=== PATIENT | male | born 1945 | race Caucasian/White ===

== ENCOUNTER 2018-02-24 13:18 | Emergency (ER) | payer MEDICARE, SELFPAY ==
[2018-02-24 13:37] VITALS: BP 154/86; PULSE 97; RESP 26; TEMP 37.3; O2SAT 96
--- NOTE | 2018-02-24 14:22 | ED.GENADUL_ITS ---
Discharge Plan Disposition Patient Disposition: HOME Condition: Good Discharge Details Chief Complaint: GenMedical Clinical Impression: URI (upper respiratory infection), Abdominal pain Primary Care Provider: Saman Enriquez ED Provider: Eulogio Leroy Home Meds and New Rx's Prescriptions: New lidocaine [Lidoderm] 1 PATCH patch 1 patch Topical Q24H Qty: 4 RF: 0 cefpodoxime 200 mg tablet 200 mg PO BID 7 Days Qty: 14 RF: 0 doxycycline hyclate 100 mg capsule 100 mg PO BID Qty: 14 RF: 0 No Action mupirocin calcium [Bactroban] 30 GM cream 1 trent Topical bid prn Qty: 30 RF: 1 aspirin 81 MG tablet,delayed release (DR/EC) 81 mg PO HS RF: 0 omeprazole 20 MG capsule,delayed release(DR/EC) 20 mg PO BID Qty: 180 RF: 4 albuterol sulfate [ProAir HFA] 8.5 GM HFA aerosol inhaler 2 puff Inhalation Q4H PRN Qty: 3 RF: 4 venlafaxine [Effexor XR] 37.5 MG capsule,extended release 24hr 37.5 mg PO DAILY Qty: 90 RF: 4 metoprolol tartrate 25 MG tablet 25 mg PO BID Qty: 180 RF: 4 cyanocobalamin (vitamin B-12) [Vitamin B-12] 1,000 MCG tablet 1,000 mcg PO DAILY Qty: 100 RF: 4 ezetimibe [Zetia] 10 MG tablet 10 mg PO DAILY Qty: 90 RF: 4 simvastatin 40 MG tablet 40 mg PO HS Qty: 90 RF: 4 nitroglycerin 0.4 MG tablet, sublingual 0.4 mg Sublingual PRN Qty: 25 RF: 1 metformin 850 MG tablet 850 mg PO BID Qty: 180 RF: 3 blood sugar diagnostic [FreeStyle Test] 1 EACH strip 1 strip Miscellaneous DAILY Qty: 100 RF: 0 lancets [FreeStyle Lancets] 1 EACH misc 1 ea Intradermal DAILY Qty: 100 RF: 0 loperamide 2 MG capsule 2 mg PO QLOOSE PRNQty: 20 RF: 0 ascorbic acid (vitamin C) [Vitamin C] 500 MG tablet 500 mg PO DAILY RF: 0 cetirizine [All Day Allergy (cetirizine)] 10 MG capsule 10 mg PO DAILY RF: 0 fluticasone-vilanterol [Breo Ellipta] 1 EACH blister with device 1 ea Inhalation DAILY RF: 0 ipratropium-albuterol 3 ML solution for nebulization 3 ml Inhalation PRN PRNRF: 0 prednisone 20 MG tablet 20 mg PO DIRECTED Qty: 12 RF: 0 Discharge Instructions Instructions: Upper Respiratory Infection (ED), Abdominal Pain (ED) Additional Instructions: Please take medication as directed. Please follow-up with your surgeon as soon as possible. If you notice any worsening of your symptoms, or any new symptoms such as vomiting, diarrhea, fever, chills, shortness of breath, chest pain, numbness, weakness, or fainting , please return immediately to the emergency department for reevaluation. Please follow up with your primary care provider as soon as possible for reassessment and reevaluation. As always, it was a pleasure participating in your medical care today. Referrals: Saman Enriquez [Primary Care Provider] - Medical Decision Making <Bob Medina MD - Last Filed: 02/24/18 15:32> 72-year-old male presents from outpatient clinic where he presented with approximately 5 days of cough and congestion. He also complains of right lower quadrant mass and tenderness in the area of previous hernia repair. He is afebrile, has a mildly increased respiratory rate and few scattered rhonchi. Exam is notable also for palpable mass of the right lower quad. Differential diagnosis includes pneumonia, influenza, as well as consideration of bowel obstruction or incarcerated hernia. Labs obtained, patient referred for CT images. Diagnostics: White blood cell count of 3.71, hematocrit 36. Chemistries reveal hyponatremia with sodium 125. Lipase is negative as is troponin. Flu neg. Lab Data Lab results reviewed: Yes I reviewed the patient's lab results. Laboratory Results - last 24 hr 02/24/18 02/24/18 14:12 14:22 WBC 3.77 L RBC 4.03 L Hgb 12.4 L Hct 36.6 L MCV 90.8 MCH 30.8 MCHC 33.9 RDW 12.8 Plt Count 217 MPV 9.2 Immature Gran % 0.0 Neutrophils % 55.1 Lymphocytes % 32.4 Monocytes % 12.2 Eosinophils % 0.0 Basophils % 0.3 Absolute Neutrophils 2.08 Absolute Lymphocytes 1.22 Absolute Monocytes 0.46 Absolute Eosinophils 0.00 Absolute Basophils 0.01 Sodium 125 L Potassium 4.1 Chloride 91 L Carbon Dioxide 24.7 Anion Gap 9.3 BUN 15 Creatinine 1.08 Estimated GFR/1.73 m2 >= 60.00 Glucose 155 H Calcium 9.1 Magnesium 1.6 L Total Bilirubin 0.3 AST 21 ALT 35 Alkaline Phosphatase 57 Troponin I 0.02 Total Protein 7.2 Albumin 4.0 Lipase 101 ECG Data Attestation: I personally reviewed and interpreted this ECG (s) as follows: Interpretation: Normal sinus rhythm, rate of 78, the QRS is narrow, there is no ST segment elevation <Eulogio Leroy DO - Last Filed: 02/24/18 18:10> Case is signed out to me my My colleague Andre Medina. Pending CT results. CT results have returned for the chest demonstrate atelectasis, for the abdomen and pelvis demonstrate good inguinal hernia and a lateral abdominal wall hernia on the right which does contain the cecum and the appendix, appendix is unremarkable. No signs of obstruction. I did discuss the case with the surgeon Dr. Kaye. She agrees with the read, and recommends no additional acute surgical intervention at this time. I evaluated the patient and he is tolerating p.o. well, he is having no vomiting, or signs of outlet obstruction. He is having regular bowel movements. He does have occasional episodes of dry heaving L. Patient's pain is well controlled. He also does suffer from upper respiratory infection-like symptoms. I am concerned for clinical pneumonia. With the longevity of his symptoms we will give antibiotics for this. Recommend continued use of his inhalers at home. We will give a Lidoderm patch for additional pain control. Vital signs are stable and reassuring. We discussed the importance of follow-up, as well as red flags for which to return the patient understands. I have extensively reviewed the treatment plan and discharge instructions with the patient and their family. I have addressed all patient concerns at this time. The patient and family was made aware of what sy mptoms to monitor for that would warrant a return to the emergency department. Discussed the plan with the patient and family, they demonstrate verbal understanding and agreement with our assessment and plan at this time. Case is signed out to me my my colleague Andre Medina FINDINGS: Lower thorax: Please see CT scan of the chest results above. ABDOMEN: Liver: There is focal fatty infiltration of the liver at the level of the falciform ligament. Gallbladder and bile ducts: There are calcified gallstones within the gallbladder. Pancreas: The pancreas is unremarkable. Spleen: The spleen is within normal limits. Adrenals: The adrenal glands are unremarkable. Kidneys and ureters: The kidneys are within normal limits. Stomach and bowel: See below. Appendix: See Soft Tissues Finding. PELVIS: Bladder: The urinary bladder is unremarkable. Reproductive: The prostate is slightly enlarged and indents the bladder base. The seminal vesicles are unremarkable. ABDOMEN and PELVIS: Intraperitoneal space: Normal. No free air. No significant fluid collection. Bones/joints: There are degenerative changes of the lumbar spine. Soft tissues: The patient is status post right inguinal hernia repair. Just superior to the hernia repair, there is a lateral right abdominal wall hernia which contains a portion of the cecum and the appendix. The appendix is within normal limits. This does not appear to be obstructing clinical correlation however is recommended. Vasculature: There are arteriosclerotic changes of the aorta. There are phleboliths within the pelvis. Lymph nodes: No enlarged lymph nodes. IMPRESSION: Status post right inguinal hernia repair. Superior to the repair there is a right lateral abdominal wall hernia which contains a portion of the cecum and the appendix. The appendix is unremarkable. This does not appear to be obstructing. Clinical correlation is recommended. Cholelithiasis. Dictated and Authenticated by: Yury Sue MD. HPI <Bob Medina MD - Last Filed: 02/24/18 15:32> General Mode of arrival: ambulatory . Date/Time Provider Initiated Documentation: 02/24/18 13:57 . Limitations to Documentation: no limitations . Information obtained by: patient and family . History of Present Illness described as moderate, Quality is described as burning, and is localized to the chest. Patient reports no radiation. Patient started experiencing this day(s) and it has been constant. No relieving factors improve symptom(s), No exacerbating factors reported . Patient notes cough, fever/chills and loss of appetite. Patient did receive the following treatments prior to arrival, none HPI Narrative: 72-year-old male referred from [facility] where he presented with approximately 5 days of cough, chest congestion with production of green and yellow sputum. He also describes days of right lower quadrant abdominal discomfort in the area of previous hernia repair. Related Data Home Medications Medication Instructions Recorded Confirmed mupirocin calcium [Bactroban] 1 trent TOPICAL bid prn #30 gm 11/06/12 aspirin 81 mg PO HS tab-cap 06/25/13 09/18/16 loperamide 2 mg PO QLOOSE PRN #20 cap 10/30/14 09/18/16 albuterol sulfate [ProAir HFA] 2 puff INHALATION Q4H PRN #3 11/26/14 inhaler omeprazole 20 mg PO BID #180 cap 11/26/14 cyanocobalamin (vitamin B-12) 1,000 mcg PO DAILY #100 tab-cap 01/10/15 [Vitamin B-12] metoprolol tartrate 25 mg PO BID #180 tab-cap 01/10/15 venlafaxine [Effexor XR] 37.5 mg PO DAILY #90 tab-cap 01/10/15 ezetimibe [Zetia] 10 mg PO DAILY #90 tab-cap 01/20/15 simvastatin 40 mg PO HS #90 tab-cap 01/20/15 nitroglycerin 0.4 mg SUBLINGUAL PRN #25 tab-cap 04/05/15 metformin 850 mg PO BID #180 tab-cap 05/11/15 blood sugar diagnostic [FreeStyle #100 strip 06/22/15 Test] lancets [FreeStyle Lancets] #100 ea 06/22/15 ascorbic acid (vitamin C) [Vitamin 500 mg PO DAILY 07/11/16 09/18/16 C] cetirizine [All Day Allergy 10 mg PO DAILY 07/16/16 09/18/16 (cetirizine)] fluticasone-vilanterol [Breo 1 ea INHALATION DAILY 07/16/16 09/18/16 Ellipta] ipratropium-albuterol 3 ml INHALATION PRN PRN 09/18/16 09/18/16 prednisone 20 mg PO DIRECTED #12 tablet 09/18/16 cefpodoxime 200 mg PO BID 7 Days #14 tab 02/24/18 doxycycline hyclate 100 mg PO BID #14 cap 02/24/18 lidocaine [Lidoderm] 1 patch TOPICAL Q24H #4 patch 02/24/18 Previous Rx's Medication Instructions Recorded loperamide 2 mg PO QLOOSE PRN #20 cap 10/30/14 prednisone 20 mg PO DIRECTED #12 tablet 09/18/16 cefpodoxime 200 mg PO BID 7 Days #14 tab 02/24/18 doxycycline hyclate 100 mg PO BID #14 cap 02/24/18 lidocaine [Lidoderm] 1 patch TOPICAL Q24H #4 patch 02/24/18 Allergies Allergy/AdvReac Type Severity Reaction Status Date / Time celecoxib Allergy Severe SWELLING Unverified 09/18/16 14:33 rosuvastatin calcium AdvReac Severe DIARRHEA Unverified 09/18/16 14:33 [From Crestor] atorvastatin AdvReac Intermediate myalgia Unverified 09/18/16 14:33 codeine phosphate AdvReac Unknown unknown Unverified 09/18/16 14:33 [From Robitussin A-C] General Stated Complaint: GenMedical BELINDA: 2 Review of Systems <Bob Medina MD - Last Filed: 02/24/18 15:32> Review of Systems 8 systems reviewed and otherwise negative PFSH <Bob Medina MD - Last Filed: 02/24/18 15:32> Surgical History VIDEO CAPSULE ENDOSCOPY (10/13/13) Family History Mother Essential hypertension Heart disease Hyperlipidemia Father Heart disease Sister Essential hypertension Hyperlipidemia Brother No problems noted. Brother Stroke Brother Essential hypertension Heart disease Hyperlipidemia Brother Essential hypertension Hyperlipidemia Brother Heart disease Grandfather Heart disease Grandfather No problems noted. Grandmother Personal history of malignant neoplasm Heart disease Grandmother No problems noted. Social History Smoking/Tobacco Use Status: Former Tobacco Use Exam <Bob Medina MD - Last Filed: 02/24/18 15:32> Narrative Exam Narrative: GEN: awake, alert, oriented 3. Pleasant, well groomed, interactive. HEAD: Normocephalic, atraumatic ENT: Mucous membranes moist, oropharynx unremarkable, External ear exam unrem arkable EYES: PERRL, EOMI NECK: Full ROM, no ANGELA, no menigismus CHEST/RESP: Nontender, few scattered rhonchi CARDIOVASCULAR: RRR, no murmur, rub jackie. 2+ Rad pulse bilateral ABDOMEN: Soft, nontender, palpable mass right lower quadrant, minimally tender without rebound or guard. +Bowel sounds EXT: Full ROM, no edema, no rash Neuro: Grossly normal neurologic exam, conversant, interactive. Psych: Speech fluent, thoughts congruent, affect normal Course <Bob Medina MD - Last Filed: 02/24/18 15:32> Vital Signs Temperature 37.3 C 02/24/18 13:37 Pulse 97 H 02/24/18 13:37 Respiratory Rate 26 H 02/24/18 13:37 Blood Pressure 154/86 H 02/24/18 13:37 Pulse Oximetry 96 02/24/18 13:37 Temperature 37.3 C 02/24/18 13:37 Temperature Source Skin 02/24/18 13:37 Pulse 97 H 02/24/18 13:37 Respiratory Rate 26 H 02/24/18 13:37 Respiratory Effort 02/24/18 13:46 Blood Pressure 154/86 H 02/24/18 13:37 Blood Pressure Position Sitting 02/24/18 13:37 Pulse Oximetry 96 02/24/18 13:37 Oxygen Delivery Method Room Air 02/24/18 13:37 Oxygen Flow Rate 0 02/24/18 13:37 Pain Level 7 02/24/18 13:37
[2018-02-24 14:30] LABS: Absolute Basophil Count 0.01 k/cumm (0.0-0.2); Absolute Lymphocyte Count 1.22 k/cumm (1.2-3.4); Absolute Monocyte Count 0.46 k/cumm (0.11-0.7); Absolute Neutrophil Count 2.08 k/cumm (1.2-6.7); Basophils % 0.3; HCT 36.6 % (40.0-50.0); HGB 12.4 g/dL (13.5-17.5); Lymphocytes % 32.4; Mean Corp. HGB Concentration 33.9 g/dL (32.0-36.0); Mean Corpuscular Hemoglobin 30.8 pg (27.0-33.0); Mean Corpuscular Volume 90.8 fL (80-95); Mean Platelet Volume 9.2 fL (8.0-11.0); Monocytes % 12.2; Neutrophils % 55.1; Platelet Count 217 x1000/uL (130-400); RBC 4.03 m/cumm (4.50-6.00); RBC Distribution Width 12.8 % (11.8-14.1); White Blood Cell Count 3.77 k/cumm (4.4-10.8)
--- NOTE | 2018-02-24 14:33 | DI.CT_ITS ---
SYMPTOM/DIAGNOSIS: COUGH , CONGESTION, RLQ MASS, MASS, ? MESH CHEST, ABDOMEN AND PELVIC CT: CT scan of the chest, abdomen and pelvis was performed following the uneventful administration of intravenous contrast material. ABDOMEN AND PELVIS: The liver is normal in size. No evidence of a hepatic mass is seen. The portal and superior mesenteric veins are patent. There are stones seen within the gallbladder. No biliary ductal dilatation is present. The pancreas is unremarkable. There is a persistent peripheral area of decreased attenuation around the spleen in the subcapsular region. This is unchanged dating back to the oldest CT scan on record of 04/12/13. There is unchanged prominence of the left adrenal gland. The right adrenal gland is unremarkable. The kidneys show normal and symmetric enhancement. No suspicious solid renal mass or obstruction is identified. The urinary bladder is intact. The reproductive organs are unremarkable. The abdominal aorta is of normal caliber with atherosclerosis. No aneurysmal dilatation is seen. No significant abdominal or pelvic adenopathy, ascites or pneumoperitoneum is present. The bowel shows no evidence of obstruction or inflammation. No findings to suggest an acute appendicitis are present. There is again seen a hernia along the right lateral anterior abdominal wall suggestive of a spigelian hernia. It contains a portion of the cecum and the appendix. No evidence of an incarceration or obstruction is present. There are post surgical changes of a right inguinal hernia with a mesh which appears unchanged. No evidence of a recurrent right inguinal hernia is seen. Degenerative changes are seen in the spine. IMPRESSION: 1. No evidence of an acute abdomen. 2. Right lateral abdominal wall hernia again noted with a loop of cecum and the appendix. No evidence of bowel obstruction or incarceration is seen. 3. Cholelithiasis. No biliary ductal dilatation. CHEST: There is atherosclerosis of the thoracic aorta but no aneurysmal dilatation. Heart size is within normal limits. No significant pericardial effusion is seen. No significant thoracic adenopathy is present. No pleural effusion or pneumothorax is identified. There are dependent atelectatic changes in the lung bases. Degenerative changes are seen in the spine. There are post surgical changes of a median sternotomy. No infiltrates are seen. The tracheobronchial tree is unremarkable. IMPRESSION: No acute pulmonary process.
[2018-02-24 14:44] LABS: ALT 35 U/L (12-78); AST 21 U/L (15-37); Alkaline Phosphatase 57 U/L (46-116); BUN 15 mg/dL (7-18); Bilirubin, Total 0.3 mg/dL (0.2-1.0); CO2 24.7 mmol/L (21.0-32.0); CREATININE 1.08 mg/dL (0.70-1.30); Calcium 9.1 mg/dL (8.5-10.1); Chloride 91 mmol/L (98-107); Glucose 155 mg/dL (70-100); Lipase 101 U/L (73-393); Magnesium 1.6 mg/dL (1.8-2.4); Potassium 4.1 mmol/L (3.5-5.1); Total Protein 7.2 g/dL (6.4-8.2); Troponin I 0.02 ng/mL (0.00-0.06)
[2018-02-24 14:48] LABS: Anion Gap 9.3 mmol/L (3-11)
[2018-02-24 14:49] LABS: Sodium 125 mmol/L (136-145)
[2018-02-24] MEDS: Normal Saline 1,000 ML 150 ML IV (15:00)
[2018-02-24] MEDS: Omnipaque 350 MG/ML 100 ML BTL IJ (16:20)
[2018-02-24] MEDS: Acetaminophen 500 MG TAB (17:10)
--- NOTE | 2018-02-24 17:19 | DI.VRAD_ITS ---
EXAM: CT Chest With Contrast EXAM DATE/TIME: 02/24/2018 2:35 PM CLINICAL HISTORY: 72 years old, male; Signs and symptoms; Other: Cough congestion plus rlq carol and mass ( mess); Prior surgery; Surgery date: 6+ months; Surgery type: Open heart ? TECHNIQUE: Axial computed tomography images of the chest with intravenous contrast. All CT scans at this facility use at least one of these dose optimization techniques: automated exposure control; mA and/or kV adjustment per patient size (includes targeted exams where dose is matched to clinical indication); or iterative reconstruction. Coronal and sagittal reformatted images were created and reviewed. CONTRAST: 100 ml of omnipaque 350 administered intravenously. COMPARISON: CT ABD PELVIS WO CONTRAST 07/03/2016 9:39 AM FINDINGS: Thyroid: The thyroid gland is within normal limits. Lungs: The tracheobronchial tree is patent bilaterally. There are slight dependent atelectatic changes at the lung bases. Pleural space: Normal. No pneumothorax. No pleural effusion. Heart: The patient is status post CABG. There are coronary artery calcifications. Aorta: There are slight arteriosclerotic changes of the aorta. Lymph nodes: No enlarged lymph nodes. Bones/joints: The patient is status post sternotomy. There are degenerative changes of the thoracic spine. Soft tissues: Unremarkable. IMPRESSION: Status post sternotomy and CABG. Coronary artery calcifications. Slight dependent atelectatic changes at the lung bases. EXAM: CT Abdomen and Pelvis With Contrast EXAM DATE/TIME: 02/24/2018 2:35 PM CLINICAL HISTORY: 72 years old, male; Signs and symptoms; Other: Cough congestion plus rlq carol and mass ( mess); Prior surgery; Surgery date: 6+ months; Surgery type: Open heart ? TECHNIQUE: Axial computed tomography images of the abdomen and pelvis with intravenous contrast. All CT scans at this facility use at least one of these dose optimization techniques: automated exposure control; mA and/or kV adjustment per patient size (includes targeted exams where dose is matched to clinical indication); or iterative reconstruction. Coronal and sagittal reformatted images were created and reviewed. CONTRAST: 100 ml of omnipaque 350 administered intravenously. COMPARISON: CT ABD PELVIS WO CONTRAST 07/03/2016 9:39 AM FINDINGS: Lower thorax: Please see CT scan of the chest results above. ABDOMEN: Liver: There is focal fatty infiltration of the liver at the level of the falciform ligament. Gallbladder and bile ducts: There are calcified gallstones within the gallbladder. Pancreas: The pancreas is unremarkable. Spleen: The spleen is within normal limits. Adrenals: The adrenal glands are unremarkable. Kidneys and ureters: The kidneys are within normal limits. Stomach and bowel: See below. Appendix: See Soft Tissues Finding. PELVIS: Bladder: The urinary bladder is unremarkable. Reproductive: The prostate is slightly enlarged and indents the bladder base. The seminal vesicles are unremarkable. ABDOMEN and PELVIS: Intraperitoneal space: Normal. No free air. No significant fluid collection. Bones/joints: There are degenerative changes of the lumbar spine. Soft tissues: The patient is status post right inguinal hernia repair. Just superior to the hernia repair, there is a lateral right abdominal wall hernia which contains a portion of the cecum and the appendix. The appendix is within normal limits. This does not appear to be obstructing clinical correlation however is recommended. Vasculature: There are arteriosclerotic changes of the aorta. There are phleboliths within the pelvis. Lymph nodes: No enlarged lymph nodes. IMPRESSION: Status post right inguinal hernia repair. Superior to the repair there is a right lateral abdominal wall hernia which contains a portion of the cecum and the appendix. The appendix is unremarkable. This does not appear to be obstructing. Clinical correlation is recommended. Cholelithiasis. Dictated and Authenticated by: Yury Sue MD. Ordering:LES Rojas MD
[2018-02-24 18:17] VITALS: BP 154/86; PULSE 97; RESP 26; TEMP 37.3; O2SAT 96
[2018-02-24 19:52] VITALS: RESP 16
--- NOTE | 2018-02-25 09:54 | CMPROGNOTE_ITS ---
Care Management Progress Note 02/25-Dr. Leroy requested assistance with a general surgery f/u within 1-2 months for abdominal wall hernia. Referral faxed to [facility] this am.
== END 2018-02-24 18:18 | disposition home or self-care (01) ==
PROVIDERS: Emergency Medicine; Emergency Provider Student in an Organized Health Care Education/Training Program; PCP Family Medicine
DX: J06.9 Acute upper respiratory infection, unspecified (principal); R10.9 Unspecified abdominal pain; K43.9 Ventral hernia without obstruction or gangrene
CPT/HCPCS: 36415; 74177; 80053; 83690; 87449; 93005; 96360; 96361; 99285; 71260; 83735; 84484; 85025; 93010; 99284; J3490

== ENCOUNTER → 2018-03-23 10:59 | Outpatient (BNVA) | payer MEDICARE, SELFPAY | PROVIDERS: PCP Family Medicine; Referring Provider Family Medicine; Visit Provider Surgery | DX: K46.0 Unspecified abdominal hernia with obstruction, without gangrene (principal) | CPT/HCPCS: 99203; 99214 ==

== ENCOUNTER 2018-11-08 11:59 | Inpatient (IN) | payer MEDICARE, SELFPAY ==
[2018-11-08] VITALS (38 sets, daily range): BP systolic 112–152; BP diastolic 61–88; PULSE 67–80; RESP 12–27; TEMP 36.5–36.7; O2SAT 91–98
[2018-11-08 12:20] LABS: Absolute Basophil Count 0.04 k/cumm (0.0-0.2); Absolute Eosinophil Count 0.53 k/cumm (0.0-0.7); Absolute Monocyte Count 0.65 k/cumm (0.11-0.7); Absolute Neutrophil Count 2.02 k/cumm (1.2-6.7); Basophils % 0.7; Eosinophils % 9.7; HCT 35.7 % (40.0-50.0); HGB 12.1 g/dL (13.5-17.5); Lymphocytes % 40.4; Mean Corp. HGB Concentration 33.9 g/dL (32.0-36.0); Mean Corpuscular Hemoglobin 30.6 pg (27.0-33.0); Mean Corpuscular Volume 90.4 fL (80-95); Mean Platelet Volume 9.2 fL (8.0-11.0); Monocytes % 11.9; Neutrophils % 37.3; Platelet Count 307 x1000/uL (130-400); RBC 3.95 m/cumm (4.50-6.00); RBC Distribution Width 12.9 % (11.8-14.1); White Blood Cell Count 5.44 k/cumm (4.4-10.8)
--- NOTE | 2018-11-08 12:20 | DI.CT_ITS ---
EXAM: CT HEAD WO CLINICAL HISTORY: L sided headache, L arm/leg weak/numb. TECHNIQUE: COMPARISON: No exams were available for comparison FINDINGS: Cranial CT was performed without contrast administration. There is mild generalized cerebral atrophy . No evidence of acute intracranial hemorrhage, mass effect, or midline shift. The orbital and temp oral bone structures appear intact. Mastoid air cells and paranasal sinuses appear well aerated as v isualized. IMPRESSION: No evidence of acute intracranial process
--- NOTE | 2018-11-08 12:22 | ED.GENADUL_ITS ---
Discharge Plan Disposition Patient Disposition: [facility] INPATIENT Condition: Stable Discharge Details Chief Complaint: CVA/TIA Clinical Impression: TIA (transient ischemic attack), Numbness and tingling of left upper and lower extremity Primary Care Provider: Christel Godoy ED Provider: Fatimah Bautista Home Meds and New Rx's Prescriptions: No Action aspirin 81 MG tablet,delayed release (DR/EC) 81 mg PO HS RF: 0 albuterol sulfate [ProAir HFA] 8.5 GM HFA aerosol inhaler 2 puff Inhalation Q4H PRN Qty: 3 RF: 4 venlafaxine [Effexor XR] 37.5 MG capsule,extended release 24hr 37.5 mg PO DAILY Qty: 90 RF: 4 cyanocobalamin (vitamin B-12) [Vitamin B-12] 1,000 MCG tablet 1,000 mcg PO DAILY Qty: 100 RF: 4 ezetimibe [Zetia] 10 MG tablet 10 mg PO DAILY Qty: 90 RF: 4 simvastatin 40 MG tablet 40 mg PO HS Qty: 90 RF: 4 omeprazole 40 mg capsule,delayed release(DR/EC) 40 mg PO DAILY RF: 0 metformin 1,000 mg tablet 1,000 mg PO BID RF: 0 Stiolto Respimat 2.5-2.5 mcg/actuation mist 2 puff IH DAILY RF: 0 nitroglycerin [Nitrostat] 0.4 mg tablet, sublingual 0.4 mg sublingual Q5M PRNRF: 0 metoprolol tartrate 25 mg tablet 12.5 mg PO BID RF: 0 acetaminophen 500 mg capsule 1,000 mg PO Q6H PRNRF: 0 ibuprofen 800 mg tablet 800 mg PO DAILY PRNRF: 0 multivitamin Tablet 1 tab PO DAILY RF: 0 fluticasone propionate [Flonase Allergy Relief] 50 mcg/actuation spray,suspension 2 spray DANDY DAILY PRNRF: 0 All Day Allergy (cetirizine) 10 MG capsule 10 mg PO DAILY RF: 0 ipratropium-albuterol 3 ML solution for nebulization 3 ml Inhalation PRN PRNRF: 0 Medical Decision Making 1210 -- 72-year-old male with history of diabetes, hypertension, coronary artery disease, ID, atrial fibrillation, CABG who presents with left arm weakness and numbness since 6:30 PM last night, and left-sided headache, neck pain, eye pain and left leg weakness and numbness since exam this morning. Patient has muscle strength 4/5 left upper and lower extremities and 5/5 right upper and lower extremities. No cranial nerve deficits noted. Vitals within normal limits. EKG notes a rate of 72, sinus, less than [address] depression noted in V4 through V6 which has been seen in previous EKG. No acute ST elevation. Patient is outside of the window for thrombolytics. Will check screening labs, sent for stat CT head. 1300 --labs and imaging reviewed and unremarkable. Normal white blood cell count, troponin, CT head and chest x-ray. Will send for CTA head and neck. 1545 --Case discussed and images reviewed with [facility] neurology -presentation could be due to small vessel territory stroke, versus TIA. Recommends aspirin and telemetry monitoring overnight and MRI, echo in the morning. Recommends permissive hypertension to keep systolic blood pressure between 180 and 200s. 1615 --discussed with hospitalist -accepts patient for admission. Medical Records Medical records reviewed: Yes I reviewed the patient's medical records. Imaging Data Radiologic Study: Radiologist's impression: CT Head Without Contrast Exam date and time: 11/08/2018 12:30 PM Clinical history: 72 years old, male; Other: L sided headache, L arm/leg weak/numb TECHNIQUE: Imaging protocol: Computed tomography of the head without contrast. Radiation optimization: All CT scans at this facility use at least one of these dose optimization techniques: automated exposure control; mA and/or kV adjustment per patient size (includes targeted exams where dose is matched to clinical indication); or iterative reconstruction. Other technique: STROKE PROTOCOL was implemented. COMPARISON: No relevant prior studies available. FINDINGS: Brain: No acute intracranial hemorrhage. There is mild diffuse heterogeneity of the white matter attenuation, consistent with chronic white matter ischemic changes. Mild cerebral atrophy Ventricles: Normal. No ventriculomegaly. Bones/joints: Unremarkable. No acute fracture. Sinuses: Visualized sinuses are unremarkable. No fluid levels. Mastoid air cells: Visualized mastoid air cells are well aerated. Soft tissues: Soft tissue swelling anterior to both globes IMPRESSION: No acute intracranial hemorrhage. XR Chest, 2 Views Exam date and time: 11/08/2018 12:33 PM Clinical history: 72 years old, male; Other: Stoke like symptoms, R/O acute disease TECHNIQUE: Imaging protocol: XR of the chest Views: 2 views. COMPARISON: CR CHEST 2 VIEWS PA,LAT 09/18/2016 4:05 PM FINDINGS: Lungs: Unremarkable. No consolidation. Pleural space: Unremarkable. No pleural effusion. No pneumothorax. Heart/Mediastinum: Unremarkable. No cardiomegaly. Bones/joints: Status post median sternotomy IMPRESSION: No acute process. CT Angiography Head With Contrast Exam date and time: 11/08/2018 1:29 PM Clinical history: 72 years old, male; Other: L sided martinez/l arm/leg weak/numb, R/O acute process TECHNIQUE: Imaging protocol: Computed tomography angiography of the head with intravenous contrast. 3D rendering: MIP reconstructed images were created and reviewed. Radiation optimization: All CT scans at this facility use at least one of these dose optimization techniques: automated exposure control; mA and/or kV adjustment per patient size (includes targeted exams where dose is matched to clinical indication); or iterative reconstruction. Contrast material: OMNIPAQUE 350; Contrast volume: 85 ml; Contrast route: IV; COMPARISON: CT HEAD WO 11/08/2018 12:27 PM FINDINGS: Plaque is seen in both intracranial ICAs. Ophthalmic artery origins are visualized bilaterally. There is narrowing/stenosis of the right supraclinoid ICA, as best seen on raw data image series 5 image 513. Left A1 segment is dominant. Right A1 segment appears small and hiatal anterior communicating artery is identified and relatively symmetric flow is seen distally in the anterior cerebral arteries. There is no high grade M1 segment stenosis. Relatively symmetric flow is seen distally in the middle cerebral arteries. Left vertebral artery is dominant. There is plaque involving the intradural vertebral arteries. The proximal intradural right vertebral artery is not well opacified but flow is seen in the right vertebral artery at the vertebrobasilar junction. Right PICA origin is identified. There is mild plaque involving the basilar artery but flow is maintained throughout the basilar artery. Superior cerebellar artery origins are identified. P1 segments are present, symmetric flow seen distally in the human factors specialist. No large aneurysm is identified There is no large proximal intraluminal filling defect or intravascular thrombus identified. No evidence of dural sinus thrombosis IMPRESSION: Intracranial atherosclerotic disease. This involves both internal carotid arteries, there is narrowing/stenosis of the right supraclinoid ICA. There is some plaque involving the vertebral arteries, basilar artery as described above. No large proximal intraluminal filling defect or intravascular thrombus is identified. To better evaluate for recent, acute or subacute ischemic change MR correlation is recommended. CT Angiography Neck With Contrast Exam date and time: 11/08/2018 1:29 PM Clinical history: 72 years old, male; Other: L sided martinez/l arm/leg weak/numb, R/O acute process TECHNIQUE: Imaging protocol: Computed tomographic angiography images of the neck with intravenous contrast using CT angiography protocol. 3D rendering: MIP reconstructed images were created and reviewed. Radiation optimization: All CT scans at this facility use at least one of these dose optimization techniques: automated exposure control; mA and/or kV adjustment per patient size (includes targeted exams where dose is matched to clinical indication); or iterative reconstruction. Contrast material: OMNIPAQUE 350; Contrast volume: 85 ml; Contrast route: IV; COMPARISON: CT HEAD WO 11/08/2018 12:27 PM FINDINGS: VASCULATURE: CT angiography of the aortic arch demonstrates origin of the brachiocephalic, left common carotid artery, left subclavian artery are patent. Relatively symmetric flow is seen distally in the subclavian arteries. Left vertebral artery is dominant. The left vertebral artery origin is patent. Right vertebral artery is hypoplastic. There is plaque seen at the right vertebral artery origin. The right cervical vertebral artery is very tiny particularly proximally. It is also mildly irregular suspicious for disease. There is plaque involving the intradural right vertebral artery which is poorly opacified. The left vertebral basilar junction is patent. The right vertebrobasilar junction is faintly visualized. Right PICA origin is identified. There is plaque at the carotid bifurcations bilaterally. On the right, plaque is both soft and calcific. There is narrowing/stenosis of the proximal right ICA. Minimal luminal diameter of the proximal right ICA is just under 2 mm. Stenosis of the proximal right internal carotid artery is estimated at 65%. There is plaque at the right external carotid artery origin which remains patent. On the left, there is some scattered plaque involving the left common carotid artery. There is plaque at the left carotid bifurcation with narrowing of the proximal left ICA. Stenosis of the proximal left ICA is slightly less prominent, estimated at approximately 50%. Flow is seen distally in both cervical ICAs. There is no intraluminal filling defect, intravascular thrombus nor evidence of acute ICA dissection. Right ICA is slightly smaller in caliber than the left NECK: Bones/joints: There are findings consistent with cervical spondylosis, degenerative disease. There is multilevel disc space narrowing in the cervical spine. There are disc osteophyte complexes, spondylitic changes of the endplate, uncovertebral and facet arthropathy. Degenerative changes lead to multilevel spinal stenosis. Spinal stenosis is present at multiple levels but appears most prominent at severe at C6-C7. Multilevel foraminal stenosis is noted. Soft tissues: There is no evidence of a discrete soft tissue mass in the neck. No significant cervical adenopathy is identified. Mild dependent atelectasis is seen in the upper lungs. There is no lobar consolidation identified. Images are mildly degraded by motion IMPRESSION: Extracranial atherosclerotic disease. There is plaque at both carotid bifurcations, with narrowing of the proximal ICAs right greater than left. Stenosis on the right is estimated at 65%. Left vertebral artery is dominant. The right cervical vertebral artery small hypoplastic and faintly opacified. It is mildly irregular suspicious for atherosclerotic disease. Cervical spondylosis, degenerative disc disease with multilevel spinal stenosis which appears most prominent/severe at C6-7. Lab Data Lab results reviewed: Yes I reviewed the patient's lab results. Labs: Laboratory Tests Range/Units 11/08/18 11/08/18 11/08/18 12:12 12:12 12:12 WBC (4.4-10.8) k/cumm 5.44 RBC (4.50-6.00) m/cumm 3.95 L Hgb (13.5-17.5) g/dL 12.1 L Hct (40.0-50.0) % 35.7 L MCV (80-95) fL 90.4 MCH (27.0-33.0) pg 30.6 MCHC (32.0-36.0) g/dL 33.9 RDW (11.8-14.1) % 12.9 Plt Count (130-400) x1000/uL 307 MPV (8.0-11.0) fL 9.2 Immature Gran % 0.0 Neutrophils % 37.3 Lymphocytes % 40.4 Monocytes % 11.9 Eosinophils % 9.7 Basophils % 0.7 Absolute Neutrophils (1.2-6.7) k/cumm 2.02 Absolute Lymphocytes (1.2-3.4) k/cumm 2.20 Absolute Monocytes (0.11-0.7) k/cumm 0.65 Absolute Eosinophils (0.0-0.7) k/cumm 0.53 Absolute Basophils (0.0-0.2) k/cumm 0.04 PT (9.3-11.0) sec 9.9 INR (0.9-1.1) 1.0 APTT (21.0-31.4) sec 24.2 Sodium (136-145) mmol/L 133 L Potassium (3.5-5.1) mmol/L 4.5 Chloride (98-107) mmol/L 98 Carbon Dioxide (21.0-32.0) mmol/L 24.8 Anion Gap (3-11) mmol/L 10.2 BUN (7-18) mg/dL 19 H Creatinine (0.70-1.30) mg/dL 1.02 Estimated GFR/1.73 m2 (mL/min/1.73m2) >= 60.00 Glucose (70-100) mg/dL 138 H Calcium (8.5-10.1) mg/dL 9.2 Total Bilirubin (0.2-1.0) mg/dL 0.5 AST (15-37) U/L 24 ALT (16-63) U/L 26 Alkaline Phosphatase (46-116) U/L 71 Troponin I (0.00-0.06) ng/mL < 0.05 Total Protein (6.4-8.2) g/dL 7.1 Albumin (3.4-5.0) g/dL 3.9 Urine Color (Yellow) Urine Clarity (Clear) Urine pH (5-8) Ur Specific [place] (1.005-1.025) Urine Protein (Negative) mg/dL Urine Ketones (Negative) mg/dL Urine Blood (Negative) Urine Nitrite (Negative) Urine Bilirubin (Negative) Urine Urobilinogen (Up TO 0.2) EU/dL Ur Leukocyte Esterase (Negative) Urine Glucose (Negative) mg/dL Range/Units 11/08/18 11/08/18 14:58 15:15 WBC (4.4-10.8) k/cumm RBC (4.50-6.00) m/cumm Hgb (13.5-17.5) g/dL Hct (40.0-50.0) % MCV (80-95) fL MCH (27.0-33.0) pg MCHC (32.0-36.0) g/dL RDW (11.8-14.1) % Plt Count (130-400) x1000/uL MPV (8.0-11.0) fL Immature Gran % Neutrophils % Lymphocytes % Monocytes % Eosinophils % Basophils % Absolute Neutrophils (1.2-6.7) k/cumm Absolute Lymphocytes (1.2-3.4) k/cumm Absolute Monocytes (0.11-0.7) k/cumm Absolute Eosinophils (0.0-0.7) k/cumm Absolute Basophils (0.0-0.2) k/cumm PT (9.3-11.0) sec INR (0.9-1.1) APTT (21.0-31.4) sec Sodium (136-145) mmol/L Potassium (3.5-5.1) mmol/L Chloride (98-107) mmol/L Carbon Dioxide (21.0-32.0) mmol/L Anion Gap (3-11) mmol/L BUN (7-18) mg/dL Creatinine (0.70-1.30) mg/dL Estimated GFR/1.73 m2 (mL/min/1.73m2) Glucose (70-100) mg/dL Calcium (8.5-10.1) mg/dL Total Bilirubin (0.2-1.0) mg/dL AST (15-37) U/L ALT (16-63) U/L Alkaline Phosphatase (46-116) U/L Troponin I (0.00-0.06) ng/mL < 0.05 Total Protein (6.4-8.2) g/dL Albumin (3.4-5.0) g/dL Urine Color (Yellow) Yellow Urine Clarity (Clear) Clear Urine pH (5-8) 5.5 Ur Specific [place] (1.005-1.025) 1.010 Urine Protein (Negative) mg/dL Negative Urine Ketones (Negative) mg/dL Negative Urine Blood (Negative) Negative Urine Nitrite (Negative) Negative Urine Bilirubin (Negative) Negative Urine Urobilinogen (Up TO 0.2) EU/dL 0.2 Ur Leukocyte Esterase (Negative) Negative Urine Glucose (Negative) mg/dL Negative ECG Data Attestation: I personally reviewed and interpreted this ECG (s) as follows: Interpretation: Rate of 72, sinus, less than [address] depression in V4 through V6 which is been seen in previous EKG. No acute ST elevation. ID [id number]. QTc 438. HPI General Mode of arrival: wheelchair . Date/Time Provider Initiated Documentation: 11/08/18 12:03 . Limitations to Documentation: no limitations . Information obtained by: patient . HPI Narrative: Patient is a 72-year-old male with multiple medical problems including diabetes, depression, hypertension, coronary artery disease, STEMI, hyperlipidemia, hypertension, CABG who presents with left arm weakness and numbness in 630 last night, and left-sided headache, neck pain and eye pain along with left leg weakness and numbness since exam this morning. He also admits to left-sided chest soreness . States his headache is currently 7/10. He denies any blurry vision, nausea, vomiting, shortness of breath, abdominal pain. He denies any pain in his left arm or leg. He denies any recent injury. Related Data Home Medications Medication Instructions Recorded Confirmed aspirin 81 mg PO HS tab-cap 06/25/13 11/08/18 albuterol sulfate [ProAir HFA] 2 puff INHALATION Q4H PRN #3 11/26/14 11/08/18 inhaler cyanocobalamin (vitamin B-12) 1,000 mcg PO DAILY #100 tab-cap 01/10/15 11/08/18 [Vitamin B-12] venlafaxine [Effexor XR] 37.5 mg PO DAILY #90 tab-cap 01/10/15 11/08/18 ezetimibe [Zetia] 10 mg PO DAILY #90 tab-cap 01/20/15 11/08/18 simvastatin 40 mg PO HS #90 tab-cap 01/20/15 11/08/18 All Day Allergy (cetirizine) 10 mg PO DAILY 07/16/16 11/08/18 ipratropium-albuterol 3 ml INHALATION PRN PRN 09/18/16 11/08/18 acetaminophen 500 mg capsule 1,000 mg PO Q6H PRN cap 10/21/18 11/08/18 fluticasone propionate 50 2 spray DANDY DAILY PRN 10/21/18 11/08/18 mcg/actuation nasal spray,suspension ibuprofen 800 mg tablet 800 mg PO DAILY PRN tab 10/21/18 11/08/18 metformin 1,000 mg tablet 1,000 mg PO BID 10/21/18 11/08/18 metoprolol tartrate 25 mg tablet 12.5 mg PO BID tab 10/21/18 11/08/18 multivitamin 1 tab PO DAILY 10/21/18 11/08/18 nitroglycerin 0.4 mg sublingual 0.4 mg SUBLINGUAL Q5M PRN 10/21/18 11/08/18 tablet omeprazole 40 mg capsule,delayed 40 mg PO DAILY 10/21/18 11/08/18 release tiotropium 2.5 mcg-olodaterol 2.5 2 puff IH DAILY 10/21/18 11/08/18 mcg/actuation mist for inhalation Allergies Allergy/AdvReac Type Severity Reaction Status Date / Time celecoxib Allergy Severe SWELLING Verified 11/08/18 12:09 rosuvastatin calcium AdvReac Severe DIARRHEA Verified 11/08/18 12:09 [From Crestor] atorvastatin AdvReac Intermediate myalgia Verified 11/08/18 12:09 codeine phosphate AdvReac Unknown unknown Verified 11/08/18 12:09 [From Robitussin A-C] General Stated Complaint: CVA/TIA BELINDA: 2 Review of Systems Review of Systems ROS Unobtainable: All systems reviewed & are unremarkable except as noted in HPI and below Constitutional Constitutional: Reports as per HPI, Denies chills, Denies fever(s) and Reports headache(s) Eyes Eyes: Denies blurry vision ENT Ears, Nose, Mouth, and Throat: Denies dizziness, Reports headache(s), Denies sore throat and Denies throat swelling Cardiovascular Cardiovascular: Denies chest pain and Denies dyspnea Respiratory Respiratory: Denies cough and Denies dyspnea Gastrointestinal Gastrointestinal: Denies abdominal pain, Denies diarrhea and Denies vomiting Genitourinary Genitourinary: Denies hematuria and Denies dysuria Musculoskeletal Musculoskeletal: Denies back pain and Reports numbness Integumentary/Breasts Skin/Breast: Denies lesions and Denies rash Neurologic Neurologic: Denies dizziness, Reports headache(s), Reports focal weakness and Reports numbness Allergic/Immunologic Allergic/Immunologic: Denies throat swelling [facility] Medical History ASCVD (arteriosclerotic cardiovascular disease) (Inactive) 11/01 CABG x 3 at [facility] (after NSTEMI) 04/04 echo [facility] LVEF 60% Inferior ID [id number] Chronic obstructive lung disease (Inactive) quit smoking 1959' Diabetes mellitus (Inactive) Gastroesophageal reflux disease (Inactive) Hyperlipidemia (Inactive) Paroxysmal atrial fibrillation (Inactive 11/24/14) STEMI (ST elevation myocardial infarction) (Resolved ~11/14/15) Surgical History S/P hernia repair (Chronic ~2012) incisional umbilical hernia repair by Dr Abiel Rivera, [facility] on 07/16/2016, right inguinal hernia repair with Dr Lan Mendoza, [facility] on 01/29/13 and on 08/13/13 also at [facility] by Dr Mendoza a repair of incisional hernia with hydrocele repair on the right. VIDEO CAPSULE ENDOSCOPY (10/13/13) [facility] Family History Mother Essential hypertension Heart disease Hyperlipidemia Father Heart disease Sister Essential hypertension Hyperlipidemia Brother , Farming accident No problems noted. Brother Stroke Brother Essential hypertension Heart disease Hyperlipidemia Brother Essential hypertension Hyperlipidemia Brother Heart disease bypass surgeries Grandfather Heart disease Grandfather No problems noted. Grandmother Personal history of malignant neoplasm Lung Heart disease Grandmother No problems noted. Social History Smoking/Tobacco Use Status: Former Tobacco Use Quit Date: 02/17/67 Tobacco: How many years used: 7 Alcohol Intake: never Drug use: Never Substance use type: does not use Do you feel safe at home: Yes Do you feel safe in your relationship?: Yes Exam Const General: cooperative, healthy appearing and no acute distress [facility] Head: normal to inspection Face and sinus: normal facial exam Eyes General: appearance normal, both eyes and all related structures Pupils: PERRL EOM: EOM intact bilaterally Neck Neck: normal visual inspection and No submandibular swelling Lymphatic: no lymphadenopathy noted Chest Chest: normal inspection of the chest and no tenderness Resp Effort & Inspection: normal respiratory effort and able to speak in complete sentences Auscultation: clear to auscultation bilaterally Cardio Rate: regular rate Rhythm: regular rhythm GI Inspection: normal to inspection Palpation: soft, not firm, not rigid and nontender Auscultation: normal bowel sounds Skin General skin exam: no rashes or lesions noted Neuro General: alert, awake and oriented x3 Cranial Nerves: CN's II-XI intact bilaterally Cognition: normal cognition Speech: speech normal Motor: other Sensory Exam: no sensory deficits noted Other: Muscle strength 4/5 left upper and lower extremities. Muscle strength 5/5 right upper and lower extremities. Right hand driver starting gate normal. Left hand driver starting gate weak. Radial/ulnar/median nerve function on right 5/5, on left 4/5. Extrem General: normal to inspection, full ROM, normal capillary refill, no calf tenderness bilaterally and no edema Psych Appearance: grossly normal Mental Status: mental status grossly normal Speech and Movement: speech and movement normal Affect: normal affect Course Vital Signs Vital signs: Vital Signs Temperature 97.7 F 11/08/18 12:04 Pulse 72 11/08/18 12:04 Respiratory Rate 22 11/08/18 12:04 Blood Pressure 127/88 11/08/18 12:04 Pulse Oximetry 97 11/08/18 12:04 Temperature 97.7 F 11/08/18 12:04 Temperature Source Temporal Artery Scan 11/08/18 12:04 Pulse 72 11/08/18 12:04 Respiratory Rate 22 11/08/18 12:04 Respiratory Effort Non-Labored 11/08/18 12:08 Blood Pressure 127/88 11/08/18 12:04 Blood Pressure Position Supine 11/08/18 12:04 Pulse Oximetry 97 11/08/18 12:04 Oxygen Delivery Method Room Air 11/08/18 12:04 Oxygen Flow Rate 0 11/08/18 12:04 Pain Level 7 11/08/18 12:04 Lab/Test Results Lab/Test Results: Laboratory Tests Range/Units 11/08/18 12:12 WBC (4.4-10.8) k/cumm 5.44 RBC (4.50-6.00) m/cumm 3.95 L Hgb (13.5-17.5) g/dL 12.1 L Hct (40.0-50.0) % 35.7 L MCV (80-95) fL 90.4 MCH (27.0-33.0) pg 30.6 MCHC (32.0-36.0) g/dL 33.9 RDW (11.8-14.1) % 12.9 Plt Count (130-400) x1000/uL 307 MPV (8.0-11.0) fL 9.2 Immature Gran % 0.0 Neutrophils % 37.3 Lymphocytes % 40.4 Monocytes % 11.9 Eosinophils % 9.7 Basophils % 0.7 Absolute Neutrophils (1.2-6.7) k/cumm 2.02 Absolute Lymphocytes (1.2-3.4) k/cumm 2.20 Absolute Monocytes (0.11-0.7) k/cumm 0.65 Absolute Eosinophils (0.0-0.7) k/cumm 0.53 Absolute Basophils (0.0-0.2) k/cumm 0.04
[2018-11-08 12:30] LABS: PTT Activated 24.2 sec (21.0-31.4); Prothrombin Time 9.9 sec (9.3-11.0)
--- NOTE | 2018-11-08 12:32 | DI.RAD_ITS ---
EXAM: XR CHEST 2V PA LATERAL INDICATION: stroke like symptoms, r/o acute disease. COMPARISON: CHEST 2 VIEWS PA,LAT from 09/18/2016 TECHNIQUE: 2D digital imaging was performed. FINDINGS: The heart is not enlarged. Note is made of mediastinal vascular clips consistent with previous CABG surgery. Lungs are generally clear. No pleural effusion seen. IMPRESSION: No evidence of acute process.
[2018-11-08 12:41] LABS: ALT 26 U/L (16-63); AST 24 U/L (15-37); Albumin 3.9 g/dL (3.4-5.0); Alkaline Phosphatase 71 U/L (46-116); Anion Gap 10.2 mmol/L (3-11); BUN 19 mg/dL (7-18); Bilirubin, Total 0.5 mg/dL (0.2-1.0); CO2 24.8 mmol/L (21.0-32.0); CREATININE 1.02 mg/dL (0.70-1.30); Calcium 9.2 mg/dL (8.5-10.1); Chloride 98 mmol/L (98-107); Glucose 138 mg/dL (70-100); Potassium 4.5 mmol/L (3.5-5.1); Sodium 133 mmol/L (136-145); Total Protein 7.1 g/dL (6.4-8.2); Troponin I < 0.05 ng/mL (0.00-0.06)
--- NOTE | 2018-11-08 12:51 | DI.VRAD_ITS ---
PROCEDURE INFORMATION: Exam: CT Head Without Contrast Exam date and time: 11/08/2018 12:30 PM Clinical history: 72 years old, male; Other: L sided headache, L arm/leg weak/numb TECHNIQUE: Imaging protocol: Computed tomography of the head without contrast. Radiation optimization: All CT scans at this facility use at least one of these dose optimization techniques: automated exposure control; mA and/or kV adjustment per patient size (includes targeted exams where dose is matched to clinical indication); or iterative reconstruction. Other technique: STROKE PROTOCOL was implemented. COMPARISON: No relevant prior studies available. FINDINGS: Brain: No acute intracranial hemorrhage. There is mild diffuse heterogeneity of the white matter attenuation, consistent with chronic white matter ischemic changes. Mild cerebral atrophy Ventricles: Normal. No ventriculomegaly. Bones/joints: Unremarkable. No acute fracture. Sinuses: Visualized sinuses are unremarkable. No fluid levels. Mastoid air cells: Visualized mastoid air cells are well aerated. Soft tissues: Soft tissue swelling anterior to both globes IMPRESSION: No acute intracranial hemorrhage. ASSESSMENT: ASPECTS (Alejandra Stroke Program Early CT Score) is 10 Dictated and Authenticated by: Mariajose Munoz MD. Ordering:BERONICA Sheridan MD
--- NOTE | 2018-11-08 12:55 | DI.VRAD_ITS ---
PROCEDURE INFORMATION: Exam: XR Chest, 2 Views Exam date and time: 11/08/2018 12:33 PM Clinical history: 72 years old, male; Other: Stoke like symptoms, R/O acute disease TECHNIQUE: Imaging protocol: XR of the chest Views: 2 views. COMPARISON: CR CHEST 2 VIEWS PA,LAT 09/18/2016 4:05 PM FINDINGS: Lungs: Unremarkable. No consolidation. Pleural space: Unremarkable. No pleural effusion. No pneumothorax. Heart/Mediastinum: Unremarkable. No cardiomegaly. Bones/joints: Status post median sternotomy IMPRESSION: No acute process Dictated and Authenticated by: Mariajose Munoz MD. Ordering:BERONICA Sheridan MD
[2018-11-08] MEDS: Omnipaque 350 MG/ML 100 ML BTL IV (13:16)
[2018-11-08] MEDS: Normal Saline Flush 10 ML SYR IVP (13:23)
--- NOTE | 2018-11-08 13:23 | DI.CT_ITS ---
EXAM: CT BRAIN NECK CTA CLINICAL HISTORY: L sided [place]/L arm/leg weak/numb, r/o acute process. TECHNIQUE: CT angiography of the cervical and cranial regions was performed with intravenous infusio n of 100 cc of Omnipaque 350 COMPARISON: CT CHEST/ABD/PEL W from 02/24/2018 FINDINGS: Images obtained through the lung apices are unremarkable. The tracheal laryngeal structures appear i ntact. No evidence of cervical mass or adenopathy. The vertebral circulation is left dominant with a miniscule but patent right vertebral artery. Mild calcific plaque at the left vertebral artery origin, no stenosis or dissection. Basilar artery is un remarkable without stenosis or dissection. Posterior cerebral arteries are unremarkable without sten osis or dissection. No aneurysm identified. Common carotid arteries are unremarkable bilaterally to the level of the bifurcations. There is narr owing of the proximal internal carotid arteries bilaterally, estimated at 65 percent on the right and 50 percent luminal diameter on the left. Remainder of the extra cranial carotid internal carotid ar teries are unremarkable. There is moderate calcific plaque in the cavernous portion of the intracranial ICAs bilaterally. The re is a stenosis of the right supraclinoid ICA estimated at 80 percent of the luminal diameter. Sten osis of supraclinoid ICA on the left, estimated at less than 50 percent luminal diameter. Middle cer ebral arteries and major branches appear intact. Anterior cerebral arteries appear intact bilaterall y. IMPRESSION: Findings suggesting luminal diameter stenosis proximal right ICA, approximately 65 percent, left ICA approximately 50 percent Findings suggesting supraclinoid ICA stenosis bilaterally, 80 percent luminal diameter on the right a nd less than 50 percent luminal diameter on the left
--- NOTE | 2018-11-08 14:06 | DI.VRAD_ITS ---
PROCEDURE INFORMATION: Exam: CT Angiography Head With Contrast Exam date and time: 11/08/2018 1:29 PM Clinical history: 72 years old, male; Other: L sided martinez/l arm/leg weak/numb, R/O acute process TECHNIQUE: Imaging protocol: Computed tomography angiography of the head with intravenous contrast. 3D rendering: MIP reconstructed images were created and reviewed. Radiation optimization: All CT scans at this facility use at least one of these dose optimization techniques: automated exposure control; mA and/or kV adjustment per patient size (includes targeted exams where dose is matched to clinical indication); or iterative reconstruction. Contrast material: OMNIPAQUE 350; Contrast volume: 85 ml; Contrast route: IV; COMPARISON: CT HEAD WO 11/08/2018 12:27 PM FINDINGS: Plaque is seen in both intracranial ICAs. Ophthalmic artery origins are visualized bilaterally. There is narrowing/stenosis of the right supraclinoid ICA, as best seen on raw data image series 5 image 513. Left A1 segment is dominant. Right A1 segment appears small and hiatal anterior communicating artery is identified and relatively symmetric flow is seen distally in the anterior cerebral arteries. There is no high grade M1 segment stenosis. Relatively symmetric flow is seen distally in the middle cerebral arteries. Left vertebral artery is dominant. There is plaque involving the intradural vertebral arteries. The proximal intradural right vertebral artery is not well opacified but flow is seen in the right vertebral artery at the vertebrobasilar junction. Right PICA origin is identified. There is mild plaque involving the basilar artery but flow is maintained throughout the basilar artery. Superior cerebellar artery origins are identified. P1 segments are present, symmetric flow seen distally in the fertilizer applicator. No large aneurysm is identified There is no large proximal intraluminal filling defect or intravascular thrombus identified. No evidence of dural sinus thrombosis IMPRESSION: Intracranial atherosclerotic disease. This involves both internal carotid arteries, there is narrowing/stenosis of the right supraclinoid ICA. There is some plaque involving the vertebral arteries, basilar artery as described above. No large proximal intraluminal filling defect or intravascular thrombus is identified. To better evaluate for recent, acute or subacute ischemic change MR correlation is recommended. PROCEDURE INFORMATION: Exam: CT Angiography Neck With Contrast Exam date and time: 11/08/2018 1:29 PM Clinical history: 72 years old, male; Other: L sided martinez/l arm/leg weak/numb, R/O acute process TECHNIQUE: Imaging protocol: Computed tomographic angiography images of the neck with intravenous contrast using CT angiography protocol. 3D rendering: MIP reconstructed images were created and reviewed. Radiation optimization: All CT scans at this facility use at least one of these dose optimization techniques: automated exposure control; mA and/or kV adjustment per patient size (includes targeted exams where dose is matched to clinical indication); or iterative reconstruction. Contrast material: OMNIPAQUE 350; Contrast volume: 85 ml; Contrast route: IV; COMPARISON: CT HEAD WO 11/08/2018 12:27 PM FINDINGS: VASCULATURE: CT angiography of the aortic arch demonstrates origin of the brachiocephalic, left common carotid artery, left subclavian artery are patent. Relatively symmetric flow is seen distally in the subclavian arteries. Left vertebral artery is dominant. The left vertebral artery origin is patent. Right vertebral artery is hypoplastic. There is plaque seen at the right vertebral artery origin. The right cervical vertebral artery is very tiny particularly proximally. It is also mildly irregular suspicious for disease. There is plaque involving the intradural right vertebral artery which is poorly opacified. The left vertebral basilar junction is patent. The right vertebrobasilar junction is faintly visualized. Right PICA origin is identified. There is plaque at the carotid bifurcations bilaterally. On the right, plaque is both soft and calcific. There is narrowing/stenosis of the proximal right ICA. Minimal luminal diameter of the proximal right ICA is just under 2 mm. Stenosis of the proximal right internal carotid artery is estimated at 65%. There is plaque at the right external carotid artery origin which remains patent. On the left, there is some scattered plaque involving the left common carotid artery. There is plaque at the left carotid bifurcation with narrowing of the proximal left ICA. Stenosis of the proximal left ICA is slightly less prominent, estimated at approximately 50%. Flow is seen distally in both cervical ICAs. There is no intraluminal filling defect, intravascular thrombus nor evidence of acute ICA dissection. Right ICA is slightly smaller in caliber than the left NECK: Bones/joints: There are findings consistent with cervical spondylosis, degenerative disease. There is multilevel disc space narrowing in the cervical spine. There are disc osteophyte complexes, spondylitic changes of the endplate, uncovertebral and facet arthropathy. Degenerative changes lead to multilevel spinal stenosis. Spinal stenosis is present at multiple levels but appears most prominent at severe at C6-C7. Multilevel foraminal stenosis is noted. Soft tissues: There is no evidence of a discrete soft tissue mass in the neck. No significant cervical adenopathy is identified. Mild dependent atelectasis is seen in the upper lungs. There is no lobar consolidation identified. Images are mildly degraded by motion IMPRESSION: Extracranial atherosclerotic disease. There is plaque at both carotid bifurcations, with narrowing of the proximal ICAs right greater than left. Stenosis on the right is estimated at 65%. Left vertebral artery is dominant. The right cervical vertebral artery small hypoplastic and faintly opacified. It is mildly irregular suspicious for atherosclerotic disease. Cervical spondylosis, degenerative disc disease with multilevel spinal stenosis which appears most prominent/severe at C6-7. COMMENT: Reference per NASCET criteria for degree of stenosis: Mild: less than 50% stenosis. Moderate: 50-69% stenosis. Severe: 70-94% stenosis. Near occlusion: 95-99% stenosis. Dictated and Authenticated by: Echo Bloom MD. Ordering:BERONICA Sheridan MD
[2018-11-08 15:24] LABS: Troponin I < 0.05 ng/mL (0.00-0.06)
[2018-11-08 15:27] LABS: Bilirubin Negative (Negative); Blood Negative (Negative); Clarity Clear (Clear); Glucose Negative (Negative); Ketones Negative (Negative); Leukocyte Esterase Negative (Negative); Nitrite Negative (Negative); Urobilinogen 0.2 EU/dL (Up TO 0.2); pH 5.5 (5-8)
[2018-11-08] MEDS: Aspirin 325 MG TAB PO (16:53)
--- NOTE | 2018-11-08 17:52 | HPE_ITS ---
Date of service: 11/08/18 Time of Service: 17:52 Assessment and Plan Assessment and plan (1) CVA (cerebral vascular accident): Status: Suspected Assessment and plan: Suspected - however, not all features fit, and so other reasons for neurological symptoms need to be considered (i.e. atypical migraine, neurologic Lyme disease, possible cervical nerve impingement). Consult neurology. Monitor on telemetry, with plans for MRI/MRA brain in am, MRI c- spine, echo, and neurology consult. Will provide permissive hypertension tonight. Increase asa to 325 mg daily; check lipids. (2) Chronic obstructive lung disease: Status: Acute Assessment and plan: at baseline. Continue home therapy (3) Diabetes mellitus: Status: Acute Assessment and plan: Hold metformin. Cover with SSI. (4) ASCVD (arteriosclerotic cardiovascular disease): Status: Chronic Assessment and plan: stable. Holding beta blockers tonight. Check FLP. (5) Paroxysmal atrial fibrillation: Status: Chronic Assessment and plan: Presently in NSR. If indeed has a CVA, cardioembolic disease is high on differential and HARRY/anticoagulation should be considered. (6) DVT prophylaxis: Status: Acute Assessment and plan: TEDs + SCD's. Chemical DVT ppx is contraindicated in setting of acute CVA due to a risk of hemorrhagic conversion. (7) Discharge planning issues: Status: Acute Assessment and plan: Full code History of Present Illness History of Present Illness Chief Complaint: My arm and leg have no strength in them Narrative: Mr Walker is a 72 year old male with PMHx of CAD s/p stent in and CABG x3 four years ago at [facility], as well as paroxysmal Afib, on baby aspirin, but not anticoagulation, as well as hypertension, hyperlipidemia, non oxygen-dependent COPD, who has presented to [facility] ED today complaining of numbness, tingling and weakness of his LUE since 6 pm yesterday, LLE weakness since this morning, as well as L-sided neck and shoulder pain radiating to around his L ear and around his eye. The left eye feels sore. Light seems to be bothering his left eye but not his right. At about noon today, the family noticed a left facial droop. The family also thinks that the patient is slurring his words (though I cannot appreciate this). The patient reports difficulty swallowing both yesterday and today, especially when it comes to solids. He seems to have done ok with water. He denies any trauma to his neck and has not participated in any strenuous activities. He can reproduce the pain in his L neck, shoulder and upper chest. He is able to move his neck with some pain but in every direction. He denies any visual changes. In the ED, he was found to have decreased strength in LUE/LLE. CT/CTA head/neck were negative for acute infarct; there is a 65% proximal R ICA stenosis and 50% L proximal ICA stenosis. Multilevel spinal stenosis is also noted. [facility] neurology was contacted by Dr Estrada (ED provider) and recommends observing the patient on telemetry overnight with MRI and echo in am. Review of Systems Review of Systems Narrative: 12 systems reviewed. Pertinent positives and negatives are as per HPI. Additionally, denies nausea, endorses a brief feeling of dizziness yesterday. Denies tick bites. Does have contact with horses across the street. Denies rashes. [facility] Medical History (Updated 11/08/18 @ 18:44 by Teresa Colon MD) ASCVD (arteriosclerotic cardiovascular disease) (Chronic) 11/01 CABG x 3 at [facility] (after NSTEMI) 04/[address] [facility] LVEF 60% Inferior [place] 1998 Chronic back pain (Acute) Chronic obstructive lung disease (Acute) quit smoking ; non-oxygen dependent Diabetes mellitus (Acute) non-insulin dependent Difficulty hearing (Acute) Gastroesophageal reflux disease (Inactive) Hyperlipidemia (Inactive) Hypertension (Chronic) Paroxysmal atrial fibrillation (Inactive 11/24/14) STEMI (ST elevation myocardial infarction) (Resolved ~11/14/15) Surgical History (Updated 11/08/18 @ 18:27 by Teresa Colon MD) S/P CABG x 3 (Acute) S/P coronary artery stent placement (Acute) S/P hernia repair (Chronic ~2012) incisional umbilical hernia repair by Dr Abiel Rivera, [facility] on 07/16/2016, right inguinal hernia repair with Dr Lan Mendoza, [facility] on 01/29/13 and on 08/13/[address] [facility] by Dr Mendoza a repair of incisional hernia with hydrocele repair on the right. S/P repair of hydrocele (Acute) S/P tonsillectomy (Acute) VIDEO CAPSULE ENDOSCOPY (10/13/13) [facility] Family History Mother Essential hypertension Heart disease Hyperlipidemia Father Heart disease Sister Essential hypertension Hyperlipidemia Brother , Farming accident No problems noted. Brother Stroke Brother Essential hypertension Heart disease Hyperlipidemia Brother Essential hypertension Hyperlipidemia Brother Heart disease bypass surgeries Grandfather Heart disease Grandfather No problems noted. Grandmother Personal history of malignant neoplasm Lung Heart disease Grandmother No problems noted. Social History (Updated 11/08/18 @ 18:28 by Teresa Colon MD) Smoking/Tobacco Use Status: Former Tobacco Use Quit Date: 02/17/67 Tobacco: How many years used: 7 Alcohol Intake: former Details: history of alcohol abuse Drug use: Never Substance use type: does not use Do you feel safe at home: Yes Do you feel safe in your relationship?: Yes Meds Home Medications and Allergies Home Medications Medication Instructions Recorded Confirmed Type aspirin 81 mg PO HS tab-cap 06/25/13 11/08/18 History albuterol sulfate [ProAir HFA] 2 puff INHALATION Q4H PRN #3 11/26/14 11/08/18 History inhaler cyanocobalamin (vitamin B-12) 1,000 mcg PO DAILY #100 tab-cap 01/10/15 11/08/18 History [Vitamin B-12] venlafaxine [Effexor XR] 37.5 mg PO DAILY #90 tab-cap 01/10/15 11/08/18 History ezetimibe [Zetia] 10 mg PO DAILY #90 tab-cap 01/20/15 11/08/18 History simvastatin 40 mg PO HS #90 tab-cap 01/20/15 11/08/18 History All Day Allergy (cetirizine) 10 mg PO DAILY 07/16/16 11/08/18 History acetaminophen 500 mg capsule 1,000 mg PO Q6H PRN cap 10/21/18 11/08/18 History fluticasone propionate 50 2 spray DANDY DAILY PRN 10/21/18 11/08/18 History mcg/actuation nasal spray,suspension ibuprofen 800 mg tablet 800 mg PO DAILY PRN tab 10/21/18 11/08/18 History metformin 1,000 mg tablet 1,000 mg PO BID 10/21/18 11/08/18 History metoprolol tartrate 25 mg tablet 12.5 mg PO BID tab 10/21/18 11/08/18 History multivitamin 1 tab PO DAILY 10/21/18 11/08/18 History nitroglycerin 0.4 mg sublingual 0.4 mg SUBLINGUAL Q5M PRN 10/21/18 11/08/18 History tablet omeprazole 40 mg capsule,delayed 40 mg PO DAILY 10/21/18 11/08/18 History release tiotropium 2.5 mcg-olodaterol 2.5 2 puff IH DAILY 10/21/18 11/08/18 History mcg/actuation mist for inhalation Allergies Allergy/AdvReac Type Severity Reaction Status Date / Time celecoxib Allergy Severe SWELLING Verified 11/08/18 12:09 rosuvastatin calcium AdvReac Severe DIARRHEA Verified 11/08/18 12:09 [From Crestor] atorvastatin AdvReac Intermediate myalgia Verified 11/08/18 12:09 codeine phosphate AdvReac Unknown unknown Verified 11/08/18 12:09 [From [place] A-C] Exam Narrative Exam Narrative: General: Very pleasant, mildly anxious-appearing elderly male, looks scared, laying comfortably flat in bed in the dark, covers eyes when I turn the light on, A&Ox3, I do not appreciate a speech deficit Neurological: A&OX3, L facial droop, photophobia, TYLER, EOMI, L-sided facial numbness, MAX/LLE numbness to touch, 3/5 strength LUE, 5/5 RUE, 4/5 LLE, 5/5 RLE. ?clonus. I am unable to accurately assess plantar response - the patient has an exaggerated response with bilateral tremors. Intact finger to nose on the Right. Patient is unable to lift up his left arm for [id number] testing. 1+ patellar reflex on L, 2+ on R. Psychiatric: normal speech pattern/content, anxious/mildly depressed/flat affect Skin: visible skin intact HEENT: Atraumatic, normocephalic, EOMI, MMM, clear oropharynx, no submandibular or cervical lymphadenopathy, no goiter or JVD; L neck/shoulder with muscle groups that are tender to palpation. Pain on turning the head to the left but he can do it. No neck stiffness. Able to flex neck in an attempt to touch chin to chest, but he is not able to do this completely. Cardiovascular: RRR, + GENEVA Lungs: CTAB Gastrointestinal: abdomen is soft, nontender, nondistended Extremities: no e/c/c BLE's; 1+ pedal pulses B; no foot lesions B. LLE numb/4/5 strength Results Imaging Additional studies: EKG: HR 72, NSR, mild inferiolateral ST depression, nonspecific, no acute ischemia Labs Result diagrams: 11/08/18 12:12 11/08/18 12:12 Labs: Laboratory Results - last 24 hr 11/08/18 11/08/18 11/08/18 12:12 12:12 12:12 WBC 5.44 RBC 3.95 L Hgb 12.1 L Hct 35.7 L MCV 90.4 MCH 30.6 MCHC 33.9 RDW 12.9 Plt Count 307 MPV 9.2 Immature Gran % 0.0 Neutrophils % 37.3 Lymphocytes % 40.4 Monocytes % 11.9 Eosinophils % 9.7 Basophils % 0.7 Absolute Neutrophils 2.02 Absolute Lymphocytes 2.20 Absolute Monocytes 0.65 Absolute Eosinophils 0.53 Absolute Basophils 0.04 PT 9.9 INR 1.0 APTT 24.2 Sodium 133 L Potassium 4.5 Chloride 98 Carbon Dioxide 24.8 Anion Gap 10.2 BUN 19 H Creatinine 1.02 Estimated GFR/1.73 m2 >= 60.00 Glucose 138 H Calcium 9.2 Total Bilirubin 0.5 AST 24 ALT 26 Alkaline Phosphatase 71 Troponin I < 0.05 Total Protein 7.1 Albumin 3.9 Urine Color Urine Clarity Urine pH Ur Specific [place] Urine Protein Urine Ketones Urine Blood Urine Nitrite Urine Bilirubin Urine Urobilinogen Ur Leukocyte Esterase Urine Glucose 11/08/18 11/08/18 14:58 15:15 WBC RBC Hgb Hct MCV MCH MCHC RDW Plt Count MPV Immature Gran % Neutrophils % Lymphocytes % Monocytes % Eosinophils % Basophils % Absolute Neutrophils Absolute Lymphocytes Absolute Monocytes Absolute Eosinophils Absolute Basophils PT INR APTT Sodium Potassium Chloride Carbon Dioxide Anion Gap BUN Creatinine Estimated GFR/1.73 m2 Glucose Calcium Total Bilirubin AST ALT Alkaline Phosphatase Troponin I < 0.05 Total Protein Albumin Urine Color Yellow Urine Clarity Clear Urine pH 5.5 Ur Specific [place] 1.010 Urine Protein Negative Urine Ketones Negative Urine Blood Negative Urine Nitrite Negative Urine Bilirubin Negative Urine Urobilinogen 0.2 Ur Leukocyte Esterase Negative Urine Glucose Negative Last Vital Signs Temp 36.5 C 11/08/18 12:04 Pulse 74 11/08/18 16:31 Resp 13 11/08/18 16:45 BP 120/65 11/08/18 16:31 Pulse Ox 95 11/08/18 16:45
[2018-11-08] MEDS: Normal Saline 1,000 ML 125 ML IV (18:25)
[2018-11-08] MEDS: Simvastatin 40 MG TAB PO (21:28)
[2018-11-09] VITALS (9 sets, daily range): BP systolic 146–188; BP diastolic 70–105; PULSE 70–86; RESP 16–18; TEMP 36.1–36.9; O2SAT 96–98
--- NOTE | 2018-11-09 01:25 | NUR.NOTE ---
Nursing Note: Pt was admitted in Rm 210. AO x 3. Verbalized of left neck pain that radiates to head and shoulder when touched. Left arm is rigid, affected fingers able to move.Supervised at supper time., self fed using his right hand., no difficulty in swallowing.. Left leg weak and spastic. FS was 145 and refused to receive insulin, he stated it ruin his metformin as home meds.
[2018-11-09] MEDS: Normal Saline 1,000 ML 125 ML IV ×2 (02:26→13:59)
[2018-11-09 07:39] LABS: Abs Immature Grans 0.01 k/cumm (0.0-0.09); Absolute Basophil Count 0.05 k/cumm (0.0-0.2); Absolute Eosinophil Count 0.41 k/cumm (0.0-0.7); Absolute Monocyte Count 0.43 k/cumm (0.11-0.7); Absolute Neutrophil Count 2.25 k/cumm (1.2-6.7); Basophils % 1.1; Eosinophils % 8.8; HGB 11.7 g/dL (13.5-17.5); Immature Grans % 0.2; Lymphocytes % 32.3; Mean Corp. HGB Concentration 33.4 g/dL (32.0-36.0); Mean Corpuscular Hemoglobin 30.2 pg (27.0-33.0); Mean Corpuscular Volume 90.2 fL (80-95); Mean Platelet Volume 9.3 fL (8.0-11.0); Monocytes % 9.2; Neutrophils % 48.4; Platelet Count 305 x1000/uL (130-400); RBC 3.88 m/cumm (4.50-6.00); RBC Distribution Width 12.9 % (11.8-14.1); White Blood Cell Count 4.65 k/cumm (4.4-10.8)
--- NOTE | 2018-11-09 08:00 | DI.MRI_ITS ---
EXAM: MR ANGIO BRAIN WO CLINICAL HISTORY: suspected CVA. TECHNIQUE: Multiplanar multisequence MRI was performed. COMPARISON: No exams were available for comparison FINDINGS: MR angiography of the [id number] region was performed according to the usual protocol. The rodolfo ges are of limited technical quality. No gross aneurysm identified. No evidence of occlusion. Vess el contours are poorly visualized particularly in the distal intracranial ICA and proximal middle cer ebral arteries bilaterally. Anterior cerebral arteries also not ideally visualized particularly prox imally. IMPRESSION: Examination limited by artifact. No gross occlusion or aneurysm. Stenosis not excluded on the basis o f this examination. Additional evaluation with CT angiography is suggested if clinically indicated
[2018-11-09 08:21] LABS: Anion Gap 11.2 mmol/L (3-11); CO2 23.8 mmol/L (21.0-32.0); CREATININE 0.85 mg/dL (0.70-1.30); Calcium 8.4 mg/dL (8.5-10.1); Calculated LDL 74 mg/dL; Chloride 101 mmol/L (98-107); Cholesterol 126 mg/dL (50-200); Glucose 150 mg/dL (70-100); HDL Cholesterol 41 mg/dL (40-60); Magnesium 1.7 mg/dL (1.8-2.4); Potassium 4.2 mmol/L (3.5-5.1); Sodium 136 mmol/L (136-145); TSH (W/Ref FT4) 2.68 uIU/mL (0.36-3.74); Triglyceride 58 mg/dL (30-150); Vitamin B12 499 pg/mL (193-986)
[2018-11-09 08:33] LABS: BUN 13 mg/dL (7-18)
--- NOTE | 2018-11-09 08:50 | DI.MRI_ITS ---
EXAM: MR BRAIN WO CLINICAL HISTORY: suspected CVA. TECHNIQUE: Multiplanar multisequence MRI was performed. COMPARISON: MR ANGIO BRAIN WO from 11/09/2018 FINDINGS: There is mild generalized cerebral atrophy and there are areas of minimally abnormal signal in perive ntricular white matter consistent with microvascular ischemic changes. He the orbital and temporal b one structures appear intact. Pituitary unremarkable. Susceptibility weighted imaging shows no evid ence of intracranial hemorrhage. Diffusion-weighted imaging shows a couple of tiny questionable area s of abnormal signal in the high right parietal lobe, possible ADC map match, these could represent v chaparro tiny areas of acute or subacute infarction but this is a questionable finding. No additional are a of abnormal diffusion seen. IMPRESSION: Conclusion mild cerebral atrophy and microvascular ischemic changes. Question focal acute or subacute infarcts in watershed region of high right parietal lobe.
--- NOTE | 2018-11-09 08:50 | OTIE_ITS ---
Occupational Therapy Notes Inpatient Occupational Therapy Evaluation Date: 11/09/18 Referring Doctor: Teresa Colon MD OT Orders: Urgent- safety consult for D/C Precautions: fall, standard PATIENT PROFILE/ADMITTING DIAGNOSIS: Pt is a 72 year old male who was admitted to [facility] through the ER for diagnosis of TIA (transient ischemic attack), Numbne ss and tingling of left upper and lower extremity. Pt is undergoing testing today which he reports thatis to test for Lyme and other issues that may be causing this. Past Medical History: Medical History ASCVD (arteriosclerotic cardiovascular disease) (Inactive) 11/01 CABG x 3 at [facility] (after NSTEMI) 04/[address] [facility] LVEF 60% Inferior [place] 1998 Chronic obstructive lung disease (Inactive) quit smoking Diabetes mellitus (Inactive) Gastroesophageal reflux disease (Inactive) Hyperlipidemia (Inactive) Paroxysmal atrial fibrillation (Inactive 11/24/14) STEMI (ST elevation myocardial infarction) (Resolved ~11/14/15) Surgical History S/P hernia repair (Chronic ~2012) incisional umbilical hernia repair by Dr Abiel Rivera, [facility] on 07/16/2016, right inguinal hernia repair with Dr Lan Mendoza, [facility] on 01/29/13 and on 08/13/[address] [facility] by Dr Mendoza a repair of incisional hernia with hydrocele repair on the right. VIDEO CAPSULE ENDOSCOPY (10/13/13) [facility] Current Functional Limitations: Unable to perform his ADLs/IADLS or functional mobility without (A) due to weakness in his (L) UE/LE. Social History/Home Situation: Pt lives in a private home with his in [place]. He states that at baseline he is totally (I) all ADLS/IADLs. He does not need any (A) with any of his functional activities or functional mobility. He states that he is not at his baseline level of function at this time. Equipment owned/DME: Grab bars in bathroom. SUBJECTIVE: Pt was lying in bed when OT arrived. He reports that he is not sure how this all happened but he feels weak throughout his (L) side of his body. He is agreeable to OT session. OBJECTIVE: General Observation: IV (R) UE, telemetry, JOSE stockings, no slurring of speech appreciated during OT session, pt is able to answer questions appropriately. Mental Status: A&Ox3 Pain: no c/o pain ROM: RUE AROM WNL, shoulder flexion limited to 130* due to rotator cuff pathology (chronic) L UE AROM shoulder flexion limited to 30*, elbow 90*, hand and digits WNL, PROM to shoulder to 130* with pain at end range in (L) trap noted. STRENGTH: RUE Shoulder flexion 4/5, bicep 4-/5, tricep 4/5, computer forensics technician is strong and symmetrical LUE Shoulder flexion 3/5, bicep 3+/5, tricep 4-/5, computer forensics technician is strong and symmetrical SENSATION: Pt has numbness and tingling in (L) UE/LE. FUNCTIONAL MOBILITY/ADLS: Transfers Supine-sit Mod vc and min (A) Sit-supine Mod vc and min (A) BATHING Sitting on side of bed with max (A) set up Bathing UE (I) washing (L) UE, face, neck and abdomen, mod-max (A) with min vc washing (R) UE with use of (L) UE due to lack of AROM with (L) UE Bathing LE Mod (A) (B) LE DRESSING Sitting on side of bed Dressing UE Mod (A) don and doffing hospital gown with min vc Dressing LE Max (A) don and doffing (B) socks GROOMING NT TOILETING (I) with use of urinal, unable to ambulate (I) to toilet at this time. EATING NT pt states that he has not had to cut his own food at this time, utilizes his (R) UE when he eats and is unable to perform (B) hand use at this time. BALANCE: Static sitting Good Dynamic Sitting Fair Static Standing NT Dynamic Standing NT SPECIAL TESTS: Daily Activity Limitations Standardized Measure [facility] AM -PAC ?6 clicks? Daily Activity Inpatient Short Form: Raw score: 18 Standardized score: 38.66 CMS score: 46.65% INFORMED CONSENT/EDUCATION: Pt instructed in purpose of OT Consult and plan of care. ASSESSMENT: Patient is a 72-year-old male referred to occupational therapy services with diagnosis of TIA (transient ischemic attack), Numbness and tingling of left upper and lower extremity. Patient presents with clinical signs and symptoms consistent with weakness in his (L) UE/LE , decreased performance of ADLs and unable to perform functional mobility, as demonstrated by the following impairment level findings: Decreased (L) UE shoulder, elbow AROM, (B) rotator cuff pathology, pain in (L) UE/LE, decreased bed mobility, decreased functional mobility, decrease gross and fine motor control of (L) UE/LE, decreased functional activity tolerance, decreased ability to perform ADLs/IADLs without (A). Impairments are contributing to the following functional limitations: Unable to perform LE bathing sitting on side of the bed, unable to wash (R) UE with use of (L) UE, decreased functional activity tolerance, decreased functional mobility and unable to stand without (A), numbness and tingling in (L) UE/LE, decreased ability to perform dressing in sitting position (I), unable to ambulate to toilet, decreased bed mobility. Pt would benefit from skilled OT services for progression of functional (I) in his ADL/IADL routines, education on energy conservation techniques and adaptive equipment as needed to increase his (I) in ADL/IADL routines. AMPAC score 18, CMS score 46.65% Patient is assessed as a high 72882 complexity based on the following: History: See Above Examination: See functional limitations as listed above Presentation: Evolving Decision Making: AMPAC score 18, CMS score 46.65% GOALS Goals x1 week 1. Transfers (S), LRD 2. Dressing Sitting in chair (I) UE, (I) LE 3. Bathing Sitting in chair (I) UE, (I) LE 4. Toileting on toilet (I) 5. Eating (I) in sitting position with cutting food and food to mouth translation 6. Standing at sink (I) with brushing teeth PLAN OF CARE/TREATMENT PLAN: 1x/day, 5 days/ week x 1week Initiate Occupational Therapy Services for bathing, dressing, grooming, to ileting, eating, transfer training. DISCHARGE RECOMMENDATIONS Short term stay at SNF vs. Home with HH services. Based on pts current functional limitations OT does not feel that pt is safe to return home at this time. He is unable to perform functional mobility or ADLs/IADLs at his baseline level of function. OT will continue to assess pts functional (I). TREATMENT TIME/MINUTES/CODES [id number], [id number], 35 minutes (07:05) Rachell Clements OTR/[facility]
[2018-11-09 08:53] LABS: Hemoglobin A1C 7.4 % (4.5-6.2)
--- NOTE | 2018-11-09 09:45 | MERGE_ITS ---
*[facility]* *[facility]* [address] [place] [address] Date of study: 11/09/2018 Transthoracic Echocardiography M-mode, complete 2D, complete spectral Doppler, and color Doppler *STUDY CONCLUSIONS* Summary: 1. Left ventricle: The cavity size was normal. Systolic function was moderately to severely reduced. The estimated ejection fraction was 30-35%. Diffuse hypokinesis. Findings consistent with diastolic dysfunction. There was no evidence of elevated ventricular filling pressure by Doppler parameters. 2. Right ventricle: The cavity size was normal. Wall thickness was normal. Systolic function was normal. 3. Atrial septum: No defect or patent foramen ovale was identified. 4. Pulmonary arteries: Systolic pressure could not be accurately estimated. 5. Inferior vena cava: The vessel was normal in size. The respirophasic diameter changes were in the normal range (greater than or equal to 50%), consistent with normal central venous pressure. *PATIENT PRESENTATION* Height: 172.7cm (68in ) S/D Pressure: 157 / 83 Weight: 90.3kg (198.6lb ) BSA: 2.11m^2 PERFORMING [facility] FILM REPLACEMENT ORDERER Savannah Granda Yelena A ORDERING Kogan, Yelena A REFERRING Kogan, Yelena A *PROCEDURE DATA* Procedure information: This study was interpreted by [facility]. Pertinent images and digital data are archived for permanent storage and are available for subsequent review. No prior study was available for comparison. Study status: Routine. Transthoracic echocardiography. M-mode, complete 2D, complete spectral Doppler, and color Doppler. A Transthoracic Echocardiogram was performed. Scanning was performed from the parasternal, apical, subcostal, and suprasternal notch acoustic windows. Images were obtained using an [employer] 2000 cardiac ultrasound machine. Image quality was adequate. Study completion: The patient tolerated the procedure well. History: PMH: CVA. *CARDIAC ANATOMY* Left ventricle: The cavity size was normal. Systolic function was moderately to severely reduced. The estimated ejection fraction was 30-35%. Diffuse hypokinesis. Findings consistent with diastolic dysfunction. There was no evidence of elevated ventricular filling pressure by Doppler parameters. Aortic valve: Doppler: There was no stenosis. There was no significant regurgitation. VTI ratio of LVOT to aortic valve: 0.83. Valve area (VTI): 2.1cm^2. Indexed valve area (VTI): 1cm^2/m^2. Peak velocity ratio of LVOT to aortic valve: 0.92. Valve area (Vmax): 2.3cm^2. Indexed valve area (Vmax): 1.1cm^2/m^2. Mean velocity ratio of LVOT to aortic valve: 0.8. Valve area (Vmean): 2cm^2. Indexed valve area (Vmean): 0.9cm^2/m^2. Mean gradient (S): 3.6mm Hg. Peak gradient (S): 6mm Hg. Aorta: Aortic root: The aortic root was normal in size. Mitral valve: Doppler: There was no evidence for stenosis. There was no significant regurgitation. Valve area by pressure half-time: 2.6cm^2. Indexed valve area by pressure half-time: 1.2cm^2/m^2. Left atrium: Poorly visualized. The atrium was normal in size. Atrial septum: No defect or patent foramen ovale was identified. Right ventricle: The cavity size was normal. Wall thickness was normal. Systolic function was normal. Pulmonic valve: Doppler: There was no evidence for stenosis. There was no significant regurgitation. Peak gradient (S): 3.2mm Hg. Tricuspid valve: Doppler: There was no significant regurgitation. Pulmonary artery: Poorly visualized. Systolic pressure could not be accurately estimated. Right atrium: The atrium was normal in size. Pericardium: There was no pericardial effusion. Systemic veins: Inferior vena cava: The vessel was normal in size. The respirophasic diameter changes were in the normal range (greater than or equal to 50%), consistent with normal central venous pressure. Measurements Left ventricle Value Reference LV ID, ED, PLAX 4.7 cm 3.5 - 6.0 LV ID, ES, PLAX (H) 4.3 cm 2.1 - 4.0 LV PW thickness, ED, PLAX 1.0 cm LV end-diastolic volume, 1-p A2C 80 ml LV ejection fraction, 1-p A2C 39 % LV end-diastolic volume, 1-p A4C 111 ml LV ejection fraction, 1-p A4C 39 % LV e', lateral 0.086 m/sec LV E/e', lateral 8 LV e', medial 0.104 m/sec LV E/e', medial 6 LV e', average 0.095 m/sec LV E/e', average 7 Ventricular septum Value Reference IVS thickness, ED, PLAX 0.9 cm LVOT Value Reference LVOT ID, A-P 1.8 cm LVOT area 2.5 cm^2 LVOT peak velocity, S 1.12 m/sec LVOT mean velocity, S 0.72 m/sec LVOT VTI, S 20.0 cm LVOT peak gradient, S 5 mm Hg LVOT mean gradient, S 2.4 mm Hg Stroke volume (SV), LVOT DP 50 ml Stroke index (SV/bsa), LVOT DP 24 ml/m^2 Aortic valve Value Reference Aortic valve peak velocity, S 1.2 m/sec Aortic valve mean velocity, S 0.9 m/sec Aortic valve VTI, S 24.0 cm Aortic mean gradient, S 3.6 mm Hg Aortic peak gradient, S 6 mm Hg VTI ratio, LVOT/AV 0.83 Aortic valve area, VTI 2.1 cm^2 Velocity ratio, peak, LVOT/AV 0.92 Aortic valve area, peak velocity 2.3 cm^2 Velocity ratio, mean, LVOT/AV 0.8 Aortic valve area, mean velocity 2 cm^2 Aortic valve area/bsa, mean velocity 0.9 cm^2/m^2 Aorta Value Reference Aortic root ID, ED 3.8 cm Left atrium Value Reference LA ID, A-P, ES 3.2 cm LA ID/bsa, A-P 1.5 cm/m^2 <=2.2 LA volume, ES, 2-p 44 ml LA volume/bsa, ES, 2-p 21 ml/m^2 LA/aortic root ratio 0.84 Mitral valve Value Reference Mitral E-wave peak velocity 0.65 m/sec Mitral A-wave peak velocity 0.88 m/sec Mitral deceleration time (H) 297 ms 150 - 230 Mitral pressure half-time 86 ms Mitral E/A ratio, peak 0.74 Mitral valve area, PHT, DP 2.6 cm^2 Right atrium Value Reference RA area, ES, A4C 14.2 cm^2 8.3 - 19.5 Pulmonic valve Value Reference Pulmonic peak gradient, S 3.2 mm Hg Legend: (L) and (H) frances values outside specified reference range. I have personally reviewed the images and have reviewed and edited the reported findings. Electronically signed by Lan Cao MD 11/09/2018 18:59
--- NOTE | 2018-11-09 09:45 | DI.MRI_ITS ---
EXAM: MR CERVICAL SPINE WO CLINICAL HISTORY: neck pain, radiculopathy. TECHNIQUE: Multiplanar multisequence MRI was performed. COMPARISON: No exams were available for comparison FINDINGS: No significant bony signal abnormality is seen in the cervical region. There is signal loss and loss of disc height in the intervertebral discs from C3-4 through C6-7 consistent with disc degeneration. No significant findings at C2-3 At C3-4 there is a large broad-based disc herniation with marked narrowing of the spinal canal in the AP diameter at this level and marked deformity of the spinal cord with abnormal cord signal present at this level. There is bilateral neural foraminal narrowing at C3-4 as well. At C4-5 there is a moderate-sized disc herniation with some narrowing of the AP diameter of the spina l canal. Minimal deformity of spinal cord anteriorly. No significant intra cord signal abnormality. Moderate bilateral neural foraminal narrowing at C4-5. At C5-6 there is slight central canal spinal stenosis secondary to a disc bulge. No disc herniation seen. Mild bilateral neural foraminal narrowing noted. At C6-7 there is a large broad-based disc herniation with marked deformity of the spinal cord but no gross intra cord signal abnormality. Bilateral neural foraminal narrowing noted. No significant findings at C7-T1. 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 There is marked narrowing of the sp inal cord particularly at C3-4 and there is intra cord signal abnormality also identified at this lev el. Please see above discussion for findings at individual levels.
[2018-11-09] MEDS: Omeprazole 20 MG CAPCR 40 MG PO (11:35)
[2018-11-09] MEDS: Cyanocobalamin 500 MCG TAB 1000 MCG PO (11:35)
[2018-11-09] MEDS: Cetirizine 10 MG TAB PO (11:36)
[2018-11-09] MEDS: Aspirin 325 MG TAB PO (11:36)
[2018-11-09] MEDS: Multivitamin TAB 1 TAB PO (11:36)
[2018-11-09] MEDS: Venlafaxine 37.5 MG CAPCR PO (11:36)
[2018-11-09] MEDS: Normal Saline Flush 10 ML SYR IVP ×2 (11:36→20:08)
[2018-11-09] MEDS: Ketorolac 15 MG/ML VIAL IVP ×2 (11:37→20:06)
--- NOTE | 2018-11-09 13:14 | IN_ITS ---
Date of service: 11/09/18 PT Notes Inpatient Physical Therapy Evaluation Date: 11/09/2018 Referring Doctor: Teresa Colon MD PT Orders: PT CONSULT: Limited ability Precautions: Fall. Standard. Activity as tolerated. Patient Profile/Admitting Diagnosis: Patient is a 72-year-old male with past medical history significant for ASCVD, diabetes mellitus, and hypertension who presented to the ED on 11/08/2018 with chief complaints of left arm weakness and numbness, left-sided headache, neck pain, eye pain, and left leg weakness/numbness. Patient is diagnosed with suspected CVA, exacerbation of chronic obstructive pulmonary disease, and diabetes mellitus. MRA of the head without contrast came back with impression of moderate stenosis of the right carotid siphon as well as mild stenosis of the M1 segment of the left middle cerebral artery. MRI of the head without contrast with impression of several small subcentimeter acute infarction of the right posterior frontal lobe. MRI of the cervical spine with impression of multilevel disc herniation most prominent at the level of C3-C4 and at C6-C7 as well and has marked narrowing of the spinal canal at the level of C3-C4. PMHX: Medical History (Updated 11/08/18 @ 18:44 by Teresa Colon MD) ASCVD (arteriosclerotic cardiovascular disease) (Chronic) 11/01 CABG x 3 at [facility] (after NSTEMI) 04/04 echo [facility] LVEF 60% Inferior [place] 1998 Chronic back pain (Acute) Chronic obstructive lung disease (Acute) quit smoking ; non-oxygen dependent Diabetes mellitus (Acute) non-insulin dependent Difficulty hearing (Acute) Gastroesophageal reflux disease (Inactive) Hyperlipidemia (Inactive) Hypertension (Chronic) Paroxysmal atrial fibrillation (Inactive 11/24/14) STEMI (ST elevation myocardial infarction) (Resolved ~11/14/15) Surgical History (Updated 11/08/18 @ 18:27 by Teresa Colon MD) S/P CABG x 3 (Acute) S/P coronary artery stent placement (Acute) S/P hernia repair (Chronic ~2012) incisional umbilical hernia repair by Dr Abiel Rivera, [facility] on 07/16/2016, right inguinal hernia repair with Dr Lan Mendoza, [facility] on 01/29/13 and on 08/13/13 also at [facility] by Dr Mendoza a repair of incisional hernia with hydrocele repair on the right. S/P repair of hydrocele (Acute) S/P tonsillectomy (Acute) VIDEO CAPSULE ENDOSCOPY (10/13/13) [facility] Social History/Home Situation: Patient lives in a trailer with his . They have a ramp to enter the home. Equipment Owned/DME: None Subjective: Patient consented to a PT consult. Patient reports diffuse pain throughout left neck, shoulder, and arm, and weakness in his left LE. He says he finds his presentation odd. He reports some dizziness upon sitting up and standing. Objective: General Observation: Patient is seen lying in bed with the , kids, and grandkids present. Patient appeared mildly anxious and required extended time to follow questions directed at him. Mr. Walker is found laying supine with HOB elevated. He has an IV in R UE, and bilateral antithromboemboli devices. Mental Status: Alert x oriented as to person, place, time. He required moderate to maximal verbal cueing for exectution of instructions for functional mobility assessment. Pain: Reports considerable pain on the left frontal parietal area, left, left side of the neck and the shoulder that are also tender to palpation ROM: Right Upper Extremity: Shoulder Flexion WFL. Shoulder abduction WFL. Elbow flexion WFL. Wrist flexion WFL. Functional opening and closing of hand WFL. Left Upper Extremity: Shoulder Flexion Markedly decreased. Shoulder abduction Markedly decreased. Elbow flexion WFL. Wrist flexion WFL. Functional opening and closing of hand WFL. Right Lower Extremity: Hip flexion WFL. Hip abduction WFL. Knee flexion WFL. Ankle dorsiflexion WFL. Ankle plantarflexion WFL. Left Lower Extremity: Hip flexion Markedly decreased. Hip abduction WFL. Knee extension Markedly decreased. Knee flexion WFL. Ankle dorsiflexion WFL. Ankle plantarflexion WFL. Strength: Right Upper Extremity: Shoulder flexors 5/5. Shoulder abductors 5/5. Elbow flexors 5/5. Elbow extensors 5/5. Manager Of Employee Relations strong. Left Upper Extremity: Shoulder flexors 3+/5. Shoulder abductors 3+/5. Elbow flexors 3+/5. Elbow extensors 3+/5. Manager Of Employee Relations WFL. Right Lower Extremity: Hip flexors 5/5. Hip abductors 5/5. Knee flexors 5/5. Knee extensors 5/5. Ankle dorsiflexors 5/5. Ankle plantarflexors 5/5. Left Lower Extremity:Hip flexors 3+/5. Hip abductors 4/5. Knee flexors 3+/5. Knee extensors 3+/5. Ankle dorsiflexors 5/5. Ankle plantarflexors 5/5. Sensation: Intact as to pain and pressure on R UE/LE extremities. Diminished on L UE/LE. Bed Mobility/Transfers: Rolling minimal assist Supine to sit minimal assist Sit to supine minimal assist Sit to stand minimal assist Stand to sit minimal assist Bed to chair moderate assist Chair to bed moderate assist Gait: Patient was able to tolerate in room ambulation from side of bed to his hospital room door about 20 feet using a front wheeled walker with minimal assist of student PT and IV pole management as well as wheelchair follow of PT. Patient exhibited reciprocal gait with shortened stride length and decreased hip and knee flexion on the left. He had decreased gait speed, and increased cervico thoracic kyphosis. Patient appeared confused and had a delayed reaction as to how he was feeling after set activity and required to be sat down onto the wheelchair as nurse stated that his heart rate went up to 109 bpm after that short walk. Balance: Static Sitting: Good Dynamic Sitting: Good Static Standing: Fair Dynamic Standing: Fair Special Tests: Mobility Limitations Standardized Measure [facility] 6 clicks Basic Mobility Inpatient Short Form: Raw Score: 16 CMS Score: 54% deficit Informed Consent/Education: Patient instructed in purpose of PT consult and plan of care. Assessment: Patient is a 72-year-old male with suspected cerebrovascular accident affecting the left MCA and with a possible infarction of the right posterior frontal lobe as seen on MRA of the brain. Patient also has multilevel disc herniations most prominent at C3-C4, and C6-C7 with a marked narrowing of spinal canal noted at C3-C4 level. His prognosis is fair. Lyme?s Disease. He presents with global weakness on the left side, pain in the left neck, shoulder, and arm and around his eye. He has some slight dysphasia that may have been present prior to his admission. He is an active individual who has the support of his family during his recovery. He is frustrated and concerned about his current presentation and is anxious to get better. His prognosis is fair. Patient presents with clinical signs and symptoms consistent with current/admitting diagnoses that have resulted to mobility limitations, gait instability, generalized weakness, and impairment of motor control as demonstrated by the following impairment level findings: 1. Decreased strength to L LE major muscle groups 2. Impaired sitting/standing balance 3. Impaired activity tolerance 4. Limitation of joint range of motion in left hip and knee Impairments are contributing to the following functional limitations: 1. Dependent bed mobility skills 2. Increased dependence with transfers 3. Inability to safely ambulate without assistive device and physical assistance 4. Increase completion time for mobility ADL performance 5. Increased fall risk 6. Inability to negotiate steps alone safely Patient is assessed as a [id number] moderate complexity based on the following: History: Patient with ASCVD, COPD, hypertension, and diabetes mellitus. Patient has a premorbid independent functional mobility level. He has good support from family and friends. Examination: Demonstrable impairment in strength, balance, and range of motion with underlying impairments and functional limitations as documented above Presentation: Evolving Decision Makin moderate moderate complexity Goals: Goals X1 week 1. Supine-Sit independent 2. Sit-Supine independent 3. Sit-Stand independent 4. Stand-Sit independent 5. Bed-Chair independent 6. Chair-Bed independent 7. Independent gait on level surface with use of least restrictive device for at least 300 feet without report of pain nor dyspnea 8. Independent stair negotiation while holding onto bilateral rails for at least 10 steps without report of pain nor dyspnea 9. Independent with home exercise program 10. Good static and dynamic standing balance/tolerance Plan of Care/Treatment Plan: 1-2x/day, 7 days/week x 1 week. Plan of care has been reviewed with the MANAGER ENGLISH providing the service under Physical Therapy direction. Initiate Physical Therapy intervention for strengthening, bed mobility, transfers, gait, stairs, balance training, use of assistive device. DISCHARGE RECOMMENDATIONS: Patient will benefit from jail facility placement in order to progress mobility level, strength, and balance in preparation for a safe discharge to home. He will benefit from the use of a front wheeled walker in order to maximize functional mobility and independence and reduce risk for falls at discharge destination. TREATMENT CODE/TIME: 43272 x 30 minutes, 11708 10 minutes, beginning at 10:58 AM. Thank you very much for this referral. [facility] With the supervision of: Ronda Ledesma PT, DPT, CLT [facility]
[2018-11-09] MEDS: MAGNESIUM SULFATE 2 GM/50 ML BAG IVPB (14:28)
--- NOTE | 2018-11-09 15:16 | CHAPLAIN ---
I ran into Ramses's in the lobby this morning and she told me about Ramses being admitted. She talked about what a wonderful Ramses is. In his room, Ramses had several family members visiting (children and grandchilden.) and ask that I visit another time when he had less company. He said she has been through several tests and will have possibly two more. He also said he hasn't slept well in a while because of the wraps massaging He appears to have a lot of family support.
--- NOTE | 2018-11-09 15:29 | PDOC.CMIN ---
- If Service Date Differs Date of service: 11/09/18 Time of Service: 15:29 Care Management Initial Assess REASON FOR HOSPITALIZATION:: Suspected CVA PAST MEDICAL HISTORY/PAST SURGICAL HISTORY:: Medical History. ASCVD (arteriosclerotic cardiovascular disease) (Chronic). [place] [facility] [place]/04 [place] [facility] LVEF 60%. Inferior [place] 1998. Chronic back pain (Acute). Chronic obstructive lung disease (Acute). quit smoking ; non-oxygen dependent. Diabetes mellitus (Acute). non-insulin dependent. Difficulty hearing (Acute). Gastroesophageal reflux disease (Inactive). Hyperlipidemia (Inactive). Hypertension (Chronic). Paroxysmal atrial fibrillation (Inactive 11/24/14). STEMI (ST elevation myocardial infarction) (Resolved ~11/14/15). Surgical History. S/P CABG x 3 (Acute). S/P coronary artery stent placement (Acute). S/P hernia repair (Chronic ~2012). incisional umbilical hernia repair by Dr Abiel Rivera, [facility] on 07/16/2016, right inguinal hernia repair with Dr Lan Mendoza, [facility] on 01/29/13 and on 08/13/13 also at [facility] by Dr Mendoza a repair of incisional hernia with hydrocele repair on the right. S/P repair of hydrocele (Acute). S/P tonsillectomy (Acute). VIDEO CAPSULE ENDOSCOPY (10/13/13[place] [facility] [place] PREVIOUS FUNCTIONAL STATUS/SOCIAL/FAMILY SUPPORTS:: Ramses lives at home in [place] with his , Coty. His son, Rajesh lives nearby and provides support. He has a large, supportive family in the area. Ramses is retired and independent at baseline. CURRENT FUNCTIONAL STATUS:: Ramses was sitting up in his bed during the conversation with CM. He was pleasant and engaged. He stated that his pain is under control and that he feels he is receiving good care. He reported that his plan is to return home when he is medically cleared. He asked for services since he feels that he will need more support when he returns home. CM will continue to follow and support patient with discharge planning. ADVANCE DIRECTIVES:: None on file. CM will provide a blank copy for Ramses to fill out, as requested. Has patient been provided with information about the portal?: Yes Did the patient sign up for the portal?: No (Not interent capable) CODE STATUS:: Full Code INSURANCE COVERAGE / FINANCIAL ISSUES:: MCR CURRENT HOME/COMMUNITY SERVICES/EQUIPMENT:: No current services or equipment. PRIMARY CARE PHYSICIAN:: Christel Godoy POTENTIAL DISCHARGE NEEDS:: Anticipate new orders for HH services. Follow up appointments. Evaluations for further needs. PATIENT/FAMILY EDUCATION NEEDS:: Review of community based supports, discharge plan, discussion of self care needs including Ask Me Three ANTICIPATED BARRIERS TO DISCHARGE:: None identified at this time. TRANSPORTATION:: Ramses will be driven home via private vehicle by his , Coty. PLAN:: Anticipate Ramses will return home with orders for new HH services when medically ready. His , Coty will drive him home via private vehicle. CM will continue to follow and support patient regarding discharge planning.
--- NOTE | 2018-11-09 15:53 | PT.INNT ---
Date of service: 11/09/18 Time of Service: 15:53 PT Notes 11/09/18 Patient refused afternoon PT session, stating that he is extremely fatigued. Will attempt to resume PT services tomorrow morning.
--- NOTE | 2018-11-09 16:06 | DI.VRAD_ITS ---
PROCEDURE INFORMATION: Exam: MR Head Without Contrast Exam date and time: 11/09/2018 12:46 PM Clinical history: 72 years old, male; Pain; Headache not specified; Patient HX: Suspected CVA TECHNIQUE: Imaging protocol: MR of the head without contrast. COMPARISON: MR ANGIO BRAIN WO 11/09/2018 7:45 AM FINDINGS: Brain: Minimal small vessel ischemic changes in the periventricular white matter. Several small subcentimeter acute infarcts right posterior frontal lobe. Ventricles: Normal. No ventriculomegaly. Bones/joints: Unremarkable. Soft tissues: Unremarkable. Sinuses: Mild paranasal sinus disease. Mastoid air cells: Normal as visualized. No mastoid effusion. Orbits: Unremarkable. IMPRESSION: Several small subcentimeter acute infarcts right posterior frontal lobe. Dictated and Authenticated by: Saman Mauro MD. Ordering:VLAD Moore MD
--- NOTE | 2018-11-09 16:10 | DI.VRAD_ITS ---
PROCEDURE INFORMATION: Exam: MR Angiogram Head Without Contrast, Arteries Exam date and time: 11/09/2018 12:51 PM Clinical history: 72 years old, male; Headache; Patient HX: Suspected CVA TECHNIQUE: Imaging protocol: MR angiogram head without contrast. Exam focused on the arteries. 3D rendering: MIP reconstructed images were created and reviewed. COMPARISON: CT BRAIN NECK CTA 11/08/2018 1:18 PM FINDINGS: Right internal carotid artery: Moderate stenosis right carotid siphon. Right anterior cerebral artery: Unremarkable. No occlusion or significant stenosis. No aneurysm. Right middle cerebral artery: Unremarkable. No occlusion or significant stenosis. No aneurysm. Right posterior cerebral artery: Unremarkable. No occlusion or significant stenosis. No aneurysm. Right vertebral artery: Unremarkable. No occlusion or significant stenosis. No aneurysm. Left internal carotid artery: Unremarkable. Intracranial segment is patent with no significant stenosis. No aneurysm. Left anterior cerebral artery: Unremarkable. No occlusion or significant stenosis. No aneurysm. Left middle cerebral artery: Mild stenosis M1 segment left MCA. Left posterior cerebral artery: Unremarkable. No occlusion or significant stenosis. No aneurysm. Left vertebral artery: Unremarkable. No occlusion or significant stenosis. No aneurysm. Basilar artery: Unremarkable. No occlusion or significant stenosis. No aneurysm. IMPRESSION: 1. Moderate stenosis right carotid siphon. 2. Mild stenosis M1 segment left MCA. Dictated and Authenticated by: Saman Mauro MD. Ordering:VLAD Moore MD
--- NOTE | 2018-11-09 17:42 | NCONE_ITS ---
Date of service: 11/09/18 Time of Service: 17:42 Assessment and Plan Assessment and plan (1) Acute right arterial ischemic stroke, middle cerebral artery (MCA): Status: Acute (2) Left hemiparesis: Status: Acute (3) Carotid stenosis: Status: Acute (4) Cervical stenosis of spinal canal: Status: Acute Assessment and plan: Mr. Walker is a 72 year-old, right-handed man who was admitted with the following: #1. Acute left arm and leg weakness and numbness secondary to small right posterior frontal cortical ischemic stroke. His exam is complicated by give way weakness and functional overlay. The most likely etiology of his infarct is due to right carotid stenosis. He has a history of paroxysmal afib, and while he should be on anticoagulation in the long run ideally for stroke prevention, I don't think that afib caused his current stroke. I recommend consultation with vascular surgery regarding treatment plan and either adding Plavix vs heparin/anticoagulation to his aspirin regimen per their recommendations. Continue simvastatin and permissive hypertension. Agree with PT/OT. #2. Severe cervical stenosis. This appears to be an asymptomatic finding, shantel clarke at one point he was noting left radicular pain. I discussed this finding with him. We discussed cervical precautions. He will need an outpatient neurosurgical evaluation though I recommend avoiding elective surgeries until at least 3month after ischemic stroke. I will continue to follow along. History of Present Illness History of Present Illness Chief Complaint: left hemiparesis Narrative: Handedness: right. HPI: Mr. Walker is a 72 year-old man with a past medical history of CAD s/p TX and CABG, paroxysmal atrial fibrillation not on anticoagulation (he says coumadin is rat poison), diabetes, hypertension, hyperlipidemia, depression, COPD, and chronic hyponatremia. On 11/07/18 at around 1830, he noted acute onset left arm weakness and numbness. He thought he had pinched a nerve in his neck, though he had no neck pain. He went to bed. The next morning he woke with continued left arm symptoms with new left leg weakness and heaviness with a left-sided headache and left neck pain. The left headache starts left frontally and radiates occipitally and into the left neck. He has been headache free since lunch time today which he a ttributes to medications (APAP). He still has some residual neck pain. He had previously noted pain radiating into his left arm, but denies that at this time. He has no prior history of neck pain. He denies any recent traumas, falls, etc. No recent neck injuries. He had 2 episodes of brief imbalance vs dizziness in the last 1 month which he attributes to water/wax in his ear. He denies any other history of imbalance. He has no numbness or tingling in his feet. He denies constipation or bladder habit changes. He was admitted for a suspected stroke. He was continued on aspirin and s imvastatin. He has undergone the following work-up: Work-up: -CT head: no acute I reviewed these images personally. -MRI brain w/o: small area of punctate acute/subacute ischemia in the high right posterior frontal cortex. I reviewed these images personally. -MRA head: limited by motion artifact. Absent right A1. Diffuse atherosclerosis. I reviewed these images personally. -CTA head and neck: moderate-severe R (rads measured 65%, but I thought more stenosed) and moderate L ICA stenosis; also bilateral L>R mild supraclinoid ICA stensois. I reviewed these images personally. -TTE: report pending -Tele: SR with occasional 1st degree HB -Labs: A1c 7.4, LDL 74 -MRI c-spine: severe cervical stenosis at C3-4 and C6-7 > C4-5; no cord signal changes in my opinion but rads thought there could be at C3-4. There is bilateral NF narrowing bilaterally at all levels and more severe at the previously mentioned levels. I reviewed these images personally. Review of Systems Review of Systems ROS Unobtainable: All systems reviewed & are unremarkable except as noted in HPI and below [facility] Medical History ASCVD (arteriosclerotic cardiovascular disease) (Chronic) 11/01 CABG x 3 at [facility] [place] (after NSTEMI) 04/04 echo [facility] LVEF 60% Inferior [place] 1998 Chronic back pain (Acute) Chronic obstructive lung disease (Acute) quit smoking ; non-oxygen dependent Diabetes mellitus (Acute) non-insulin dependent Difficulty hearing (Acute) Gastroesophageal reflux disease (Inactive) Hyperlipidemia (Inactive) Hypertension (Chronic) Paroxysmal atrial fibrillation (Inactive 11/24/14) STEMI (ST elevation myocardial infarction) (Resolved ~11/14/15) Surgical History S/P CABG x 3 (Acute) S/P coronary artery stent placement (Acute) S/P hernia repair (Chronic ~2012) incisional umbilical hernia repair by Dr Abiel Rivera, [facility] on 07/16/2016, right inguinal hernia repair with Dr Lan Mendoza, [facility] on 01/29/13 and on 08/13/13 also at [facility] by Dr Mendoza a repair of incisional hernia with hydrocele repair on the right. S/P repair of hydrocele (Acute) S/P tonsillectomy (Acute) VIDEO CAPSULE ENDOSCOPY (10/13/13) [facility] [place] Family History Mother Essential hypertension Heart disease Hyperlipidemia Father Heart disease Sister Essential hypertension Hyperlipidemia Brother , Farming accident No problems noted. Brother Stroke Brother Essential hypertension Heart disease Hyperlipidemia Brother Essential hypertension Hyperlipidemia Brother Heart disease bypass surgeries Grandfather Heart disease Grandfather No problems noted. Grandmother Personal history of malignant neoplasm Lung Heart disease Grandmother No problems noted. Social History Smoking/Tobacco Use Status: Former Tobacco Use Quit Date: 02/17/67 Tobacco: How many years used: 7 Alcohol Intake: former Details: history of alcohol abuse Drug use: Never Substance use type: does not use Do you feel safe at home: Yes Do you feel safe in your relationship?: Yes Visit Medication and Allergies Active Medications Generic Name Dose Route Start Last Admin Trade Name Freq PRN Reason Stop Dose Admin Acetaminophen 0 mg 11/08/18 16:44 Tylenol PO Q4H PRN PRN Al Hydrox/Mg Hydrox/Simethicone 30 ml 11/08/18 16:44 Mylanta Liquid PO Q2H PRN PRN Albuterol Sulfate 2 puff 11/09/18 07:14 Ventolin Hfa IH Q4H PRN PRN Aspirin 325 mg 11/09/18 08:30 11/09/18 11:36 PO 325 mg DAILY JAMSHID Administration Cetirizine HCl 10 mg 11/09/18 08:30 11/09/18 11:36 Zyrtec PO 10 mg DAILY JAMSHID Administration Cyanocobalamin 1,000 mcg 11/09/18 08:30 11/09/18 11:35 Vitamin B-12 PO 1,000 mcg DAILY [facility] Administration Dextrose 0 gm 11/08/18 16:52 Insta-Glucose PO DIRECTED PRN Dextrose/Water 0 gm 11/08/18 16:52 IVP DIRECTED PRN Dimethicone/Zinc Oxide 0 gm 11/08/18 16:44 Renata Protect Cream TP PRN PRN Docusate Sodium 100 mg 11/08/18 16:44 Colace PO TID PRN PRN Ezetimibe 10 mg 11/09/18 22:00 Zetia PO DAILY@2200 [facility] Fluticasone Propionate 0 gm 11/09/18 07:14 Flonase NS DAILY PRN PRN Sodium Chloride 1,000 mls @ 125 mls/hr 11/08/18 16:45 11/09/18 13:59 Saline 1000ml Bag IV 125 mls/hr INFUSION [facility] Administration IV Miscellaneous Supplies 1 each 11/08/18 12:15 IV DIRECTED [facility] Insulin Aspart 0 units 11/08/18 22:00 11/09/18 17:02 Novolog Flexpen SC Not Given AC & HS [facility] Protocol Iohexol 100 ml 11/08/18 13:15 11/08/18 13:16 Omnipaque 350 IV 12/08/18 23:59 85 ml DIRECTED [facility] Administration Ketorolac Tromethamine 15 mg 11/08/18 18:22 11/09/18 11:37 Toradol Injection IVP 11/13/18 18:21 15 mg Q6H PRN PRN Administration Magnesium Hydroxide 30 ml 11/08/18 16:44 Milk Of Magnesia PO DAILY PRN PRN Multivitamins 1 tab 11/09/18 08:30 11/09/18 11:36 PO 1 tab DAILY [facility] Administration Nitroglycerin 0.4 mg 11/09/18 07:17 Nitrostat SL Q5 MIN PRN X3 PRN Omeprazole 40 mg 11/09/18 07:30 11/09/18 11:35 Prilosec PO 40 mg DAILY@0730 [facility] Administration Simvastatin 40 mg 11/08/18 22:00 11/08/18 21:28 Zocor PO 40 mg HS JAMSHID Administration Sodium Chloride 0 ml 11/08/18 12:10 11/09/18 11:36 Saline Flush 10 Ml Syringe IVP 20 ml PRN PRN Administration Tiotropium [place]/Olodaterol 2 puff 11/09/18 08:30 11/09/18 12:10 Stiolto Respimat IH Not Given DAILY JAMSHID Venlafaxine HCl 37.5 mg 11/09/18 08:30 11/09/18 11:36 Effexor Xr PO 37.5 mg DAILY JAMSHID Administration Allergies celecoxib Allergy (Severe, Verified 11/08/18 12:09) SWELLING rosuvastatin calcium [From Crestor] Adverse Reaction (Severe, Verified 11/08/18 12:09) DIARRHEA atorvastatin Adverse Reaction (Intermediate, Verified 11/08/18 12:09) myalgia codeine phosphate [From Robitussin A-C] Adverse Reaction (Unknown, Verified 11/08/18 12:09) unknown Exam Narrative Exam Narrative: Physical Exam: Gen: Patient of apparent stated age, NAD Head and face: no facial or cranial abnormalities Neck: Supple, no meningismus, no occipital tenderness CV: RRR, no murmur Resp: CTA B/L Abd: soft, nontender, nondistended Ext: No edema. No clubbing or cyanosis. No bony deformity. Neuro Exam: Language: fluency, naming, repetition, and comprehension intact; Mental Status: AAOx3, current events intact, fund of knowledge intact; Speech: no dysarthria Cranial nerves: Funduscopy: not performed CN II: visual oquendo intact CN III, IV, : extraocular movements intact, no nystagmus, pupils symmetric and reactive to light CN V: face sensation reduced to LT left V1 and V3 and PP in L V1-V3; split vibration across the forehead; CN VII: no facial asymmetry noted CN VIII: hearing intact bilaterally CN IX, X: palate rises symmetrically CN XI: trapezius/SCM 5/5 bilaterally CN XII: protrudes tongue symmetrically Sensory: intact to joint position in all extremities; reduced LT, PP, and vibration in left hemibody; Motor: bulk and tone intact. Fine motor movements reduced on the left with a left pronator drift. Strength 5/5 throughout the right hemibody. 4-/5 in left hemibody; testing hampered by variability and giveway weakness. Not due to pain. Reflexes: 2+ at the R biceps, triceps, brachioradialis, and bilateral patella; hyporelfexic in the LUE and absent achilles tendons bilaterally; +Babinski bilaterally; neg Manzanares/Tromner; no clonus; Coordination: no ataxia Gait: deferred Results Last Vital Signs Temp 36.5 C 11/09/18 11:02 Pulse 86 11/09/18 15:26 Resp 16 11/09/18 11:02 BP 188/105 H 11/09/18 11:02 Pulse Ox 97 11/09/18 11:02 Labs Result diagrams: 11/09/18 06:50 11/09/18 06:50 Labs: Laboratory Results - last 24 hr 11/09/18 11/09/18 11/09/18 06:50 06:50 06:50 WBC 4.65 RBC 3.88 L Hgb 11.7 L Hct 35.0 L MCV 90.2 MCH 30.2 MCHC 33.4 RDW 12.9 Plt Count 305 MPV 9.3 Immature Gran % 0.2 Neutrophils % 48.4 Lymphocytes % 32.3 Monocytes % 9.2 Eosinophils % 8.8 Basophils % 1.1 Absolute Neutrophils 2.25 Absolute Lymphocytes 1.50 Absolute Monocytes 0.43 Absolute Eosinophils 0.41 Absolute Basophils 0.05 Sodium 136 Potassium 4.2 Chloride 101 Carbon Dioxide 23.8 Anion Gap 11.2 H BUN 13 D Creatinine 0.85 Estimated GFR/1.73 m2 >= 60.00 Glucose 150 H Hemoglobin A1c 7.4 H Calcium 8.4 L Magnesium 1.7 L Triglycerides 58 Total Cholesterol 126 LDL Cholesterol, Calc 74 HDL Cholesterol 41 Vitamin B12 499 TSH 2.68
--- NOTE | 2018-11-09 18:24 | PGE_ITS ---
Date of Service Date of service: 11/09/18 Time of Service: 18:25 Assessment and Plan Assessment and plan (1) CVA (cerebral vascular accident): Status: Acute Assessment and plan: With evidence of R carotid stenosis. Discussed with Dr Weber - the patient needs a vascular consult, which I have attempted to obtain via [facility] [place] - will continue to await recommendations. Anticoagulation vs dual antiplatelet therapy need to be considered. May require endarterectomy. (2) Cervical herniated disc: Status: Acute Assessment and plan: Likely the cause of neck and shoulder pain. Will need to follow up with neurosurgery as outpatient as may qualify for nonurgent surgery also. (3) Chronic obstructive lung disease: Status: Acute Assessment and plan: at baseline. Continue home therapy (4) Diabetes mellitus: Status: Acute Assessment and plan: Hold metformin. Cover with SSI. (5) ASCVD (arteriosclerotic cardiovascular disease): Status: Chronic Assessment and plan: stable. Resume beta blockers. (6) Paroxysmal atrial fibrillation: Status: Chronic Assessment and plan: Presently in NSR. Cardioembolic etiology is less likely than thromboembolic, per neurology. (7) DVT prophylaxis: Status: Acute Assessment and plan: TEDs + SCD's. Chemical DVT ppx may be contraindicated in setting of acute CVA due to a risk of hemorrhagic conversion; however, may require therapeutic anticoagulation, depending on vascular surgery recommendations. (8) Discharge planning issues: Status: Acute Assessment and plan: Full code Subjective Subjective Interval history since last seen: Mr Walker states that he is doing a little bit better, but slept poorly - primarily, because the IVF had him going to urinate all night. He denies dizziness, states his headache is better, continues to report L neck/shoulder/anterior chest pain, denies shortness of breath/nausea. He does not seem to be bothered by the bright lights in the room today. Denies difficulty swallowing today. Still states has weakness in LUE/LLE. Per family, his speech is better today. Exam Narrative Exam Narrative: General: Very pleasant, mildly anxious-appearing elderly male, in a jovial mood, eating dinner, A&Ox3, fluent speech Neurological: A&OX3, I do not see L facial droop today. I think the strength in his LUE has slightly improved (3/5). He is minimally able to move his LLE today (2/5). HEENT: EOMI, MMM Cardiovascular: RRR, + quiet GENEVA Lungs: CTAB Gastrointestinal: abdomen is soft, nontender, nondistended Extremities: no e/c/c BLE's Objective Objective Clinical Data: Abnormal lab results 11/09/18 11/09/18 11/09/18 Range/Units 06:50 06:50 06:50 RBC 3.88 L (4.50-6.00) m/cumm Hgb 11.7 L (13.5-17.5) g/dL Hct 35.0 L (40.0-50.0) % Anion Gap 11.2 H (3-11) mmol/L Glucose 150 H (70-100) mg/dL Hemoglobin A1c 7.4 H (4.5-6.2) % Calcium 8.4 L (8.5-10.1) mg/dL Magnesium 1.7 L (1.8-2.4) mg/dL Vital Signs Temperature 36.9 C 11/09/18 14:03 Temperature Source Tympanic 11/09/18 14:03 Pulse 86 11/09/18 15:26 Pulse Rhythm Regular 11/09/18 04:15 Respiratory Rate 18 11/09/18 14:03 Respiratory Effort Non-Labored 11/09/18 04:15 Respiratory Depth Normal 11/09/18 04:15 Respiratory Pattern Normal 11/09/18 04:15 Blood Pressure 146/70 H 11/09/18 14:03 Blood Pressure Position Supine 11/08/18 12:04 Pulse Oximetry 96 11/09/18 14:03 Oxygen Delivery Method Room Air 11/09/18 14:03 Oxygen Flow Rate 0 11/09/18 14:03 Pain Level 8 11/09/18 12:11 Intake & Output 11/08/18 11/09/18 11/09/18 23:59 11:59 23:59 Intake Total 360 / 360 1999 / 0 490 / 2490 Output Total 950 / 950 1300 / 1500 200 / 1500 Balance -590 / -590 700 / 990 290 / 990 Weight 90.3 kg 87.9 kg Intake: IV 1999 Oral 360 / 360 490 / 490 Output: Urine 950 / 950 1300 / 1500 200 / 1500 Other: Urine Color Light Felipa Yellow Yellow Urine Appearance Clear Clear Clear Urine Odor Normal Voiding Methods Urinal Urinal Urinal Laboratory Results WBC 4.65 k/cumm (4.4-10.8) 11/09/18 06:50 RBC 3.88 m/cumm (4.50-6.00) L 11/09/18 06:50 Hgb 11.7 g/dL (13.5-17.5) L 11/09/18 06:50 Hct 35.0 % (40.0-50.0) L 11/09/18 06:50 MCV 90.2 fL (80-95) 11/09/18 06:50 MCH 30.2 pg (27.0-33.0) 11/09/18 06:50 MCHC 33.4 g/dL (32.0-36.0) 11/09/18 06:50 RDW 12.9 % (11.8-14.1) 11/09/18 06:50 Plt Count 305 x1000/uL (130-400) 11/09/18 06:50 MPV 9.3 fL (8.0-11.0) 11/09/18 06:50 Immature Gran % 0.2 11/09/18 06:50 Neutrophils % 48.4 11/09/18 06:50 Lymphocytes % 32.3 11/09/18 06:50 Monocytes % 9.2 11/09/18 06:50 Eosinophils % 8.8 11/09/18 06:50 Basophils % 1.1 11/09/18 06:50 Absolute Neutrophils 2.25 k/cumm (1.2-6.7) 11/09/18 06:50 Absolute Lymphocytes 1.50 k/cumm (1.2-3.4) 11/09/18 06:50 Absolute Monocytes 0.43 k/cumm (0.11-0.7) 11/09/18 06:50 Absolute Eosinophils 0.41 k/cumm (0.0-0.7) 11/09/18 06:50 Absolute Basophils 0.05 k/cumm (0.0-0.2) 11/09/18 06:50 PT 9.9 sec (9.3-11.0) 11/08/18 12:12 INR 1.0 (0.9-1.1) 11/08/18 12:12 APTT 24.2 sec (21.0-31.4) 11/08/18 12:12 Sodium 136 mmol/L (136-145) 11/09/18 06:50 Potassium 4.2 mmol/L (3.5-5.1) 11/09/18 06:50 Chloride 101 mmol/L (98-107) 11/09/18 06:50 Carbon Dioxide 23.8 mmol/L (21.0-32.0) 11/09/18 06:50 Anion Gap 11.2 mmol/L (3-11) H 11/09/18 06:50 BUN 13 mg/dL (7-18) D 11/09/18 06:50 Creatinine 0.85 mg/dL (0.70-1.30) 11/09/18 06:50 Estimated GFR/1.73 m2 >= 60.00 (mL/min/1.73m2) 11/09/18 06:50 Glucose 150 mg/dL (70-100) H 11/09/18 06:50 Hemoglobin A1c 7.4 % (4.5-6.2) H 11/09/18 06:50 Calcium 8.4 mg/dL (8.5-10.1) L 11/09/18 06:50 Magnesium 1.7 mg/dL (1.8-2.4) L 11/09/18 06:50 Total Bilirubin 0.5 mg/dL (0.2-1.0) 11/08/18 12:12 AST 24 U/L (15-37) 11/08/18 12:12 ALT 26 U/L (16-63) 11/08/18 12:12 Alkaline Phosphatase 71 U/L (46-116) 11/08/18 12:12 Troponin I < 0.05 ng/mL (0.00-0.06) 11/08/18 14:58 Total Protein 7.1 g/dL (6.4-8.2) 11/08/18 12:12 Albumin 3.9 g/dL (3.4-5.0) 11/08/18 12:12 Triglycerides 58 mg/dL (30-150) 11/09/18 06:50 Total Cholesterol 126 mg/dL (50-200) 11/09/18 06:50 LDL Cholesterol, Calc 74 mg/dL 11/09/18 06:50 HDL Cholesterol 41 mg/dL (40-60) 11/09/18 06:50 Vitamin B12 499 pg/mL (193-986) 11/09/18 06:50 TSH 2.68 uIU/mL (0.36-3.74) 11/09/18 06:50 Urine Color Yellow (Yellow) 11/08/18 15:15 Urine Clarity Clear (Clear) 11/08/18 15:15 Urine pH 5.5 (5-8) 11/08/18 15:15 Ur Specific [place] 1.010 (1.005-1.025) 11/08/18 15:15 Urine Protein Negative mg/dL (Negative) 11/08/18 15:15 Urine Ketones Negative mg/dL (Negative) 11/08/18 15:15 Urine Blood Negative (Negative) 11/08/18 15:15 Urine Nitrite Negative (Negative) 11/08/18 15:15 Urine Bilirubin Negative (Negative) 11/08/18 15:15 Urine Urobilinogen 0.2 EU/dL (Up TO 0.2) 11/08/18 15:15 Ur Leukocyte Esterase Negative (Negative) 11/08/18 15:15 Urine Glucose Negative mg/dL (Negative) 11/08/18 15:15 MRI brain: mild cerebral atrophy and microvascular ischemic changes. Question focal acute or subacute infarcts in watershed region of high right parietal lobe. MRA brain: Examination limited by artifact. No gross occlusion or aneurysm. Chris nosis not excluded on the basis of this examination. Additional evaluation with CT angiography is suggested if clinically indicated MRI c-spine: Multilevel disc herniations, most prominent at C3-4 and at C6-7. There is marked narrowing of the spinal cord particularly at C3-4 and there is intra cord signal abnormality also identified at this level. Please see above discussion for findings at individual levels.
[2018-11-09] MEDS: Ezetimibe 10 MG TAB PO (21:51)
[2018-11-09] MEDS: Simvastatin 40 MG TAB PO (21:52)
[2018-11-10] VITALS (8 sets, daily range): BP systolic 155–168; BP diastolic 85–88; PULSE 73–80; RESP 16–19; TEMP 36.3–37.3; O2SAT 92–97
[2018-11-10] MEDS: Cetirizine 10 MG TAB PO (08:07)
[2018-11-10] MEDS: Multivitamin TAB 1 TAB PO (08:08)
[2018-11-10] MEDS: Omeprazole 20 MG CAPCR 40 MG PO (08:08)
[2018-11-10] MEDS: Cyanocobalamin 500 MCG TAB 1000 MCG PO (08:08)
[2018-11-10] MEDS: Aspirin 325 MG TAB PO (08:08)
[2018-11-10] MEDS: Venlafaxine 37.5 MG CAPCR PO (08:08)
--- NOTE | 2018-11-10 08:15 | W.PM.PROGNOT ---
Date of Service Date of service: 11/10/18 Time of Service: 08:15 Assessment and Plan Assessment and plan (1) Acute right arterial ischemic stroke, middle cerebral artery (MCA): Status: Acute (2) Left hemiparesis: Status: Acute (3) Carotid stenosis: Status: Acute Qualifiers: Laterality: right Qualified Code(s): I65.21 - Occlusion and stenosis of right carotid artery (4) Cervical stenosis of spinal canal: Status: Acute Assessment and plan: Mr. Walker is a 72 year-old, right-handed man who was admitted with the following: #1. Acute left arm and leg weakness and numbness secondary to small right posterior frontal cortical ischemic stroke. He has had significant improvement overnight which is expected given very small area of infarction. The most likely etiology of his infarct is due to right carotid stenosis. He has a history of paroxysmal afib, and while he should be on anticoagulation in the long run ideally for stroke prevention, I don't think that afib caused his current stroke. We are still awaiting vascular surgery recommendations regarding treatment plan for his R ICA stenosis and either adding Plavix vs heparin/anticoagulation to his aspirin regimen pending their recommendations. Continue simvastatin and permissive hypertension. Continue PT/OT. #2. Severe cervical stenosis. This appears to be an asymptomatic finding, though at one point he was noting left radicular pain. We discussed cervical precautions and signs/symptoms of cord impingement at which time he should seek urgent evaluation. He will need an outpatient neurosurgical evaluation though I recommend avoiding elective surgeries until at least 3month after ischemic stroke. He should follow-up in the neurology clinic in 4-6 weeks. I will continue to follow along. Subjective Subjective Interval history since last seen: Stable overnight. Significantly improved strength this am. Neck and head pain improved. Sensation still decreased on left but also improved. No updates from Vascular as of yet. No afib on tele. I reviewed his images with him and his son this am. Exam Narrative Exam Narrative: Physical Exam: Constitutional: Patient of apparent stated age, well nourished, well developed, no acute distress Neuro: MS/Language/Speech: Alert, oriented, clear language (fluency and comprehension), no dysarthria Motor: Normal bulk and tone. 4++/5 strength in LLE with 5/5 strength LUE and right hemibody Sensation: mildly reduced to LT in left hemibody Coordination: no ataxia Gait: deferred Objective Objective Clinical Data: Abnormal lab results 11/09/18 11/09/18 Range/Units 06:50 06:50 Anion Gap 11.2 H (3-11) mmol/L Glucose 150 H (70-100) mg/dL Hemoglobin A1c 7.4 H (4.5-6.2) % Calcium 8.4 L (8.5-10.1) mg/dL Magnesium 1.7 L (1.8-2.4) mg/dL Vital Signs Temperature 36.3 C L 11/10/18 04:56 Temperature Source Tympanic 11/10/18 04:56 Pulse 77 11/10/18 04:56 Pulse Rhythm Regular 11/10/18 04:00 Respiratory Rate 16 11/10/18 04:56 Respiratory Effort Non-Labored 11/10/18 04:00 Respiratory Depth Normal 11/10/18 04:00 Respiratory Pattern Normal 11/10/18 04:00 Blood Pressure 167/88 H 11/10/18 04:56 Blood Pressure Position Supine 11/08/18 12:04 Pulse Oximetry 95 11/10/18 04:56 Oxygen Delivery Method Room Air 11/10/18 04:56 Oxygen Flow Rate 0 11/10/18 04:56 Pain Level 6 11/09/18 20:06 Intake & Output 11/09/18 11/09/18 11/10/18 11:59 23:59 11:59 Intake Total 1999 / 0 2490 / 4490 Output Total 1300 / 1999 700 / 2000 250 / 250 Balance 700 / 2490 1790 / 2490 -250 / -250 Weight 87.9 kg 87.9 kg Intake: IV 2000 / 4000 2000 / 4000 Oral 490 / 490 Output: Urine 1300 / 2000 700 / 2000 250 / 250 Other: Urine Color Yellow Light Felipa Yellow Urine Appearance Clear Clear Clear Urine Odor Normal Stool Size Moderate Stool Characteristics Formed Voiding Methods Urinal Toilet Urinal Laboratory Results WBC 4.65 k/cumm (4.4-10.8) 11/09/18 06:50 RBC 3.88 m/cumm (4.50-6.00) L 11/09/18 06:50 Hgb 11.7 g/dL (13.5-17.5) L 11/09/18 06:50 Hct 35.0 % (40.0-50.0) L 11/09/18 06:50 MCV 90.2 fL (80-95) 11/09/18 06:50 MCH 30.2 pg (27.0-33.0) 11/09/18 06:50 MCHC 33.4 g/dL (32.0-36.0) 11/09/18 06:50 RDW 12.9 % (11.8-14.1) 11/09/18 06:50 Plt Count 305 x1000/uL (130-400) 11/09/18 06:50 MPV 9.3 fL (8.0-11.0) 11/09/18 06:50 Immature Gran % 0.2 11/09/18 06:50 Neutrophils % 48.4 11/09/18 06:50 Lymphocytes % 32.3 11/09/18 06:50 Monocytes % 9.2 11/09/18 06:50 Eosinophils % 8.8 11/09/18 06:50 Basophils % 1.1 11/09/18 06:50 Absolute Neutrophils 2.25 k/cumm (1.2-6.7) 11/09/18 06:50 Absolute Lymphocytes 1.50 k/cumm (1.2-3.4) 11/09/18 06:50 Absolute Monocytes 0.43 k/cumm (0.11-0.7) 11/09/18 06:50 Absolute Eosinophils 0.41 k/cumm (0.0-0.7) 11/09/18 06:50 Absolute Basophils 0.05 k/cumm (0.0-0.2) 11/09/18 06:50 PT 9.9 sec (9.3-11.0) 11/08/18 12:12 INR 1.0 (0.9-1.1) 11/08/18 12:12 APTT 24.2 sec (21.0-31.4) 11/08/18 12:12 Sodium 136 mmol/L (136-145) 11/09/18 06:50 Potassium 4.2 mmol/L (3.5-5.1) 11/09/18 06:50 Chloride 101 mmol/L (98-107) 11/09/18 06:50 Carbon Dioxide 23.8 mmol/L (21.0-32.0) 11/09/18 06:50 Anion Gap 11.2 mmol/L (3-11) H 11/09/18 06:50 BUN 13 mg/dL (7-18) D 11/09/18 06:50 Creatinine 0.85 mg/dL (0.70-1.30) 11/09/18 06:50 Estimated GFR/1.73 m2 >= 60.00 (mL/min/1.73m2) 11/09/18 06:50 Glucose 150 mg/dL (70-100) H 11/09/18 06:50 Hemoglobin A1c 7.4 % (4.5-6.2) H 11/09/18 06:50 Calcium 8.4 mg/dL (8.5-10.1) L 11/09/18 06:50 Magnesium 1.7 mg/dL (1.8-2.4) L 11/09/18 06:50 Total Bilirubin 0.5 mg/dL (0.2-1.0) 11/08/18 12:12 AST 24 U/L (15-37) 11/08/18 12:12 ALT 26 U/L (16-63) 11/08/18 12:12 Alkaline Phosphatase 71 U/L (46-116) 11/08/18 12:12 Troponin I < 0.05 ng/mL (0.00-0.06) 11/08/18 14:58 Total Protein 7.1 g/dL (6.4-8.2) 11/08/18 12:12 Albumin 3.9 g/dL (3.4-5.0) 11/08/18 12:12 Triglycerides 58 mg/dL (30-150) 11/09/18 06:50 Total Cholesterol 126 mg/dL (50-200) 11/09/18 06:50 LDL Cholesterol, Calc 74 mg/dL 11/09/18 06:50 HDL Cholesterol 41 mg/dL (40-60) 11/09/18 06:50 Vitamin B12 499 pg/mL (193-986) 11/09/18 06:50 TSH 2.68 uIU/mL (0.36-3.74) 11/09/18 06:50 Urine Color Yellow (Yellow) 11/08/18 15:15 Urine Clarity Clear (Clear) 11/08/18 15:15 Urine pH 5.5 (5-8) 11/08/18 15:15 Ur Specific [place] 1.010 (1.005-1.025) 11/08/18 15:15 Urine Protein Negative mg/dL (Negative) 11/08/18 15:15 Urine Ketones Negative mg/dL (Negative) 11/08/18 15:15 Urine Blood Negative (Negative) 11/08/18 15:15 Urine Nitrite Negative (Negative) 11/08/18 15:15 Urine Bilirubin Negative (Negative) 11/08/18 15:15 Urine Urobilinogen 0.2 EU/dL (Up TO 0.2) 11/08/18 15:15 Ur Leukocyte Esterase Negative (Negative) 11/08/18 15:15 Urine Glucose Negative mg/dL (Negative) 11/08/18 15:15
[2018-11-10] MEDS: Normal Saline Flush 10 ML SYR IVP (08:57)
[2018-11-10] MEDS: Ketorolac 15 MG/ML VIAL IVP (08:57)
--- NOTE | 2018-11-10 11:10 | OTTR_ITS ---
Date of service: 11/10/18 Time of Service: 10:40 Occupational Therapy Notes Occupational Therapy Inpatient Treatment Note Date: 11/10/18 PRECAUTIONS: Fall, standard SUBJECTIVE: Pt was sitting in bed when OT arrived. He reports that he can move his (L) LE and UE today and demonstrates this with ideal ROM. He is happy with how he is feeling. He notes that he needs to go to [facility] for his artery in his neck. OBJECTIVE: PAIN:no c/o pain FUNCTIONAL MOBILITY Rolling L/R: (I) Supine-sit: (I) Sit-supine: (I) BATHING: Sitting in bed with max (A) set up Upper Body: (I) Lower Body: (I) with min vc DRESSING: Sitting on side of bed Upper Extremity: (I) don and doffing [facility] gown Lower Extremity: (I) don and doffing (B) slippers. PLAN: Pt is demonstrating a significant improvement in ADL (I) compared to yesterday. He is functioning with (B) hand and leg use and is demonstrating ROM WFL. His terra cotta mason strength in his (L) UE is 5/5 at this time. He is able to perform bed mobility (I). OT will monitor pts response to todays session and progress accordingly. TREATMENT CODES/TIME: [id number], 30 minutes (10:40) [facility]
[2018-11-10 12:21] LABS: Lyme Ab w Rflx to Lyme Confirm Negative
[2018-11-10 15:32] LABS: HCT 36.7 % (40.0-50.0); HGB 12.4 g/dL (13.5-17.5); Mean Corp. HGB Concentration 33.8 g/dL (32.0-36.0); Mean Corpuscular Hemoglobin 30.6 pg (27.0-33.0); Mean Corpuscular Volume 90.6 fL (80-95); Platelet Count 267 x1000/uL (130-400); RBC 4.05 m/cumm (4.50-6.00); RBC Distribution Width 12.8 % (11.8-14.1); White Blood Cell Count 5.67 k/cumm (4.4-10.8)
[2018-11-10 15:47] LABS: PTT Activated 25.3 sec (21.0-31.4)
--- NOTE | 2018-11-10 15:47 | CHAPLAIN ---
Ramses showed me how he can raise his left arm and leg now, after not being able to yesterday. He said he worked on it some last night, and also credits the improvement to prayer, as does his . Ramses does not belong to a adventism, because he can pray anywhere, he explained. Ramses said he is waiting to be transferred to [facility] [place]. He seems to be well supported by family.
--- NOTE | 2018-11-10 15:49 | PT.INTREAT ---
Date of service: 11/10/18 Time of Service: 15:51 PT Notes Inpatient Physical Therapy Treatment Note [facility] Date: 11/10/18 PRECAUTIONS: Fall SUBJECTIVE: Ramses reports that he is feeling much better today, he demonstrates that he is able to actively move his L UE and LE without assistance. He is excited about his progress and looks forward to continuing to work on progressing his mobility. OBJECTIVE: PAIN: No c/o pain BED MOBILITY/TRANSFERS Supine-sit: I Sit-supine: I Sit-stand: I Stand-sit: I GAIT Assistive Device: FWW; SPC Weight bearing: Full Assist: CGA/SBA with FWW; CGA with SPC Distance: 100' with FWW; 100' with SPC THEREX: Patient completed a LE strengthening program, in a standing position with B UE support, as per flow sheet. STAIRS: Up/down 3x4 and 2x6 using B rails and a step-over pattern with supervision ASSESSMENT: Patient tolerated session well without complaint. He was able to tolerate a progression in gait distance with SPC, requiring CGA for safety. He would benefit from continued gait and transfer training as well as strengthening for improved ability to perform daily functional exercises at a more independent level. PLAN: Continue with PT's POC TREATMENT CODE/TIME: 40 minutes; [id number] x2, [id number]
--- NOTE | 2018-11-10 16:53 | CMPROGNOTE_ITS ---
- If Service Date Differs Date of service: 11/10/18 Time of Service: 16:53 Care Management Progress Note S/O: Ramses was sitting up in his bed during the conversation with CM. He had many family members and friends present. He was pleasant and very happy with the progress he had made overnight. He reported that he slept better and that he was feeling better today. He showed CM that he could move his left arm up and down now, which he could not do yesterday. He reported that [place] [facility], and they are waiting for a bed at this time. He stated that he may go today or tomorrow. CM will continue to follow. A: Ramses is a 72 year old Male admitted for acute right arterial ischemic stroke on 11/08/18 P: Anticipate Ramses will [place] [facility] [place] bed is available, today or tomorrow. He will be transferred via ambulance when ready. Follow up with neuro and PCP. CM will follow.
[2018-11-10] MEDS: Acetaminophen 325 MG TAB PO (18:43)
--- NOTE | 2018-11-10 19:23 | PGE_ITS ---
Date of Service Date of service: 11/10/18 Time of Service: 13:30 Assessment and Plan Assessment and plan (1) CVA (cerebral vascular accident): Status: Acute Assessment and plan: With evidence of symptomatic R carotid stenosis. Symptoms currently resolved. On heparin gtt. A[place] [facility] [place] Accepting MD: Dr Cintron. (2) Cervical herniated disc: Status: Acute Assessment and plan: Likely the cause of neck and shoulder pain. Will need to follow up with neurosurgery as outpatient. (3) Chronic obstructive lung disease: Status: Acute Assessment and plan: at baseline. Continue home therapy (4) Diabetes mellitus: Status: Acute Assessment and plan: Hold metformin. Cover with SSI. (5) ASCVD (arteriosclerotic cardiovascular disease): Status: Chronic Assessment and plan: stable. Resume beta blockers. (6) Paroxysmal atrial fibrillation: Status: Chronic Assessment and plan: Presently in NSR. Cardioembolic etiology is less likely than thromboembolic, per neurology. (7) DVT prophylaxis: Status: Acute Assessment and plan: TEDs + SCD's. Chemical DVT ppx may be contraindicated in setting of acute CVA due to a risk of hemorrhagic conversion; however, may require therapeutic anticoagulation, depending on vascular surgery recommendations. (8) Discharge planning issues: Status: Acute Assessment and plan: Full code Subjective Subjective Interval history since last seen: Mr Walker says that since this morning he hasn't had the headache, has been able to move his L arm and leg and feels completely back to normal. Denies dizziness, chest pain, shortness of breath, nausea, vomiting. His case was discussed with Dr Cintron of vascular [place] [facility] who felt that the patient would benefit from a surgical procedure on his R carotid on this hospitalization due to his symptomatic carotid stenosis. Recommendations were made to put the patient on heparin gtt. Exam Narrative Exam Narrative: General: Very pleasant, mildly anxious-appearing elderly male, sitting up on the side of the bed, moving all extremities, delighted Neurological: A&OX3, no obvious focal deficits HEENT: EOMI, MMM Cardiovascular: RRR, + quiet GENEVA Lungs: CTAB Gastrointestinal: abdomen is soft, nontender, nondistended Extremities: no e/c/c BLE's Objective Objective Clinical Data: Abnormal lab results 11/10/18 Range/Units 15:18 RBC 4.05 L (4.50-6.00) m/cumm Hgb 12.4 L (13.5-17.5) g/dL Hct 36.7 L (40.0-50.0) % Vital Signs Temperature 37.3 C 11/10/18 16:08 Temperature Source Tympanic 11/10/18 16:08 Pulse 74 11/10/18 16:08 Pulse Rhythm Regular 11/10/18 16:40 Respiratory Rate 19 11/10/18 16:08 Respiratory Effort Non-Labored 11/10/18 16:40 Respiratory Depth Normal 11/10/18 16:40 Respiratory Pattern Normal 11/10/18 16:40 Blood Pressure 159/85 H 11/10/18 16:08 Blood Pressure Position Supine 11/08/18 12:04 Pulse Oximetry 96 11/10/18 16:08 Oxygen Delivery Method Room Air 11/10/18 16:08 Oxygen Flow Rate 0 11/10/18 16:08 Pain Level 6 11/10/18 18:43 Intake & Output 11/09/18 11/10/18 11/10/18 23:59 11:59 23:59 Intake Total 2490 / 4490 380 / 860 480 / 860 Output Total 700 / 2000 550 / 550 Balance 1790 / 2490 -170 / 310 480 / 310 Weight 87.9 kg 91.075 kg Intake: IV 2000 / 4000 20 / 20 Oral 490 / 490 360 / 840 480 / 840 Output: Urine 700 / 2000 550 / 550 Other: Urine Color Light Felipa Pale Yellow Urine Appearance Clear Clear Clear Urine Odor Normal Stool Size Moderate Moderate Stool Characteristics Formed Soft Voiding Methods Toilet Toilet Laboratory Results WBC 5.67 k/cumm (4.4-10.8) 11/10/18 15:18 RBC 4.05 m/cumm (4.50-6.00) L 11/10/18 15:18 Hgb 12.4 g/dL (13.5-17.5) L 11/10/18 15:18 Hct 36.7 % (40.0-50.0) L 11/10/18 15:18 MCV 90.6 fL (80-95) 11/10/18 15:18 MCH 30.6 pg (27.0-33.0) 11/10/18 15:18 MCHC 33.8 g/dL (32.0-36.0) 11/10/18 15:18 RDW 12.8 % (11.8-14.1) 11/10/18 15:18 Plt Count 267 x1000/uL (130-400) 11/10/18 15:18 MPV 9.0 fL (8.0-11.0) 11/10/18 15:18 Immature Gran % 0.2 11/09/18 06:50 Neutrophils % 48.4 11/09/18 06:50 Lymphocytes % 32.3 11/09/18 06:50 Monocytes % 9.2 11/09/18 06:50 Eosinophils % 8.8 11/09/18 06:50 Basophils % 1.1 11/09/18 06:50 Absolute Neutrophils 2.25 k/cumm (1.2-6.7) 11/09/18 06:50 Absolute Lymphocytes 1.50 k/cumm (1.2-3.4) 11/09/18 06:50 Absolute Monocytes 0.43 k/cumm (0.11-0.7) 11/09/18 06:50 Absolute Eosinophils 0.41 k/cumm (0.0-0.7) 11/09/18 06:50 Absolute Basophils 0.05 k/cumm (0.0-0.2) 11/09/18 06:50 PT 9.9 sec (9.3-11.0) 11/08/18 12:12 INR 1.0 (0.9-1.1) 11/08/18 12:12 APTT 25.3 sec (21.0-31.4) 11/10/18 15:18 Sodium 136 mmol/L (136-145) 11/09/18 06:50 Potassium 4.2 mmol/L (3.5-5.1) 11/09/18 06:50 Chloride 101 mmol/L (98-107) 11/09/18 06:50 Carbon Dioxide 23.8 mmol/L (21.0-32.0) 11/09/18 06:50 Anion Gap 11.2 mmol/L (3-11) H 11/09/18 06:50 BUN 13 mg/dL (7-18) D 11/09/18 06:50 Creatinine 0.85 mg/dL (0.70-1.30) 11/09/18 06:50 Estimated GFR/1.73 m2 >= 60.00 (mL/min/1.73m2) 11/09/18 06:50 Glucose 150 mg/dL (70-100) H 11/09/18 06:50 Hemoglobin A1c 7.4 % (4.5-6.2) H 11/09/18 06:50 Calcium 8.4 mg/dL (8.5-10.1) L 11/09/18 06:50 Magnesium 1.7 mg/dL (1.8-2.4) L 11/09/18 06:50 Total Bilirubin 0.5 mg/dL (0.2-1.0) 11/08/18 12:12 AST 24 U/L (15-37) 11/08/18 12:12 ALT 26 U/L (16-63) 11/08/18 12:12 Alkaline Phosphatase 71 U/L (46-116) 11/08/18 12:12 Troponin I < 0.05 ng/mL (0.00-0.06) 11/08/18 14:58 Total Protein 7.1 g/dL (6.4-8.2) 11/08/18 12:12 Albumin 3.9 g/dL (3.4-5.0) 11/08/18 12:12 Triglycerides 58 mg/dL (30-150) 11/09/18 06:50 Total Cholesterol 126 mg/dL (50-200) 11/09/18 06:50 LDL Cholesterol, Calc 74 mg/dL 11/09/18 06:50 HDL Cholesterol 41 mg/dL (40-60) 11/09/18 06:50 Vitamin B12 499 pg/mL (193-986) 11/09/18 06:50 TSH 2.68 uIU/mL (0.36-3.74) 11/09/18 06:50 Urine Color Yellow (Yellow) 11/08/18 15:15 Urine Clarity Clear (Clear) 11/08/18 15:15 Urine pH 5.5 (5-8) 11/08/18 15:15 Ur Specific [place] 1.010 (1.005-1.025) 11/08/18 15:15 Urine Protein Negative mg/dL (Negative) 11/08/18 15:15 Urine Ketones Negative mg/dL (Negative) 11/08/18 15:15 Urine Blood Negative (Negative) 11/08/18 15:15 Urine Nitrite Negative (Negative) 11/08/18 15:15 Urine Bilirubin Negative (Negative) 11/08/18 15:15 Urine Urobilinogen 0.2 EU/dL (Up TO 0.2) 11/08/18 15:15 Ur Leukocyte Esterase Negative (Negative) 11/08/18 15:15 Urine Glucose Negative mg/dL (Negative) 11/08/18 15:15 Lyme Disease Antibody Negative 11/08/18 12:12
[2018-11-10 21:17] LABS: Anaplasma phagocytophilum Negative (Negative); B. miyamotoi PCR Negative (Negative); Babesia divergens/MO-1 Negative (Negative); Babesia duncani Negative (Negative); Babesia microti Negative (Negative); Ehrlichia chaffeensis Negative (Negative); Ehrlichia ewingii/canis Negative (Negative); Ehrlichia muris eauclairensis Negative (Negative)
[2018-11-10] MEDS: Ezetimibe 10 MG TAB PO (21:25)
[2018-11-10] MEDS: Simvastatin 40 MG TAB PO (21:25)
[2018-11-10 23:34] LABS: PTT Activated 105.7 sec (21.0-31.4)
[2018-11-11] VITALS (10 sets, daily range): BP systolic 138–161; BP diastolic 82–96; PULSE 73–83; RESP 16–19; TEMP 36.5–37.3; O2SAT 95–97
[2018-11-11] MEDS: Acetaminophen 325 MG TAB PO (04:08)
[2018-11-11 05:41] LABS: Anion Gap 10.1 mmol/L (3-11); BUN 19 mg/dL (7-18); CO2 23.9 mmol/L (21.0-32.0); CREATININE 1.01 mg/dL (0.70-1.30); Calcium 8.7 mg/dL (8.5-10.1); Chloride 96 mmol/L (98-107); Glucose 156 mg/dL (70-100); Magnesium 1.8 mg/dL (1.8-2.4); Potassium 4.8 mmol/L (3.5-5.1); Sodium 130 mmol/L (136-145)
[2018-11-11 05:45] LABS: PTT Activated 75.1 sec (21.0-31.4)
[2018-11-11] MEDS: Ketorolac 15 MG/ML VIAL IVP ×3 (06:39→23:59)
[2018-11-11] MEDS: Normal Saline Flush 10 ML SYR IVP ×3 (06:40→23:59)
--- NOTE | 2018-11-11 08:06 | DI.CT_ITS ---
EXAM: CT HEAD WO CLINICAL HISTORY: headache, recent CVA, on heparin gtt. TECHNIQUE: A noncontrast enhanced examination was performed and is compared with the prior study of 11/08/2018. COMPARISON: CT HEAD WO from 11/08/2018 FINDINGS: There is no evidence of an intra or extra-axial hemorrhage. There are areas of diminished absorpti on in the periventricular parietal white matter consistent with small vessel disease. There is a sma ll region of questionable diminished absorption in the high right parietal cortex and the possibilit y of a small infarct could not be excluded. The ventricles are unremarkable. There is no skull frac ture. The paranasal sinuses appear intact. There is no mastoid effusion. IMPRESSION: No definite abnormality is demonstrated. The possibility of a very small region of high right pariet al infarction could not be totally excluded.
--- NOTE | 2018-11-11 09:18 | OT.INNT ---
Date of service: 11/11/18 Time of Service: 09:05 Occupational Therapy Notes 11/11/18 Per nursing, OT will hold on skilled OT services for today awaiting results from MRI as pt has increased head pain today. Rachell Clements OTR/[facility]
[2018-11-11] MEDS: Omeprazole 20 MG CAPCR 40 MG PO (10:20)
[2018-11-11] MEDS: Cetirizine 10 MG TAB PO (10:20)
[2018-11-11] MEDS: Aspirin 325 MG TAB PO (10:20)
[2018-11-11] MEDS: Venlafaxine 37.5 MG CAPCR PO (10:20)
[2018-11-11] MEDS: Multivitamin TAB 1 TAB PO (10:20)
[2018-11-11] MEDS: Cyanocobalamin 500 MCG TAB 1000 MCG PO (10:20)
--- NOTE | 2018-11-11 11:38 | PT.INNT ---
Date of service: 11/11/18 Time of Service: 11:38 PT Notes 11/11/18 Hold morning PT session, per nursing. Will attempt to resume PT services this afternoon, if appropriate.
--- NOTE | 2018-11-11 14:50 | CHAPLAIN ---
Ramses and his are praying that a bed opens up for him at [facility], so he can be transferred for there for surgery, he said. Ramses said he was told that currently [facility], [facility], as well as hospitals in [place] and [place] do not have beds available. Ramses credits prayer with his ability to regain strength in his left arm and leg. He has lots of support from his family. His is here often. Ramses doesn't belong to a olga community as he believes he can pray anywhere. I don't need to be in a jew to do that, he said.
--- NOTE | 2018-11-11 14:57 | PT.INNT ---
Date of service: 11/11/18 Time of Service: 14:57 PT Notes 11/11/18 Patient refused afternoon PT session. Will attempt to resume PT services tomorrow morning, if appropriate.
--- NOTE | 2018-11-11 15:07 | CMPROGNOTE_ITS ---
- If Service Date Differs Date of service: 11/11/18 Time of Service: 15:07 Care Management Progress Note S/O: Ramses was lying in bed surrounded by family and friends during the conversation with CM. He reported that he was feeling better than earlier in the morning when he had a very bad headache. He stated that his pain was under control now, and that they are still waiting for [facility] to have a bed in order to transfer him. He also reported that he does not want to go to a different facility, and that he is comfortable waiting for [facility]. CM will continue to follow. A: Ramses is a 72 year old Male admitted for acute right arterial ischemic stroke on 11/08/18 P: Anticipate Ramses will be transferred to [facility] for surgery when a bed is available, today or tomorrow. He will be transferred via ambulance when ready. Follow up with neuro and PCP. CM will follow.
[2018-11-11 15:12] LABS: PTT Activated 37.5 sec (21.0-31.4)
--- NOTE | 2018-11-11 20:02 | W.PM.PROGNOT ---
Date of Service Date of service: 11/11/18 Time of Service: 07:30 Assessment and Plan Assessment and plan (1) CVA (cerebral vascular accident): Status: Acute Assessment and plan: With evidence of symptomatic R carotid stenosis. Symptoms resolved. I doubt that the headache this morning was related to this, but it's not impossible. On heparin gtt. Awaiting transfer to [facility] for endarterectomy once there are beds. Accepting MD: Dr Cintron once there is a bed available. Will attempt calling [facility] daily. (2) Cervical herniated disc: Status: Acute Assessment and plan: Likely the cause of headache, neck and shoulder pain. Will need to follow up with neurosurgery as outpatient. (3) Chronic obstructive lung disease: Status: Acute Assessment and plan: at baseline. Continue home therapy (4) Diabetes mellitus: Status: Acute Assessment and plan: Hold metformin. Cover with SSI. (5) ASCVD (arteriosclerotic cardiovascular disease): Status: Chronic Assessment and plan: stable. Resume beta blockers. (6) Paroxysmal atrial fibrillation: Status: Chronic Assessment and plan: Presently in NSR. Cardioembolic etiology is less likely than thromboembolic, per neurology. (7) DVT prophylaxis: Status: Acute Assessment and plan: TEDs + SCD's. Chemical DVT ppx may be contraindicated in setting of acute CVA due to a risk of hemorrhagic conversion; however, may require therapeutic anticoagulation, depending on vascular surgery recommendations. (8) Discharge planning issues: Status: Acute Assessment and plan: Full code Awaiting bed availability at [facility] for carotid endarterectomy; refuses transfer to any other tertiary care facility. Subjective Subjective Interval history since last seen: The patient woke up this morning with a headache that he has stated was the worst he had ever had. It affected the right side of the head more than his left. His neck was also hurting. His strength in LUE/LLE was intact. No visual changes, but he did have photophobia. CT of the head was negative, and the headache did improve later on in the morning. [facility] does not have a bed for the patient - however, the patient refuses transfer anywhere else. He verbalizes he understands the risk of having another CVA while awaiting a procedure here. Exam Narrative Exam Narrative: General: Very pleasant, mildly anxious-appearing elderly male, initially seen laying flat in a dark room where he was trying to keep his eyes closed; on follow up visit, he looked intact, no photophobia, able to move all extremities Neurological: A&OX3, no obvious focal deficits HEENT: EOMI, MMM Cardiovascular: RRR, + quiet GENEVA Lungs: CTAB Gastrointestinal: abdomen is soft, nontender, nondistended Extremities: no e/c/c BLE's Objective Objective Clinical Data: Abnormal lab results 11/10/18 11/11/18 11/11/18 Range/Units 22:55 05:20 05:20 APTT 105.7 H* D 75.1 H D (21.0-31.4) sec Sodium 130 L (136-145) mmol/L Chloride 96 L (98-107) mmol/L BUN 19 H D (7-18) mg/dL Glucose 156 H (70-100) mg/dL 11/11/18 Range/Units 14:45 APTT 37.5 H D (21.0-31.4) sec Sodium (136-145) mmol/L Chloride (98-107) mmol/L BUN (7-18) mg/dL Glucose (70-100) mg/dL Vital Signs Temperature 37.0 C 11/11/18 16:10 Temperature Source Tympanic 11/11/18 16:10 Pulse 80 11/11/18 16:10 Pulse Rhythm Regular 11/11/18 15:13 Respiratory Rate 18 11/11/18 16:10 Respiratory Effort Non-Labored 11/11/18 15:13 Respiratory Depth Normal 11/11/18 15:13 Respiratory Pattern Normal 11/11/18 15:13 Blood Pressure 161/96 H 11/11/18 16:10 Blood Pressure Position Supine 11/08/18 12:04 Pulse Oximetry 95 11/11/18 16:10 Oxygen Delivery Method Room Air 11/11/18 16:10 Oxygen Flow Rate 0 11/11/18 16:10 Pain Level 6 11/11/18 17:01 Comment 11/11/18 11:20 Intake & Output 11/10/18 11/11/18 11/11/18 23:59 11:59 23:59 Intake Total 601.267 / 981.267 433.692 / 751.642 317.95 / 751.642 Output Total 200 / 750 1375 / 1700 325 / 1700 Balance 401.267 / 231.267 -941.308 / -948.358 -7.05 / -948.358 Weight 91.075 kg 83 kg Intake: IV 121.267 / 141.267 93.692 / 171.642 77.95 / 171.642 Oral 480 / 840 340 / 580 240 / 580 Output: Urine 200 / 750 1375 / 1700 325 / 1700 Other: Urine Color Yellow Yellow Yellow Urine Appearance Clear Clear Clear Urine Odor Normal Normal Comment Voids x2 in urinal. Stool Size Moderate Stool Characteristics Soft Formed Brown Voiding Methods Urinal Toilet Urinal Urinal Laboratory Results WBC 5.67 k/cumm (4.4-10.8) 11/10/18 15:18 RBC 4.05 m/cumm (4.50-6.00) L 11/10/18 15:18 Hgb 12.4 g/dL (13.5-17.5) L 11/10/18 15:18 Hct 36.7 % (40.0-50.0) L 11/10/18 15:18 MCV 90.6 fL (80-95) 11/10/18 15:18 MCH 30.6 pg (27.0-33.0) 11/10/18 15:18 MCHC 33.8 g/dL (32.0-36.0) 11/10/18 15:18 RDW 12.8 % (11.8-14.1) 11/10/18 15:18 Plt Count 267 x1000/uL (130-400) 11/10/18 15:18 MPV 9.0 fL (8.0-11.0) 11/10/18 15:18 Immature Gran % 0.2 11/09/18 06:50 Neutrophils % 48.4 11/09/18 06:50 Lymphocytes % 32.3 11/09/18 06:50 Monocytes % 9.2 11/09/18 06:50 Eosinophils % 8.8 11/09/18 06:50 Basophils % 1.1 11/09/18 06:50 Absolute Neutrophils 2.25 k/cumm (1.2-6.7) 11/09/18 06:50 Absolute Lymphocytes 1.50 k/cumm (1.2-3.4) 11/09/18 06:50 Absolute Monocytes 0.43 k/cumm (0.11-0.7) 11/09/18 06:50 Absolute Eosinophils 0.41 k/cumm (0.0-0.7) 11/09/18 06:50 Absolute Basophils 0.05 k/cumm (0.0-0.2) 11/09/18 06:50 PT 9.9 sec (9.3-11.0) 11/08/18 12:12 INR 1.0 (0.9-1.1) 11/08/18 12:12 APTT 37.5 sec (21.0-31.4) H D 11/11/18 14:45 Sodium 130 mmol/L (136-145) L 11/11/18 05:20 Potassium 4.8 mmol/L (3.5-5.1) 11/11/18 05:20 Chloride 96 mmol/L (98-107) L 11/11/18 05:20 Carbon Dioxide 23.9 mmol/L (21.0-32.0) 11/11/18 05:20 Anion Gap 10.1 mmol/L (3-11) 11/11/18 05:20 BUN 19 mg/dL (7-18) H D 11/11/18 05:20 Creatinine 1.01 mg/dL (0.70-1.30) 11/11/18 05:20 Estimated GFR/1.73 m2 >= 60.00 (mL/min/1.73m2) 11/11/18 05:20 Glucose 156 mg/dL (70-100) H 11/11/18 05:20 Hemoglobin A1c 7.4 % (4.5-6.2) H 11/09/18 06:50 Calcium 8.7 mg/dL (8.5-10.1) 11/11/18 05:20 Magnesium 1.8 mg/dL (1.8-2.4) 11/11/18 05:20 Total Bilirubin 0.5 mg/dL (0.2-1.0) 11/08/18 12:12 AST 24 U/L (15-37) 11/08/18 12:12 ALT 26 U/L (16-63) 11/08/18 12:12 Alkaline Phosphatase 71 U/L (46-116) 11/08/18 12:12 Troponin I < 0.05 ng/mL (0.00-0.06) 11/08/18 14:58 Total Protein 7.1 g/dL (6.4-8.2) 11/08/18 12:12 Albumin 3.9 g/dL (3.4-5.0) 11/08/18 12:12 Triglycerides 58 mg/dL (30-150) 11/09/18 06:50 Total Cholesterol 126 mg/dL (50-200) 11/09/18 06:50 LDL Cholesterol, Calc 74 mg/dL 11/09/18 06:50 HDL Cholesterol 41 mg/dL (40-60) 11/09/18 06:50 Vitamin B12 499 pg/mL (193-986) 11/09/18 06:50 TSH 2.68 uIU/mL (0.36-3.74) 11/09/18 06:50 Urine Color Yellow (Yellow) 11/08/18 15:15 Urine Clarity Clear (Clear) 11/08/18 15:15 Urine pH 5.5 (5-8) 11/08/18 15:15 Ur Specific [place] 1.010 (1.005-1.025) 11/08/18 15:15 Urine Protein Negative mg/dL (Negative) 11/08/18 15:15 Urine Ketones Negative mg/dL (Negative) 11/08/18 15:15 Urine Blood Negative (Negative) 11/08/18 15:15 Urine Nitrite Negative (Negative) 11/08/18 15:15 Urine Bilirubin Negative (Negative) 11/08/18 15:15 Urine Urobilinogen 0.2 EU/dL (Up TO 0.2) 11/08/18 15:15 Ur Leukocyte Esterase Negative (Negative) 11/08/18 15:15 Urine Glucose Negative mg/dL (Negative) 11/08/18 15:15 A.phagocytophil DNA PCR Negative (Negative) 11/08/18 12:12 B. divergens/MO-1 PCR Negative (Negative) 11/08/18 12:12 Babesia duncani (PCR) Negative (Negative) 11/08/18 12:12 Babesia microti DNA PCR Negative (Negative) 11/08/18 12:12 Borrelia (PCR) Negative (Negative) 11/08/18 12:12 Lyme Disease Antibody Negative 11/08/18 12:12 E.chaffeensis DNA (PCR) Negative (Negative) 11/08/18 12:12 E.ewingii/canis DNA PCR Negative (Negative) 11/08/18 12:12 E. muris-like DNA (PCR) Negative (Negative) 11/08/18 12:12 CT head: No definite abnormality is demonstrated. The possibility of a very small region of high right parietal infarction could not be totally excluded.
[2018-11-11] MEDS: Ezetimibe 10 MG TAB PO (22:05)
[2018-11-11] MEDS: Simvastatin 40 MG TAB PO (22:05)
[2018-11-11 22:30] LABS: PTT Activated 67.3 sec (21.0-31.4)
[2018-11-12] VITALS (9 sets, daily range): BP systolic 150–172; BP diastolic 77–103; PULSE 72–90; RESP 18–19; TEMP 36.1–37; O2SAT 92–97
[2018-11-12 05:19] LABS: Abs Immature Grans 0.01 k/cumm (0.0-0.09); Absolute Basophil Count 0.04 k/cumm (0.0-0.2); Absolute Eosinophil Count 0.63 k/cumm (0.0-0.7); Absolute Lymphocyte Count 2.14 k/cumm (1.2-3.4); Absolute Monocyte Count 0.59 k/cumm (0.11-0.7); Absolute Neutrophil Count 2.08 k/cumm (1.2-6.7); Basophils % 0.7; Eosinophils % 11.5; HCT 35.2 % (40.0-50.0); HGB 12.1 g/dL (13.5-17.5); Immature Grans % 0.2; Mean Corp. HGB Concentration 34.4 g/dL (32.0-36.0); Mean Corpuscular Hemoglobin 30.9 pg (27.0-33.0); Mean Corpuscular Volume 89.8 fL (80-95); Mean Platelet Volume 9.1 fL (8.0-11.0); Monocytes % 10.7; Neutrophils % 37.9; Platelet Count 286 x1000/uL (130-400); RBC 3.92 m/cumm (4.50-6.00); RBC Distribution Width 12.7 % (11.8-14.1); White Blood Cell Count 5.49 k/cumm (4.4-10.8)
[2018-11-12 05:30] LABS: Anion Gap 8.5 mmol/L (3-11); BUN 19 mg/dL (7-18); CO2 23.5 mmol/L (21.0-32.0); CREATININE 1.01 mg/dL (0.70-1.30); Calcium 8.6 mg/dL (8.5-10.1); Chloride 95 mmol/L (98-107); Glucose 159 mg/dL (70-100); Magnesium 1.9 mg/dL (1.8-2.4); Potassium 4.6 mmol/L (3.5-5.1); Sodium 127 mmol/L (136-145)
[2018-11-12 05:47] LABS: PTT Activated 51.7 sec (21.0-31.4)
[2018-11-12] MEDS: Ketorolac 15 MG/ML VIAL IVP ×2 (07:35→14:18)
[2018-11-12] MEDS: Aspirin 325 MG TAB PO (07:35)
[2018-11-12] MEDS: Cyanocobalamin 500 MCG TAB 1000 MCG PO (07:35)
[2018-11-12] MEDS: Cetirizine 10 MG TAB PO (07:35)
[2018-11-12] MEDS: Multivitamin TAB 1 TAB PO (07:35)
[2018-11-12] MEDS: Venlafaxine 37.5 MG CAPCR PO (07:35)
[2018-11-12] MEDS: Omeprazole 20 MG CAPCR 40 MG PO (07:35)
--- NOTE | 2018-11-12 09:59 | OT.INTREAT ---
Date of service: 11/12/18 Time of Service: 09:30 Occupational Therapy Notes Occupational Therapy Inpatient Treatment Note Date: 11/12/18 PRECAUTIONS: Fall, Standard SUBJECTIVE: Pt states that he is feeling better, he is waiting to be transferred to [facility] for further consultation and surgery. OBJECTIVE: PAIN:no c/o pain BATHING: Sitting in chair Upper Body: (I) Lower Body: (I) DRESSING: Sitting in chair Upper Extremity: (I) don and doffing [facility] gown Lower Extremity: (I) don and doffing (B) socks GROOMING: Sitting in chair and is (I) with shaving PLAN: Pt is demonstrating increased (I) in his ADL routines. He has ideal ROM of UE/LE ROM. Functionally he requires min vc throughout. OT will monitor pts response to todays session and progress accordingly. TREATMENT CODES/TIME: [id number], 18 minutes (09:30) Rachell Clements OTR/[facility]
--- NOTE | 2018-11-12 12:26 | PT.INNT ---
Date of service: 11/12/18 Time of Service: 12:26 PT Notes 11/12/18 Patient refused morning PT session, however, requested afternoon PT later today.
--- NOTE | 2018-11-12 14:32 | PDOC.CMPRO ---
- If Service Date Differs Date of service: 11/12/18 Time of Service: 14:32 Care Management Progress Note S/O: Ramses was sitting up in his chair during the conversation with CM. He stated that he was feeling ok, but he had to wear ear plugs in order to sleep. 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 He stated that his pain was under control now, and that they are still waiting for [facility] to have a bed in order to transfer him. He also reported that he does not want to go to a different facility, and that he is comfortable waiting for [facility]. CM will continue to follow. A: Ramses is a 72 year old Male admitted for acute right arterial ischemic stroke on 11/08/18 P: Anticipate Ramses will be transferred to [facility] for surgery when a bed is available, today or tomorrow. He will be transferred via ambulance when ready. Follow up with neuro and PCP. CM will follow.
--- NOTE | 2018-11-12 14:34 | PT.INTREAT ---
Date of service: 11/12/18 Time of Service: 14:34 PT Notes Inpatient Physical Therapy Treatment Note [facility] Date: 11/12/18 PRECAUTIONS: Fall SUBJECTIVE: Nelli is agreeable to participating in PT, stating he is excited to get up and take a walk. He reports that he is still waiting for bed availability at [facility] and hopes to be discharged there soon. OBJECTIVE: PAIN: No complaints of pain BED MOBILITY/TRANSFERS Sit-stand: I Stand-sit: I GAIT Assistive Device: FWW Weight bearing: Full Assist: S Distance: 500' + THEREX: Patient completed a lower extremity strengthening program, in a standing position, as per flow sheet. Patient requires B UE support for balance while performing exercises in standing position. ASSESSMENT: Patient tolerated session without complaint. He was able to tolerate a progression in gait distance with FWW support and supervision patient is now demonstrating independence with sit<>supine transfers. PLAN: Continue with PTs POC TREATMENT CODE/TIME: 40 minutes; 39776 x2, [id number]
--- NOTE | 2018-11-12 19:28 | W.PM.PROGNOT ---
Date of Service Date of service: 11/12/18 Time of Service: 16:45 Assessment and Plan Assessment and plan (1) CVA (cerebral vascular accident): Status: Acute Assessment and plan: With evidence of symptomatic R carotid stenosis. Symptoms resolved. Continue heparin gtt while awaiting a bed at [facility] [facility]. Patient refuses transfer to any other facility and understands the risk of waiting. Accepting MD: Dr Cintron once there is a bed available. Will continue calling [facility] daily. (2) Cervical herniated disc: Status: Acute Assessment and plan: Likely the cause of headache, neck and shoulder pain. Will need to follow up with neurosurgery as outpatient. (3) Chronic obstructive lung disease: Status: Acute Assessment and plan: at baseline. Continue home therapy (4) Diabetes mellitus: Status: Acute Assessment and plan: Hold metformin. Cover with SSI. (5) ASCVD (arteriosclerotic cardiovascular disease): Status: Chronic Assessment and plan: stable. Continuing permissive hypertension per neurology (6) Paroxysmal atrial fibrillation: Status: Chronic Assessment and plan: Presently in NSR. Cardioembolic etiology is less likely than thromboembolic, per neurology. (7) Hyponatremia: Status: Acute Assessment and plan: Acute on chronic. Etiology unclear. Will trial IVF today and recheck sodium in am. (8) DVT prophylaxis: Status: Acute Assessment and plan: TEDs + SCD's. On therapeutic anticoagulation with heparin gtt. (9) Discharge planning issues: Status: Acute Assessment and plan: Full code Awaiting bed availability at [facility] [place] for carotid endarterectomy; refuses transfer to any other tertiary care facility. Subjective Subjective Interval history since last seen: Mr Walker states he is feeling better today. Denies dizziness, headache unless he lays in a certain position in the bed, shortness of breath, nausea, vomiting. There is still no bed at [facility] for him, and he continues to refuse transfer to any other facility. Exam Narrative Exam Narrative: General: Very pleasant, elderly male, sitting up in a chair in a great mood, A&Ox3, able to move all 4 extremities Neurological: A&OX3, no obvious focal deficits HEENT: EOMI, MMM Cardiovascular: RRR, + quiet GENEVA Lungs: CTAB Gastrointestinal: abdomen is soft, nontender, nondistended Extremities: no e/c/c BLE's Objective Objective Clinical Data: Abnormal lab results 0911/12/18 11/12/18 Range/Units 21:40 05:00 05:00 RBC (4.50-6.00) m/cumm Hgb (13.5-17.5) g/dL Hct (40.0-50.0) % APTT 67.3 H D 51.7 H D (21.0-31.4) sec Sodium 127 L (136-145) mmol/L Chloride 95 L (98-107) mmol/L BUN 19 H (7-18) mg/dL Glucose 159 H (70-100) mg/dL 11/12/18 Range/Units 05:00 RBC 3.92 L (4.50-6.00) m/cumm Hgb 12.1 L (13.5-17.5) g/dL Hct 35.2 L (40.0-50.0) % APTT (21.0-31.4) sec Sodium (136-145) mmol/L Chloride (98-107) mmol/L BUN (7-18) mg/dL Glucose (70-100) mg/dL Vital Signs Temperature 37.0 C 11/12/18 16:01 Temperature Source Tympanic 11/12/18 16:01 Pulse 73 11/12/18 16:01 Pulse Rhythm Regular 11/12/18 07:42 Respiratory Rate 18 11/12/18 16:01 Respiratory Effort Non-Labored 11/12/18 07:42 Respiratory Depth Normal 11/12/18 07:42 Respiratory Pattern Normal 11/12/18 07:42 Blood Pressure 150/81 H 11/12/18 16:01 Blood Pressure Position Supine 11/08/18 12:04 Pulse Oximetry 96 11/12/18 16:01 Oxygen Delivery Method Room Air 11/12/18 16:01 Oxygen Flow Rate 0 11/12/18 16:01 Pain Level 0 11/12/18 16:01 Comment 11/11/18 11:20 Intake & Output 11/11/18 11/12/18 11/12/18 23:59 11:59 23:59 Intake Total 402.55 / 836.242 323.3 / 563.3 240 / 563.3 Output Total 325 / 1700 800 / 800 Balance 77.55 / -863.758 -476.7 / -236.7 240 / -236.7 Weight 90.2 kg Intake: IV 162.55 / 256.242 83.3 / 83.3 Oral 240 / 580 240 / 480 240 / 480 Output: Urine 325 / 1700 800 / 800 Other: Urine Color Yellow Yellow Urine Appearance Clear Clear Urine Odor Normal Normal Comment Voids x2 in urinal. Voiding Methods Urinal Urinal Laboratory Results WBC 5.49 k/cumm (4.4-10.8) 11/12/18 05:00 RBC 3.92 m/cumm (4.50-6.00) L 11/12/18 05:00 Hgb 12.1 g/dL (13.5-17.5) L 11/12/18 05:00 Hct 35.2 % (40.0-50.0) L 11/12/18 05:00 MCV 89.8 fL (80-95) 11/12/18 05:00 MCH 30.9 pg (27.0-33.0) 11/12/18 05:00 MCHC 34.4 g/dL (32.0-36.0) 11/12/18 05:00 RDW 12.7 % (11.8-14.1) 11/12/18 05:00 Plt Count 286 x1000/uL (130-400) 11/12/18 05:00 MPV 9.1 fL (8.0-11.0) 11/12/18 05:00 Immature Gran % 0.2 11/12/18 05:00 Neutrophils % 37.9 11/12/18 05:00 Lymphocytes % 39.0 11/12/18 05:00 Monocytes % 10.7 11/12/18 05:00 Eosinophils % 11.5 11/12/18 05:00 Basophils % 0.7 11/12/18 05:00 Absolute Neutrophils 2.08 k/cumm (1.2-6.7) 11/12/18 05:00 Absolute Lymphocytes 2.14 k/cumm (1.2-3.4) 11/12/18 05:00 Absolute Monocytes 0.59 k/cumm (0.11-0.7) 11/12/18 05:00 Absolute Eosinophils 0.63 k/cumm (0.0-0.7) 11/12/18 05:00 Absolute Basophils 0.04 k/cumm (0.0-0.2) 11/12/18 05:00 PT 9.9 sec (9.3-11.0) 11/08/18 12:12 INR 1.0 (0.9-1.1) 11/08/18 12:12 APTT 51.7 sec (21.0-31.4) H D 11/12/18 05:00 Sodium 127 mmol/L (136-145) L 11/12/18 05:00 Potassium 4.6 mmol/L (3.5-5.1) 11/12/18 05:00 Chloride 95 mmol/L (98-107) L 11/12/18 05:00 Carbon Dioxide 23.5 mmol/L (21.0-32.0) 11/12/18 05:00 Anion Gap 8.5 mmol/L (3-11) 11/12/18 05:00 BUN 19 mg/dL (7-18) H 11/12/18 05:00 Creatinine 1.01 mg/dL (0.70-1.30) 11/12/18 05:00 Estimated GFR/1.73 m2 >= 60.00 (mL/min/1.73m2) 11/12/18 05:00 Glucose 159 mg/dL (70-100) H 11/12/18 05:00 Hemoglobin A1c 7.4 % (4.5-6.2) H 11/09/18 06:50 Calcium 8.6 mg/dL (8.5-10.1) 11/12/18 05:00 Magnesium 1.9 mg/dL (1.8-2.4) 11/12/18 05:00 Total Bilirubin 0.5 mg/dL (0.2-1.0) 11/08/18 12:12 AST 24 U/L (15-37) 11/08/18 12:12 ALT 26 U/L (16-63) 11/08/18 12:12 Alkaline Phosphatase 71 U/L (46-116) 11/08/18 12:12 Troponin I < 0.05 ng/mL (0.00-0.06) 11/08/18 14:58 Total Protein 7.1 g/dL (6.4-8.2) 11/08/18 12:12 Albumin 3.9 g/dL (3.4-5.0) 11/08/18 12:12 Triglycerides 58 mg/dL (30-150) 11/09/18 06:50 Total Cholesterol 126 mg/dL (50-200) 11/09/18 06:50 LDL Cholesterol, Calc 74 mg/dL 11/09/18 06:50 HDL Cholesterol 41 mg/dL (40-60) 11/09/18 06:50 Vitamin B12 499 pg/mL (193-986) 11/09/18 06:50 TSH 2.68 uIU/mL (0.36-3.74) 11/09/18 06:50 Urine Color Yellow (Yellow) 11/08/18 15:15 Urine Clarity Clear (Clear) 11/08/18 15:15 Urine pH 5.5 (5-8) 11/08/18 15:15 Ur Specific [place] 1.010 (1.005-1.025) 11/08/18 15:15 Urine Protein Negative mg/dL (Negative) 11/08/18 15:15 Urine Ketones Negative mg/dL (Negative) 11/08/18 15:15 Urine Blood Negative (Negative) 11/08/18 15:15 Urine Nitrite Negative (Negative) 11/08/18 15:15 Urine Bilirubin Negative (Negative) 11/08/18 15:15 Urine Urobilinogen 0.2 EU/dL (Up TO 0.2) 11/08/18 15:15 Ur Leukocyte Esterase Negative (Negative) 11/08/18 15:15 Urine Glucose Negative mg/dL (Negative) 11/08/18 15:15 A.phagocytophil DNA PCR Negative (Negative) 11/08/18 12:12 B. divergens/MO-1 PCR Negative (Negative) 11/08/18 12:12 Babesia duncani (PCR) Negative (Negative) 11/08/18 12:12 Babesia microti DNA PCR Negative (Negative) 11/08/18 12:12 Borrelia (PCR) Negative (Negative) 11/08/18 12:12 Lyme Disease Antibody Negative 11/08/18 12:12 E.chaffeensis DNA (PCR) Negative (Negative) 11/08/18 12:12 E.ewingii/canis DNA PCR Negative (Negative) 11/08/18 12:12 E. muris-like DNA (PCR) Negative (Negative) 11/08/18 12:12
[2018-11-12] MEDS: Simvastatin 40 MG TAB PO (21:00)
[2018-11-12] MEDS: Ezetimibe 10 MG TAB PO (21:00)
[2018-11-13] VITALS (10 sets, daily range): BP systolic 148–166; BP diastolic 78–98; PULSE 72–83; RESP 16–18; TEMP 36.6–37; O2SAT 96–97
[2018-11-13 06:05] LABS: PTT Activated 44.7 sec (21.0-31.4)
[2018-11-13] MEDS: Ketorolac 15 MG/ML VIAL IVP (06:36)
[2018-11-13] MEDS: Normal Saline Flush 10 ML SYR IVP (06:37)
[2018-11-13] MEDS: Omeprazole 20 MG CAPCR 40 MG PO (07:47)
[2018-11-13] MEDS: Aspirin 325 MG TAB PO (07:47)
[2018-11-13] MEDS: Normal Saline 1,000 ML 75 ML IV ×2 (07:47→19:46)
[2018-11-13] MEDS: Cetirizine 10 MG TAB PO (07:47)
[2018-11-13] MEDS: Cyanocobalamin 500 MCG TAB 1000 MCG PO (07:47)
[2018-11-13] MEDS: Venlafaxine 37.5 MG CAPCR PO (07:48)
[2018-11-13] MEDS: Multivitamin TAB 1 TAB PO (07:48)
[2018-11-13 08:29] LABS: HGB 12.4 g/dL (13.5-17.5); Mean Corp. HGB Concentration 34.4 g/dL (32.0-36.0); Mean Corpuscular Hemoglobin 30.5 pg (27.0-33.0); Mean Corpuscular Volume 88.7 fL (80-95); Mean Platelet Volume 9.9 fL (8.0-11.0); Platelet Count 295 x1000/uL (130-400); RBC 4.06 m/cumm (4.50-6.00); RBC Distribution Width 12.6 % (11.8-14.1); White Blood Cell Count 4.98 k/cumm (4.4-10.8)
[2018-11-13 08:31] LABS: Anion Gap 9.6 mmol/L (3-11); BUN 17 mg/dL (7-18); CO2 22.4 mmol/L (21.0-32.0); Calcium 8.8 mg/dL (8.5-10.1); Chloride 96 mmol/L (98-107); Glucose 167 mg/dL (70-100); Magnesium 2.1 mg/dL (1.8-2.4); Potassium 4.7 mmol/L (3.5-5.1); Sodium 128 mmol/L (136-145)
--- NOTE | 2018-11-13 08:42 | W.INDIABCONS ---
Date of service: 11/13/18 Time of Service: 08:42 Diabetes Inpatient Consult DESCRIPTION/ASSESSMENT: Appreciate diabetes consult for Mr. Walker who is hospitalized with cardiovascular concerns. BMI 30 A1c 7.4 for this 72 year old. This hospitalization blood sugars 129-178 without medication eating 40-50grams carbohydrate at a meal. At home he receives Metformin 1000mg twice daily. Generally well controlled and without episodic hyperglycemia above 180mg/dl. INTERVENTION: No intervention suggested at this time. PLAN: Will follow blood sugars. Time Spent in Nutritional Counseling and Treatment: 0
--- NOTE | 2018-11-13 10:31 | NT_ITS ---
Date of service: 11/13/18 Time of Service: 10:31 PT Notes Inpatient Physical Therapy Treatment Note [facility] Date: 11/13/18 PRECAUTIONS: Fall, monitor BP SUBJECTIVE: Ramses is agreeable to participating in PT, he reports that he's still awaiting bed availability at [facility], to transfer there. OBJECTIVE: PAIN: No c/o pain BED MOBILITY/TRANSFERS Sit-stand: I Stand-sit: I GAIT Assistive Device: SPC Weight bearing: Full Assist: SBA-S Distance: 500'+ VITALS: BP post ambulation: 155/96 ASSESSMENT: Patient tolerated session well without complaint. He was able to tolerate gait training with use of SPC support, well with SBA-S. PLAN: Continue with PT's POC TREATMENT CODE/TIME: Session 1: 30 minutes; 77147 x2
--- NOTE | 2018-11-13 10:51 | OT.INNT ---
Date of service: 11/13/18 Time of Service: 10:45 Occupational Therapy Notes 11/13/18 OT went to see pt who reports that he is already washed up and is resting from physical therapy tx. He reports that he is waiting to transfer to [facility]. He denies wanting to go to sink for teeth brushing at this time. OT will resume OT services on Friday. Rachell Clements, OTR/[facility]
--- NOTE | 2018-11-13 13:47 | CMPROGNOTE_ITS ---
- If Service Date Differs Date of service: 11/13/18 Time of Service: 13:47 Care Management Progress Note S/O: Ramses was sitting up in his chair during the conversation with CM. He was pleasant and engaged, and told CM he likes having company to talk with. He stated that he was feeling ok, but he is anxious to be transferred to [facility] [place], which is still the current plan. He reported that he does not want to go to a different facility, and that he is comfortable waiting for [facility]. CM will continue to follow. A: Ramses is a 72 year old Male admitted for acute right arterial ischemic stroke on 11/08/18 P: Anticipate Ramses will be transferred to [facility] for surgery when a bed is available, today or tomorrow. He will be transferred via ambulance when ready. Follow up with neuro and PCP. CM will follow.
--- NOTE | 2018-11-13 14:23 | PT.INTREAT ---
Date of service: 11/13/18 Time of Service: 10:31 PT Notes Inpatient Physical Therapy Treatment Note [facility] Date: 11/13/18 PRECAUTIONS: Fall, monitor BP SUBJECTIVE: Ramses is agreeable to participating in PT, he reports that he's still awaiting bed availability at [facility], to transfer there. OBJECTIVE: PAIN: No c/o pain BED MOBILITY/TRANSFERS Sit-stand: I Stand-sit: I GAIT Assistive Device: SPC Weight bearing: Full Assist: SBA-S in a.m.; SBA in p.m. Distance: 500'+ in both a.m. and p.m. VITALS: BP post ambulation: 155/96 in a.m. ASSESSMENT: Patient tolerated session well without complaint. He was able to tolerate gait training without use of assistive device support, well with SBA. PLAN: Continue with PT's POC TREATMENT CODE/TIME: Session 1: 30 minutes; [id number] x2 Session 2: 25 minutes; [id number] x2
--- NOTE | 2018-11-13 14:49 | CHAPLAIN ---
Ramses was sitting up in his chair this afternoon when I visited. He is pleasant and enjoys conversation. He is waiting to be transferred to [facility] [place]. Ramses fully believes that what happens to him, (when a bed will open up at [facility], how successful his surgery is) is in God's hands. He said he doesn't attend a religious but believes that he can pray anywhere and credits his relationship with God as the guiding force in his life. He is comfortable and confident in being in God's hands. Ramses's has a trip out [place] planned for Nov.18 to attend a family wedding. Ramses is hoping to convince her to go on the trip and he hopes he is in [facility] by then.
--- NOTE | 2018-11-13 15:08 | PHARADMIT ---
Admission Pharmacy Clinical Review SUSPECTED CVA Code Status Full Code Current Weight Wgt-89.2 kg Renally Cleared and Narrow Therapeutic Index Meds CrCl~ 63 mL/min Meds-OK QTc Value / Action Taken QTc-446 NA BP Control, Fever BP-140/90 Tmax-37C Electrolytes reviewed Na-128 K+4.7 Mag-2.1 DVT Prophylaxis Heparin Drip, ASA Opiate Usage / Scheduled Bowel Regimen Ordered No Yes Plt/SCr for Heparin / Enoxaparin Plts-295 SCr-1.0 INR for Warfarin inr-1.0 H/H stable, WBC/Bands H&H- 12.4/36 WBC- 4.98 Antibiotic appropriateness none Cultures and Sensitivities none Surgical ABX d/c within 24 hr na DM control / Insulin Dosing BG-167 WoT4p-4.4% on Aspart Heart Failure (Check EF%) (YUE's, B-Block, Diuretics) NTG IV to PO Switch No Home Meds Reviewed Yes Home Meds Not Ordered Ibuprofen (on Toradol iv here), Metformin, Lopressor, Bactroban Comments
--- NOTE | 2018-11-13 18:45 | W.PM.DS.N ---
Date of service: 11/13/18 Time of Service: 18:45 DS: Diagnosis Discharge Diagnosis (1) CVA (cerebral vascular accident): Status: Acute (2) Symptomatic carotid artery stenosis: Status: Acute (3) Cervical herniated disc: Status: Acute (4) Chronic obstructive lung disease: Status: Acute (5) Diabetes mellitus: Status: Acute (6) ASCVD (arteriosclerotic cardiovascular disease): Status: Chronic (7) Paroxysmal atrial fibrillation: Status: Chronic (8) Hyponatremia: Status: Acute (9) Cardiomyopathy: Status: Acute (10) Chronic systolic CHF (congestive heart failure): Status: Acute Discharge Plan Disposition Patient Disposition: [facility] Condition: Stable Discharge Details Chief Complaint: CVA/TIA Clinical Impression: TIA (transient ischemic attack), Numbness and tingling of left upper and lower extremity Reason For Visit: SUSPECTED CVA Admit Date/Time: 11/10/18 16:46 Admit Provider: Teresa Colon Attending Provider: Teresa Colon Primary Care Provider: Christel Godoy ED Provider: Fatimah Bautista Hospital Course Hospital Course: Mr Walker is a 72 year old male with PMHx of CAD s/p stent in 1997 and CABG x 3 4 years ago, as well as paroxysmal Afib, Chronic systolic cHF not normally on anticoagulation, hypertension, hyperlipidemia, non-O2 dependent COPD, admitted to [facility] on 11/08/18 with an acute CVA. He had originally presented with LUE/LLE weakness, L facial droop, L-sided neck pain, headache, and photophobia of left eye. His workup was significant for an acute CVA of high right parietal lobe, at least 65% stenosis of proximal right ICA, and multilevel disc herniations, especially at C3-4 and C6-7, especially so at C3-4 with an abnormal signal within the spinal cord. The patient was evaluated by Dr Carrera of Neurology, who felt that the patient would benefit from a vascular consult and possible intervention. [facility] Vascular Surgery (Rocio Cintron and Faith) both feel that the patient would benefit from carotid endarterectomy on an inpatient basis given his symptomatic right aortic stenosis. Dr Farfan of Neurology service at [facility] agrees to accept the patient in transfer. The patient is being anticoagulated with heparin drip. He was upgraded from baby aspirin to full dose. He is on a statin and zetia. He is off of his antihypertensives at this time as permissive hypertension is being pursued. It is also worth noting that the patient has been having severe headaches with photophobia throughout his hospitalization, which seem to respond to NSAIDS. The patient states these headaches are new to him. A repeat head CT was done on 11/11/18 when the patient reported the worst headache of his life - this was negative for any cerebral hemorrhage, and the heparin drip was continued. Currently, the patient's symptoms have resolved. Also, given decrease in his EF from 40% to 30-35%, it is recommended that he has a close follow up with cardiology as he may be a candidate for an AICD. The patient is in agreement with transfer to [facility] and is medically stable for transfer. We appreciate the assistance of the [facility] clinical team and wish the patient well! Home Meds and New Rx's Prescriptions: No Action aspirin 81 MG tablet,delayed release (DR/EC) 81 mg PO HS RF: 0 albuterol sulfate [ProAir HFA] 8.5 GM HFA aerosol inhaler 2 puff Inhalation Q4H PRN Qty: 3 RF: 4 venlafaxine [Effexor XR] 37.5 MG capsule,extended release 24hr 37.5 mg PO DAILY Qty: 90 RF: 4 cyanocobalamin (vitamin B-12) [Vitamin B-12] 1,000 MCG tablet 1,000 mcg PO DAILY Qty: 100 RF: 4 ezetimibe [Zetia] 10 MG tablet 10 mg PO DAILY Qty: 90 RF: 4 simvastatin 40 MG tablet 40 mg PO HS Qty: 90 RF: 4 omeprazole 40 mg capsule,delayed release(DR/EC) 40 mg PO DAILY RF: 0 metformin 1,000 mg tablet 1,000 mg PO BID RF: 0 Stiolto Respimat 2.5-2.5 mcg/actuation mist 2 puff IH DAILY RF: 0 nitroglycerin [Nitrostat] 0.4 mg tablet, sublingual 0.4 mg sublingual Q5M PRNRF: 0 metoprolol tartrate 25 mg tablet 12.5 mg PO BID RF: 0 acetaminophen 500 mg capsule 1,000 mg PO Q6H PRNRF: 0 ibuprofen 800 mg tablet 800 mg PO DAILY PRNRF: 0 multivitamin Tablet 1 tab PO DAILY RF: 0 fluticasone propionate [Flonase Allergy Relief] 50 mcg/actuation spray,suspension 2 spray DANDY DAILY PRNRF: 0 All Day Allergy (cetirizine) 10 MG capsule 10 mg PO DAILY RF: 0 Discharge Instructions Activity:: Activity as Tolerated Diet:: As Tolerated Discharge Orders Discharge Orders: Discharge Order (Routine); Ordered 11/13/18 Ordered By: Teresa Colon DS: Summary Status at Discharge Functional status at discharge: independent ambulation Overall status at discharge: patient is back to baseline Mental Status: mental status grossly normal Speech and Movement: speech and movement normal Mood: congruent mood Affect: normal affect Exam Narrative Exam Narrative: General: Very pleasant elderly male, sitting up in a chair in a great mood, A&Ox3, able to move all 4 extremities Neurological: A&OX3, no obvious focal deficits HEENT: EOMI, MMM Cardiovascular: RRR, + quiet GENEVA Lungs: CTAB Gastrointestinal: abdomen is soft, nontender, nondistended Extremities: no e/c/c BLE's Psych Mental Status: mental status grossly normal Speech and Movement: speech and movement normal Mood: congruent mood Affect: normal affect DS: Data Vitals/I&O Vitals and I&O: Vital Signs Temperature 36.7 C 11/13/18 15:09 Temperature Source Tympanic 11/13/18 15:09 Pulse 79 11/13/18 16:59 Pulse Rhythm Regular 11/13/18 16:19 Respiratory Rate 18 11/13/18 15:09 Respiratory Effort Non-Labored 11/13/18 16:19 Respiratory Depth Normal 11/13/18 16:19 Respiratory Pattern Normal 11/13/18 16:19 Blood Pressure 155/85 H 11/13/18 15:09 Blood Pressure Position Supine 11/08/18 12:04 Pulse Oximetry 97 11/13/18 15:09 Oxygen Delivery Method Room Air 11/13/18 15:09 Oxygen Flow Rate 0 11/13/18 15:09 Pain Level 3 11/13/18 15:09 Comment 11/13/18 07:55 Intake & Output 11/12/18 11/13/18 11/13/18 23:59 11:59 23:59 Intake Total 480 / 803.3 730.000 / 970.000 240 / 970.000 Output Total 500 / 1300 2000 / 2600 600 / 2600 Balance -20 / -496.7 -1270.000 / -1630.000 -360 / -1630.000 Weight 89.2 kg Intake: IV 250.000 / 250.000 Oral 480 / 720 480 / 720 240 / 720 Output: Urine 500 / 1300 2000 / 2600 600 / 2600 Other: Urine Color Yellow Yellow Pale Straw Yellow Urine Appearance Clear Clear Clear Urine Odor Normal Normal Normal Stool Size Large Stool Characteristics Formed Brown Voiding Methods Urinal Toilet Toilet Data Completed and Pending Completed studies during hospitalization [Text1]: CT head without contrast 11/11/18; No definite abnormality is demonstrated. The possibility of a very small region of high right parietal infarction could not be totally excluded. Echo 11/09/18: 1. Left ventricle: The cavity size was normal. Systolic function was moderately to severely reduced. The estimated ejection fraction was 30-35%. Diffuse hypokinesis. Findings consistent with diastolic dysfunction. There was no evidence of elevated ventricular filling pressure by Doppler parameters. 2. Right ventricle: The cavity size was normal. Wall thickness was normal. Systolic function was normal. 3. Atrial septum: No defect or patent foramen ovale was identified. 4. Pulmonary arteries: Systolic pressure could not be accurately estimated. 5. Inferior vena cava: The vessel was normal in size. The respirophasic diameter changes were in the normal range (greater than or equal to 50%), consistent with normal central venous pressure. C-spine MRI11/09/18: Multilevel disc herniations, most prominent at C3-4 and at C6-7. There is marked narrowing of the spinal cord particularly at C3-4 and there is intra cord signal abnormality also identified at this level. Please see above discussion for findings at individual levels. Brain MRI 11/09/18: Conclusion mild cerebral atrophy and microvascular ischemic changes. Question focal acute or subacute infarcts in watershed region of high right parietal lobe. Brain MRA 11/09/18: Examination limited by artifact. No gross occlusion or aneurysm. Stenosis not excluded on the basis of this examination. Additional evaluation with CT angiography is suggested if clinically indicated CTA head/neck 11/08/18: Findings suggesting luminal diameter stenosis proximal right ICA, approximately 65 percent, left ICA approximately 50 percent Findings suggesting supraclinoid ICA stenosis bilaterally, 80 percent luminal diameter on the right and less than 50 percent luminal diameter on the left CXR 11/08/18: No evidence of acute process. CT head without contrast 11/08/18: No evidence of acute intracranial process Labs on day of discharge: Labs from last 24 hours 11/13/18 11/13/18 11/13/18 05:40 05:40 05:40 WBC 4.98 RBC 4.06 L Hgb 12.4 L Hct 36.0 L MCV 88.7 MCH 30.5 MCHC 34.4 RDW 12.6 Plt Count 295 MPV 9.9 APTT 44.7 H Sodium 128 L Potassium 4.7 Chloride 96 L Carbon Dioxide 22.4 Anion Gap 9.6 BUN 17 Creatinine 1.00 Estimated GFR/1.73 m2 >= 60.00 Glucose 167 H Calcium 8.8 Magnesium 2.1 [facility] Medical History ASCVD (arteriosclerotic cardiovascular disease) (Chronic) 11/01 CABG x 3 at [facility] (after NSTEMI) 04/04 echo [facility] LVEF 60% Inferior [place] 1998 Cardiomyopathy (Acute) Latest EF is 30-35% per echo 11/09/18 Chronic back pain (Acute) Chronic obstructive lung disease (Acute) quit smoking ; non-oxygen dependent Diabetes mellitus (Acute) non-insulin dependent Difficulty hearing (Acute) Gastroesophageal reflux disease (Inactive) Hyperlipidemia (Inactive) Hypertension (Chronic) Paroxysmal atrial fibrillation (Inactive 11/24/14) STEMI (ST elevation myocardial infarction) (Resolved ~11/14/15) Surgical History S/P CABG x 3 (Acute) S/P coronary artery stent placement (Acute) S/P hernia repair (Chronic ~2012) incisional umbilical hernia repair by Dr Abiel Rivera, [facility] on 07/16/2016, right inguinal hernia repair with Dr Lan Mendoza, [facility] on 01/29/13 and on 08/13/13 also at [facility] by Dr Mendoza a repair of incisional hernia with hydrocele repair on the right. S/P repair of hydrocele (Acute) S/P tonsillectomy (Acute) VIDEO CAPSULE ENDOSCOPY (10/13/13) [facility] Family History Mother Essential hypertension Heart disease Hyperlipidemia Father Heart disease Sister Essential hypertension Hyperlipidemia Brother , Farming accident No problems noted. Brother Stroke Brother Essential hypertension Heart disease Hyperlipidemia Brother Essential hypertension Hyperlipidemia Brother Heart disease bypass surgeries Grandfather Heart disease Grandfather No problems noted. Grandmother Personal history of malignant neoplasm Lung Heart disease Grandmother No problems noted. Social History Smoking/Tobacco Use Status: Former Tobacco Use Quit Date: 02/17/67 Tobacco: How many years used: 7 Alcohol Intake: former Details: history of alcohol abuse Drug use: Never Substance use type: does not use Do you feel safe at home: Yes Do you feel safe in your relationship?: Yes
--- NOTE | 2018-11-16 07:03 | OTDS_ITS ---
Date of service: 11/16/18 Time of Service: 07:03 Occupational Therapy Notes Occupational Therapy Inpatient Discharge Summary Date: 11/16/18 for 11/13/18 Dates of Service: 11/09/18-11/13/18 Referring Doctor: Teresa Colon MD OT Orders: Urgent- safety consult for D/C Precautions: fall, standard PATIENT PROFILE/ADMITTING DIAGNOSIS: Pt is a 72 year old male who was admitted to [facility] through the ER for diagnosis of TIA (transient ischemic attack), Numbness and tingling of left upper and lower extremity. Pt is undergoing testing today which he reports thatis to test for Lyme and other issues that may be causing this. Past Medical History: Medical History ASCVD (arteriosclerotic cardiovascular disease) (Inactive) 11/01 CABG x 3 at [facility] (after NSTEMI) 04/04 echo [facility] LVEF 60% Inferior [place] 1998 Chronic obstructive lung disease (Inactive) quit smoking Diabetes mellitus (Inactive) Gastroesophageal reflux disease (Inactive) Hyperlipidemia (Inactive) Paroxysmal atrial fibrillation (Inactive 11/24/14) STEMI (ST elevation myocardial infarction) (Resolved ~11/14/15) Surgical History S/P hernia repair (Chronic ~2012) incisional umbilical hernia repair by Dr Abiel Rivera, [facility] on 07/16/2016, right inguinal hernia repair with Dr Lan Mendoza, [facility] on 01/29/13 and on 08/13/13 also at [facility] by Dr Mendoza a repair of incisional hernia with hydrocele repair on the right. VIDEO CAPSULE ENDOSCOPY (10/13/13) [facility] Current Functional Limitations: Unable to perform his ADLs/IADLS or functional mobility without (A) due to weakness in his (L) UE/LE. Social History/Home Situation: Pt lives in a private home with his in [place]. He states that at baseline he is totally (I) all ADLS/IADLs. He does not need any (A) with any of his functional activities or functional mobility. He states that he is not at his baseline level of function at this time. Equipment owned/DME: Grab bars in bathroom. SUBJECTIVE: NT OBJECTIVE: This document serves as a summary of care while patient was admitted at [facility], no skilled OT services were provided for this documentation. ROM: RUE AROM WNL, shoulder flexion limited to 130* due to rotator cuff pathology (chronic) L UE AROM shoulder WNL, elbow WNL, hand and digits WNL STRENGTH: RUE Shoulder flexion 5/5, bicep 5/5, tricep 5/5, process specialist is strong and symmetrical LUE Shoulder flexion 5/5, bicep 5/5, tricep 5/5, process specialist is strong and symmetrical FUNCTIONAL MOBILITY/ADLS: Transfers Supine-sit (I) Sit-supine (I) Sit-stand (S) Stand-sit (S) BATHING: Sitting in chair Upper Body: (I) Lower Body: (I) DRESSING: Sitting in chair Upper Extremity: (I) don and doffing hospital gown Lower Extremity: (I) don and doffing (B) socks GROOMING: Sitting in chair and is (I) with shaving EATING: (I) sitting in chair BALANCE: Static sitting Normal Dynamic Sitting Normal Static Standing Normal Dynamic Standing Good ASSESSMENT: Patient is a 72-year-old male referred to occupational therapy services with diagnosis of TIA (transient ischemic attack), Numbness and tingling of left upper and lower extremity. Pt was seen for 3 skilled OT sessions and made a significant improvement in his overall functional (I) and (I) in ADL/IADL routines. Pt was able to demonstrate (I) in bathing, dressing, eating, and grooming. He did recover his AROM of his (L) UE and full strength. Pt met all OT goals established for him at initial evaluation. He was transferred to [facility] on 11/13/18 for surgery, based on this OT will plan to discharge pt from skilled OT services at this time. GOALS- ALL MET 1. Transfers (S), LRD 2. Dressing Sitting in chair (I) UE, (I) LE 3. Bathing Sitting in chair (I) UE, (I) LE 4. Toileting on toilet (I) 5. Eating (I) in sitting position with cutting food and food to mouth translation 6. Standing at sink (I) with brushing teeth PLAN OF CARE/TREATMENT PLAN: Discharge from skilled OT services. Pt was transferred to [facility] on 11/13/18 DISCHARGE RECOMMENDATIONS Transfer to [facility] for surgery. TREATMENT TIME/MINUTES/CODES N/A Rachell Clements OTR/L [facility]
--- NOTE | 2018-11-16 08:25 | PT.INDS ---
Date of service: 11/16/18 Time of Service: 08:25 PT Notes Inpatient Physical Therapy Discharge Summary Dates: 11/16/2018 Dates of Service: 11/09/2018 through 11/13/2018 This is a clinical summary of care provided on the duration of dates listed above. No charge was made in the completion of this documentation. Referring Doctor: Teresa Colon MD PT Orders: PT CONSULT: Limited ability Precautions: Fall. Standard. Activity as tolerated. Patient Profile/Admitting Diagnosis: Patient is discharged to acute care hospital for a scheduled carotid endarterectomy surgery. Patient is a 72-year-old male with past medical history significant for ASCVD, diabetes mellitus, and hypertension who presented to the ED on 11/08/2018 with chief complaints of left arm weakness and numbness, left-sided headache, neck pain, eye pain, and left leg weakness/numbness. Patient is diagnosed with suspected CVA, exacerbation of chronic obstructive pulmonary disease, and diabetes mellitus. MRA of the head without contrast came back with impression of moderate stenosis of the right carotid siphon as well as mild stenosis of the M1 segment of the left middle cerebral artery. MRI of the head without contrast with impression of several small subcentimeter acute infarction of the right posterior frontal lobe. MRI of the cervical spine with impression of multilevel disc herniation most prominent at the level of C3-C4 and at C6-C7 as well and has marked narrowing of the spinal canal at the level of C3-C4. PMHX: Medical History (Updated 11/08/18 @ 18:44 by Teresa Colon MD) ASCVD (arteriosclerotic cardiovascular disease) (Chronic) 11/01 CABG x 3 at [facility] (after NSTEMI) 04/04 echo [facility] LVEF 60% Inferior [place] 1998 Chronic back pain (Acute) Chronic obstructive lung disease (Acute) quit smoking ; non-oxygen dependent Diabetes mellitus (Acute) non-insulin dependent Difficulty hearing (Acute) Gastroesophageal reflux disease (Inactive) Hyperlipidemia (Inactive) Hypertension (Chronic) Paroxysmal atrial fibrillation (Inactive 11/24/14) STEMI (ST elevation myocardial infarction) (Resolved ~11/14/15) Surgical History (Updated 11/08/18 @ 18:27 by Teresa Colon MD) S/P CABG x 3 (Acute) S/P coronary artery stent placement (Acute) S/P hernia repair (Chronic ~2012) incisional umbilical hernia repair by Dr Abiel Rivera, [facility] on 07/16/2016, right inguinal hernia repair with Dr Lan Mendoza, [facility] on 01/29/13 and on 08/13/13 also at [facility] by Dr Mendoza a repair of incisional hernia with hydrocele repair on the right. S/P repair of hydrocele (Acute) S/P tonsillectomy (Acute) VIDEO CAPSULE ENDOSCOPY (10/13/13) [facility] Social History/Home Situation: Patient lives in a trailer with his . They have a ramp to enter the home. Equipment Owned/DME: None Subjective: NT. Please refer to NUCLEAR MEDICINE TECHNOLOGIST notes as of 11/13/2018. Objective: General Observation: NT. Please refer to NUCLEAR MEDICINE TECHNOLOGIST notes as of 11/13/2018. Mental Status:NT. Please refer to NUCLEAR MEDICINE TECHNOLOGIST notes as of 11/13/2018. Pain:NT. Please refer to NUCLEAR MEDICINE TECHNOLOGIST notes as of 11/13/2018. ROM: Right Upper Extremity: Shoulder Flexion WFL. Shoulder abduction WFL. Elbow flexion WFL. Wrist flexion WFL. Functional opening and closing of hand WFL. Left Upper Extremity: Shoulder Flexion Markedly decreased. Shoulder abduction Markedly decreased. Elbow flexion WFL. Wrist flexion WFL. Functional opening and closing of hand WFL. Right Lower Extremity: Hip flexion WFL. Hip abduction WFL. Knee flexion WFL. Ankle dorsiflexion WFL. Ankle plantarflexion WFL. Left Lower Extremity: Hip flexion Markedly decreased. Hip abduction WFL. Knee extension Markedly decreased. Knee flexion WFL. Ankle dorsiflexion WFL. Ankle plantarflexion WFL. Strength: Right Upper Extremity: Shoulder flexors 5/5. Shoulder abductors 5/5. Elbow flexors 5/5. Elbow extensors 5/5. Chinese Teacher strong. Left Upper Extremity: Shoulder flexors 3+/5. Shoulder abductors 3+/5. Elbow flexors 3+/5. Elbow extensors 3+/5. Chinese Teacher WFL. Right Lower Extremity: Hip flexors 5/5. Hip abductors 5/5. Knee flexors 5/5. Knee extensors 5/5. Ankle dorsiflexors 5/5. Ankle plantarflexors 5/5. Left Lower Extremity:Hip flexors 3+/5. Hip abductors 4/5. Knee flexors 3+/5. Knee extensors 3+/5. Ankle dorsiflexors 5/5. Ankle plantarflexors 5/5. Sensation: Intact as to pain and pressure on R UE/LE extremities. Diminished on L UE/LE. Bed Mobility/Transfers: Rolling independent Supine to sit independent Sit to supine independent Sit to stand independent Stand to sit independent Bed to chair independent Chair to bed independent Gait: Patient is not able to tolerate 500 feet of level surface ambulation requiring only SBA without the need for an assistive device with full weight is to go this weekend he has bearing. Balance: Static Sitting: Good Dynamic Sitting: Good Static Standing: Fair Dynamic Standing: Fair Assessment: Patient is a 72-year-old male with suspected cerebrovascular accident affecting the left MCA and with a possible infarction of the right posterior frontal lobe as seen on MRA of the brain. Patient also has multilevel disc herniations most prominent at C3-C4, and C6-C7 with a marked narrowing of spinal canal noted at C3-C4 level. His prognosis is fair. Lyme?s Disease. He presents with global weakness on the left side, pain in the left neck, shoulder, and arm and around his eye. He has some slight dysphasia that may have been present prior to his admission. He is an active individual who has the support of his family during his recovery. He is frustrated and concerned about his current presentation and is anxious to get better. His prognosis is fair. Patient presents with clinical signs and symptoms consistent with current/admitting diagnoses that have resulted to mobility limitations, gait instability, generalized weakness, and impairment of motor control as demonstrated by the following impairment level findings: 1. Decreased strength to L LE major muscle groups 2. Impaired sitting/standing balance 3. Impaired activity tolerance 4. Limitation of joint range of motion in left hip and knee Impairments are contributing to the following functional limitations: 1. Dependent bed mobility skills 2. Increased dependence with transfers 3. Inability to safely ambulate without assistive device and physical assistance 4. Increase completion time for mobility ADL performance 5. Increased fall risk 6. Inability to negotiate steps alone safely Goals: Goals X1 week 1. Supine-Sit independent MET 2. Sit-Supine independent MET 3. Sit-Stand independent MET 4. Stand-Sit independent MET 5. Bed-Chair independent MET 6. Chair-Bed independent MET 7. Independent gait on level surface with use of least restrictive device for at least 300 feet without report of pain nor dyspnea NOT MET 8. Independent stair negotiation while holding onto bilateral rails for at least 10 steps without report of pain nor dyspnea NOT MET 9. Independent with home exercise program NOT MET 10. Good static and dynamic standing balance/tolerance NOT MET DISCHARGE RECOMMENDATIONS: Patient will benefit from custodial facility placement in order to progress mobility level, strength, and balance in preparation for a safe discharge to home. He will benefit from the use of a front wheeled walker in order to maximize functional mobility and independence and reduce risk for falls at discharge destination. TREATMENT CODE/TIME: NC. Thank you very much for this referral. With the supervision of: Ronda Ledesma PT, DPT, CLT [facility]
== END 2018-11-13 21:14 | disposition short-term general hospital (02) | DRG 64 ==
LOC: ER 16:31 → MS 17:51
PROVIDERS: Family Medicine; Psychiatry & Neurology Neurology; Admitting Provider Internal Medicine; Emergency Provider Physician Assistant; PCP Nurse Practitioner; Visit Provider Internal Medicine
DX: I63.231 Cerebral infarction due to unspecified occlusion or stenosis of right carotid arteries (principal); I63.511 Cerebral infarction due to unspecified occlusion or stenosis of right middle cerebral artery; G81.94 Hemiplegia, unspecified affecting left nondominant side; I50.22 Chronic systolic (congestive) heart failure; E87.1 Hypo-osmolality and hyponatremia; H53.142 Visual discomfort, left eye; R29.810 Facial weakness; I11.0 Hypertensive heart disease with heart failure; M50.21 Other cervical disc displacement, high cervical region; R51 Headache; I35.0 Nonrheumatic aortic (valve) stenosis; I25.10 Atherosclerotic heart disease of native coronary artery without angina pectoris; I25.2 Old myocardial infarction; I48.0 Paroxysmal atrial fibrillation; J44.9 Chronic obstructive pulmonary disease, unspecified; Z87.891 Personal history of nicotine dependence; Z71.3 Dietary counseling and surveillance; E11.9 Type 2 diabetes mellitus without complications; Z79.84 Long term (current) use of oral hypoglycemic drugs
CPT/HCPCS: 36415; 70496; 70498; 70544; 80048; 80053; 80061; 85027; 87798; 93005; 93306; 94640; 97110; 97162; 97167; 97530; 97535; 99215; 99223; 99232; 99233; 99239; 99285; 70450; 70551; 71046; 72141; 81003; 82607; 83036; 83735; 84443; 84484; 85025; 85610; 85730; 86618; 93010; 99220; 99225; G0378; J1885; J3490

== ENCOUNTER → 2018-11-09 08:35 | Outpatient (BNVA) | payer MEDICARE, SELFPAY | PROVIDERS: PCP Nurse Practitioner; Visit Provider Psychiatry & Neurology Neurology | DX: R69 Illness, unspecified (principal) ==

== ENCOUNTER 2019-03-31 02:31 | Outpatient (CLI) | payer MEDICARE, SELFPAY ==
[2019-03-31 13:16] LABS: Calculated LDL 92 mg/dL (<100); Cholesterol 144 mg/dL (<200); HDL Cholesterol 45 mg/dL (40-60); Triglyceride 36 mg/dL (<150)
[2019-03-31 13:20] LABS: Hemoglobin A1C 7.3 % (3.8-5.6)
== END 2019-03-31 02:51 ==
PROVIDERS: PCP Nurse Practitioner; Visit Provider Nurse Practitioner
DX: E11.9 Type 2 diabetes mellitus without complications (principal); N40.0 Benign prostatic hyperplasia without lower urinary tract symptoms; Z80.42 Family history of malignant neoplasm of prostate; Z12.5 Encounter for screening for malignant neoplasm of prostate; Z13.6 Encounter for screening for cardiovascular disorders
CPT/HCPCS: 36415; 80061; 84153; 83036

== ENCOUNTER 2019-10-05 03:50 | Outpatient (CLI) | payer MEDICARE, SELFPAY ==
[2019-10-06 08:59] LABS: PSA, Screening 0.9 ng/mL (0.0-6.5)
== END 2019-10-05 04:10 ==
PROVIDERS: PCP Nurse Practitioner; Visit Provider Nurse Practitioner
DX: E11.9 Type 2 diabetes mellitus without complications (principal); Z12.5 Encounter for screening for malignant neoplasm of prostate; N40.0 Benign prostatic hyperplasia without lower urinary tract symptoms
CPT/HCPCS: 36415; 84153; 83036

== ENCOUNTER 2020-06-26 01:08 | Outpatient (CLI) | payer MEDICARE, SELFPAY ==
--- NOTE | 2020-06-26 08:45 | DI.NM_ITS ---
APPROVED REPORT Exam: Pharmacologic paired with low level exercise Patient Location: Out-Patient Room/Bed: Stress Nurse: Anushka Mesa RN Ordering Provider:MADELEINE SUNSHINE, Contact Number: [phone] BMI: 28.73 Baseline Rhythm: Sinus Rhythm Comment: Inverted T waves in leads II, III, aVF, V5, V6. Frequent PVCs and couplets Indications: CHEST PAIN, CORONARY ARTERY DISEASE, CARDIOMYOPATHY. Medical History Medical History: ASCVD, DM, HTN, Ischemic stroke, NSTEMI, STEMI, Cardiomyopathy, Systolic HF (EF 30-3 5%), Carotid stenosis, pAF, COPD, GERD, HLD. Cardiac Medications: Albuterol sulfate, Ezetimibe, Metformin, Metoprolol tartrate, Omeprazole, Simvas tatin, Tiotropium-olodaterol, Nitro SL Allergies: Celecoxib, Rosuvastatin, Atorvastatin, Codeine phosphate Cardiac Risk Factors: FHX of CAD, HTN, Hyperlipidemia, Diabetes (non-insulin), CVD, Smoking (former) Previous Cardiac Procedures: CABG x 3 Pretest Chest Pain Characteristics: No chest pain Exercise History: Sedentary Physical Disabilities: None Lung Sounds: Coarse bibasilar lung sounds, LCTA upper airway Heart Sounds: Regular Stress Test Details Test: Pharmacologic stress was paired with low level exercise. Reason for pharmacologic stress test: physical limitation. Nuclear Acquisition: Rest Tc-99m/Stress Tc-99m 1 day Rest Isotope: Tc-99m Sestamibi. Dose: 11.8 Date: 06/26/2020 Injection Time: 0845 Stress Isotope: Tc-99m Sestamibi. Dose: 38.0 Date: 06/26/2020 Injection Time: 1030 HR Resting HR Supine: 86 bpm Max Heart Rate (APMHR): 145.614266 bpm Resting HR Standin bpm Target HR (85% APMHR): 123.107217 bpm Max HR Achieved: 124 bpm % of APMHR: 85.52 Recovery HR: 98 bpm BP Resting BP Supine: 136/72 mmHg Resting BP Standin/70 mmHg Max BP: 140/70 mmHg Recovery BP: 140/70 mmHg ECG Resting ECG: Sinus Rhythm, inverted T waves in leads II, III, aVF, V5, V6 Ectopy: frequent PVCs, couplets Stress ECG: Sinus Tachycardia, inverted T waves in leads II, III, aVF, V5, V6, Maximum ST Deviation: 1 mm Arrhythmia: frequent PVCs, couplets, PACs Recovery ECG: Sinus Tachycardia, inverted T waves in leads II, III, aVF, V5, V6, Recovery Arrhythmia: frequent PVCs, couplets Clinical Stress Symptoms: Dyspnea Rate Pressure Product: [id number] Stress ECG Conclusion 1. This is a pharmacological stress test. Their baseline ST abnormalities. 2. EKG portion of this exam is nondiagnostic. Stress Test Summary STAGE HR BP Symptoms NOTES Supine 86 136/72 1 min post Lexiscan injection 120 128/76 Dyspnea. 3 min post Lexiscan injection 118 120/68 Dyspnea resolved. 6 min post Lexiscan injection 106 140/70 Standing 96 130/70 Lexiscan injection paired with exercise at 0.5 mph, 0% grade. MPI Conclusion Ejection fraction was 34% with stress. There was global hypokinesis. There is a moderate sized nonreversible perfusion defect of the inferior wall suggestive of scar. Radiologist Interpretation Radiologist agrees with Compacting Machine Operator/Tender's Interpretation. Radiologist Interpretation by: Bob Ramires MD Interpretation Date/Time: 06/27/2020 12:06:30
[2020-06-26] MEDS: Regadenoson 0.4 MG/5 ML SYR IVP (10:47)
== END 2020-06-26 01:28 ==
PROVIDERS: PCP Nurse Practitioner; Visit Provider Internal Medicine Cardiovascular Disease
DX: R07.9 Chest pain, unspecified (principal); I25.110 Atherosclerotic heart disease of native coronary artery with unstable angina pectoris; Z82.49 Family history of ischemic heart disease and other diseases of the circulatory system; I10 Essential (primary) hypertension; E78.5 Hyperlipidemia, unspecified; E11.9 Type 2 diabetes mellitus without complications; Z87.891 Personal history of nicotine dependence; I49.3 Ventricular premature depolarization; I49.1 Atrial premature depolarization
CPT/HCPCS: 78452; 93016; 93018; 93017; J2785

== ENCOUNTER 2020-09-01 03:01 | Outpatient (CLI) | payer OTHER, SELFPAY ==
--- NOTE | 2020-09-01 | DI.US_ITS ---
APPROVED REPORT EXAM: Comprehensive 2D, Doppler, and color-flow Echocardiogram Patient Location: Out-Patient Beam Warper: Savannah Granda RDCS (AE) Indications: Ischemic Cardiomyopathy Conclusion Left Ventricle : The left ventricle is normal size. Left ventricular systolic function is mildly decr eased. There is normal left ventricular wall thickness. There is global hypokinesis of the left ventr icle. LVEF is 41%. Right Ventricle : The right ventricle is normal size. The right ventricular systolic function is norm al. The RVSP is 20.5mmHg. Atria : The left atrium size is normal. The right atrium size is normal. Mitral Valve : The mitral valve is moderately thickened but opens well. Mild mitral annular calcifica tion. Mild to moderate mitral regurgitation. No evidence of mitral valve stenosis. Great Vessels : The aortic root is normal in size. The ascending aorta is mildly dilated. Aortic arch is not well visualized. IVC is normal in size and collapses >50% with inspiration. Please see remainder of study for further details. Compared to echocardiogram from 11/09/2018, kimberly t's ejection fraction has improved slightly from 35% to 41%. Wall motion Left Ventricle The left ventricle is normal size. Left ventricular systolic function is mildly decreased. There is n ormal left ventricular wall thickness. There is global hypokinesis of the left ventricle. There is no ventricular septal defect visualized. LVEF is 41%. Right Ventricle The right ventricle is normal size. The right ventricular systolic function is normal. The RVSP is 20 .5mmHg. Atria The left atrium size is normal. The right atrium size is normal. The interatrial septum is intact wit h no evidence for an atrial septal defect. Aortic Valve The Aortic valve is sclerotic. There is no aortic valvular stenosis. Trace to mild aortic regurgitati on. Mitral Valve The mitral valve is moderately thickened but opens well. Mild mitral annular calcification. No eviden ce of mitral valve stenosis. Mild to moderate mitral regurgitation. Tricuspid Valve The tricuspid valve is normal in structure. There is no tricuspid valve stenosis. Trace tricuspid reg urgitation. Pulmonic Valve The pulmonary valve is normal in structure. There is no pulmonic valvular stenosis. There is no pulmo mikayla valvular regurgitation. Great Vessels The aortic root is normal in size. The ascending aorta is mildly dilated. Aortic arch is not well vis ualized. IVC is normal in size and collapses >50% with inspiration. Pericardium There is no pericardial effusion. 2D Dimensions IVSD d PLAX 1.00 cm M: 0.6-1.2 LV Vol A2C d MOD 122.5 mL LVPW d PLAX 1.04 cm M: 0.6 - 1.2 LV Vol A4C d MOD 168.8 mL LVID d PLAX 5.34 cm M: 4.2 - 5.8 LA vol/ BSA A2C s A-L 28.6 mL/m2 LVDs 4.05 cm M: 2.5 - 4.0 LA vol/ BSA A4C s A-L 37.9 mL/m2 Ao Root d 3.38 cm M: 3.1 - 3.7 LA Vol/ BSA Biplane s A-L 34.4 mL/m2 RA Area A4C 11.73 cm2 LA Area A4C s MOD 23.57 cm2 RA Vol/ BSA A4C s A-L 13.4 mL/m2 LA Area A2C s MOD 19.62 cm2 Ao Asc Diam d 3.80 cm M: 2.6 - 3.4 LV EF A4C MOD 40.6 % LV EF Teichholz 46.4 % LV EF A2C MOD 41.3 % LVEF (Chavez's) 37.99 % M: 52 - 72 LV EF Biplane MOD 38.0 % LV Volume 108.39 mL M: 62 - 150 SV 55.09 mL LV Volume Index 53.65 mL/m2 M: 34 - 74 SV Index 27.26 mL/m2 LV Vol Biplane MOD 145.0 mL FS 23.40 % M-Mode TAPSE 1.56 cm (M/F) >1.7 LV Diastology MV E' medial 0.063 (>0.07 m/s) E/A Ratio 1.4 LV E/e MED 11.45 (<14) MV E Vmax 0.72 (0.4-1.3 m/s) MV E' lateral 0.088 (>0.1 m/s) MV A Vmax 0.50 (0.4-1.3 m/s) LV E/e LAT 8.15 (<14) MV E/A Ratio 1.33 MV E/E' medial 11.49 MV E/E' lateral 8.19 Aortic Valve LVOT Area 3.08 cm2 AoV Area Vmax 2.62 cm2 LVOT Vmax 0.94 m/s AoV Area/ BSA (Vmax) 1.29 cm2/m2 LVOT Mean Ruslan. 0.65 m/s TOBY Mean Ruslan. 2.40 cm2 LVOT Peak Grad 3.5 mmHg TOBY Mean Ruslan. Index 1.19 cm2/m2 LVOT Mean Grad 1.9 mmHg AR DT 1750 msec LVOT VTI 0.205 m AR PHT 507 msec LVOT Diam s 1.95 cm AoV Vmax 1.10 m/s Velocity Ratio 0.85 AoV Mean Ruslan. 0.84 m/s AoV Peak Grad 4.9 mmHg LVOT SV 63.25 mL AoV Mean Grad 3.0 mmHg AoV VTI 0.269 m AoV Area VTI 2.35 cm2 AoV Area/ BSA (VTI) 1.16 cm/m2 Mitral Valve MV DT 255 (160-240 msec) MR Vmax 5.45 m/s MV PHT 74 msec MR VTI 2.016 m MV Area PHT 2.98 cm2 MR Peak Grad 118.9 mmHg MV VTI 0.293 m MR Mean Grad 78.6 mmHg MV VTI Annulus 0.280 m MR PISA Radius 0.39 cm MV Area VTI 2.07 (4.0-6.0 cm2) MR EROA 0.06 cm2 MR Aliasing Velocity 0.35 m/s MR PISA 0.94 cm2 Pulmonary Valve PV Vmax 0.81 (0.5-1.5 m/s) RVOT Peak Gr. 1.51 mmHg PV Peak Grad 2.6 mmHg RVOT Mean Gr. 0.90 mmHg PV Mean Grad 1.6 mmHg RVOT VTI 0.136 m PV VTI 0.198 m RVOT Vmax 0.61 m/s Tricuspid Valve TR Peak Grad 17.5 mmHg TR Vmax 2.09 m/s RA Pressure 3.00 mmHg RVSP (TR) 20.5 mmHg
== END 2020-09-01 03:21 ==
PROVIDERS: PCP Nurse Practitioner; Visit Provider Internal Medicine Cardiovascular Disease
DX: I25.5 Ischemic cardiomyopathy (principal); I34.0 Nonrheumatic mitral (valve) insufficiency; I77.810 Thoracic aortic ectasia
CPT/HCPCS: 93306

== ENCOUNTER 2020-10-31 01:09 | Outpatient (CLI) | payer OTHER, SELFPAY ==
[2020-10-31 12:33] LABS: Hemoglobin A1C 6.1 % (<5.7)
[2020-10-31 12:34] LABS: BUN 15 mg/dL (7-18); Calcium 9.3 mg/dL (8.5-10.1); Calculated LDL 75 mg/dL (<100); Chloride 96 mmol/L (98-107); Cholesterol 139 mg/dL (<200); Glucose 125 mg/dL (74-106); HDL Cholesterol 57 mg/dL (40-60); Potassium 5.5 mmol/L (3.5-5.1); Sodium 127 mmol/L (136-145); Triglyceride 38 mg/dL (<150)
[2020-10-31 22:36] LABS: PSA, Screening 0.6 ng/mL (0.0-6.5)
== END 2020-10-31 01:10 | disposition home or self-care (01) ==
LOC: LOS 01:10
PROVIDERS: PCP Nurse Practitioner; Visit Provider Nurse Practitioner
DX: E11.9 Type 2 diabetes mellitus without complications (principal); E87.1 Hypo-osmolality and hyponatremia; I10 Essential (primary) hypertension; I25.10 Atherosclerotic heart disease of native coronary artery without angina pectoris; I50.22 Chronic systolic (congestive) heart failure; Z12.5 Encounter for screening for malignant neoplasm of prostate
CPT/HCPCS: 36415; 80048; 80061; 84153; 83036

== ENCOUNTER 2020-11-06 07:54 | Outpatient (CLI) | payer OTHER, SELFPAY ==
[2020-11-06 12:38] LABS: Anion Gap 8.9 mmol/L (3-11); BUN 11 mg/dL (7-18); CO2 25.1 mmol/L (21.0-32.0); CREATININE 0.9 mg/dL (0.70-1.30); Chloride 95 mmol/L (98-107); Glucose 141 mg/dL (74-106); Potassium 4.8 mmol/L (3.5-5.1); Sodium 129 mmol/L (136-145)
== END 2020-11-06 07:55 | disposition home or self-care (01) ==
PROVIDERS: PCP Nurse Practitioner; Visit Provider Nurse Practitioner
DX: E87.1 Hypo-osmolality and hyponatremia (principal)
CPT/HCPCS: 36415; 80048

== ENCOUNTER 2020-11-15 01:43 | Outpatient (CLI) | payer OTHER, SELFPAY ==
--- NOTE | 2020-11-15 08:45 | DI.CT_ITS ---
Exam(s) CT CHEST WO EXAM: CT CHEST WO CLINICAL HISTORY: Screening for lung cancer,former smoker,[id number],. TECHNIQUE: Multi planar reconstructions were performed. CONTRAST MATERIAL: None COMPARISON: CT CT CHEST/ABD/PEL W from 02/24/2018 FINDINGS: CHEST: LUNGS: Mild focal pleural thickening over the posterior aspect of the right upper lobe is unchanged f rom 2019. No new right lung nodules. No pleural effusion. In the opposite-left lung there are no new significant nodules. No pleural effusion. No findings in trachea and mainstem bronchi. MEDIASTINUM: There is no obvious hilar nor mediastinal adenopathy. No obvious axillary adenopathy CARDIAC: Sternotomy wires. Heart size normal. No pericardial effusion. Heavy coronary artery calci fication.Caliber of the thoracic aorta is within normal limits. VISUALIZED UPPER ABDOMEN:Cholelithiasis. Abdominal aortic aneurysm. No significant adrenal masses OSSEOUS: No significant osseous lesions.. IMPRESSION: 1. Minimal if any significant change compared to 02/24/2018. 2. Mild benign-appearing lung findings. No pleural effusions. No obvious intrathoracic adenopathy. 3. Sternotomy wires. Coronary artery calcification. RADIATION DOSE DELIVERED: 614.19mGy.cm Total DLP DATA REPOSITORY: All CT scans at this facility are submitted to the National Radiology Data Registry (NRDR) Dose Index Registry (DIR) with the [employer] (ACR). RADIATION OPTIMIZATION: All CT scans at this facility use at least one of these dose optimization te chniques: automated exposure control; mA and/or kV adjustment per patient size (includes targeted exa ms where dose is matched to clinical indication); or iterative reconstruction.
== END 2020-11-15 02:03 ==
PROVIDERS: PCP Nurse Practitioner; Visit Provider Nurse Practitioner
DX: Z87.891 Personal history of nicotine dependence (principal); Z12.2 Encounter for screening for malignant neoplasm of respiratory organs
CPT/HCPCS: 71250

== ENCOUNTER → 2021-05-24 08:43 | Outpatient (CLI) | payer OTHER, SELFPAY ==
--- NOTE | 2021-05-24 06:45 | DI.US_ITS ---
APPROVED REPORT EXAM: Comprehensive 2D, Doppler, and color-flow Echocardiogram Patient Location: Out-Patient Fiscal Assistant: Savannah Granda RDCS (AE) Indications: Cardiomyopathy, HTN Other Information Study Quality: Adequate Conclusion Normal left ventricular wall thickness and chamber size. Estimated ejection fraction is 45 to 50%. There is mild global hypokinesis Normal right ventricular size and systolic function Both atria are normal in size The aortic valve is sclerotic and probably trileaflet. There is mild aortic regurgitation Moderately thickened mitral leaflets. Mild to moderate mitral regurgitation Normal tricuspid valve with trace regurgitation. Right ventricular systolic pressure could not be es timated Wall motion Left Ventricle The left ventricle is normal size. Left ventricular systolic function is mildly decreased. There is n ormal left ventricular wall thickness. There is global hypokinesis of the left ventricle. There is no ventricular septal defect visualized. LVEF is 45-50%. Right Ventricle Right ventricle is grossly normal in size. Right ventricular systolic function is grossly normal. Atria The left atrium size is normal. The right atrium size is normal. The interatrial septum is intact wit h no evidence for an atrial septal defect. Aortic Valve The Aortic valve is sclerotic. Aortic valve is probably trileaflet. There is no aortic valvular steno sis. Mild aortic regurgitation. Mitral Valve Mitral valve leaflets are moderately thickened. No evidence of mitral valve stenosis. Mild to moderat e mitral regurgitation. Tricuspid Valve The tricuspid valve is normal in structure. There is no tricuspid valve stenosis. Trace tricuspid reg urgitation. Unable to assess PA pressure. Pulmonic Valve Pulmonic valve is not well visualized. There is no pulmonic valvular stenosis. There is no pulmonic v alvular regurgitation. Great Vessels The aortic root is normal in size. Ascending aorta is not well visualized. Aortic arch is not well vi sualized. IVC is normal in size and collapses >50% with inspiration. Pericardium There is no pericardial effusion. 2D Dimensions IVSD d PLAX 1.00 cm M: 0.6-1.2 LV Vol A2C d MOD 96.7 mL LVPW d PLAX 1.00 cm M: 0.6 - 1.2 LV Vol A4C d MOD 140.7 mL LVID d PLAX 5.30 cm M: 4.2 - 5.8 LA vol/ BSA A2C s A-L 27.4 mL/m2 LVDs 4.25 cm M: 2.5 - 4.0 LA vol/ BSA A4C s A-L 23.2 mL/m2 Ao Root d 3.35 cm M: 3.1 - 3.7 LA Vol/ BSA Biplane s A-L 26.0 mL/m2 RA Area A4C 15.19 cm2 LA Area A4C s MOD 17.09 cm2 RA Vol/ BSA A4C s A-L 22.0 mL/m2 LA Area A2C s MOD 17.98 cm2 LV EF Teichholz 39.9 % LV EF A4C MOD 40.5 % LVEF (Chavez's) 40.68 % M: 52 - 72 LV EF A2C MOD 40.9 % LV Volume 89.56 mL M: 62 - 150 LV EF Biplane MOD 40.7 % LV Volume Index 46.40 mL/m2 M: 34 - 74 SV 48.01 mL LV Vol Biplane MOD 118.0 mL SV Index 24.86 mL/m2 FS 19.55 % M-Mode TAPSE 1.57 cm (M/F) >1.7 LV Diastology MV E' medial 0.050 (>0.07 m/s) E/A Ratio 0.8 LV E/e MED 14.35 (<14) MV E Vmax 0.71 (0.4-1.3 m/s) MV E' lateral 0.072 (>0.1 m/s) MV A Vmax 0.85 (0.4-1.3 m/s) LV E/e LAT 9.95 (<14) MV E/A Ratio 0.80 MV E/E' medial 14.36 MV E/E' lateral 9.95 Aortic Valve LVOT Area 2.87 cm2 AoV Area Vmax 2.51 cm2 LVOT Vmax 1.04 m/s AoV Area/ BSA (Vmax) 1.30 cm2/m2 LVOT Mean Ruslan. 0.75 m/s TOBY Mean Ruslan. 2.32 cm2 LVOT Peak Grad 4.3 mmHg TOBY Mean Ruslan. Index 1.20 cm2/m2 LVOT Mean Grad 2.5 mmHg AR DT 1697 msec LVOT VTI 0.234 m AR PHT 492 msec LVOT Diam s 1.90 cm AoV Vmax 1.19 m/s Velocity Ratio 0.87 AoV Mean Ruslan. 0.93 m/s AoV Peak Grad 5.7 mmHg LVOT SV 67.38 mL AoV Mean Grad 3.7 mmHg AoV VTI 0.294 m AoV Area VTI 2.29 cm2 AoV Area/ BSA (VTI) 1.19 cm/m2 Mitral Valve MV DT 220 (160-240 msec) MV PHT 64 msec MV Area PHT 3.45 cm2 MV VTI 0.324 m MV Area VTI 2.08 (4.0-6.0 cm2) Pulmonary Valve PV Vmax 1.22 (0.5-1.5 m/s) RVOT Peak Gr. 0.90 mmHg PV Peak Grad 6.0 mmHg RVOT Mean Gr. 0.45 mmHg PV Mean Grad 2.8 mmHg RVOT VTI 0.098 m PV VTI 0.216 m RVOT Vmax 0.47 m/s
== END ==
PROVIDERS: PCP Nurse Practitioner; Visit Provider Family Medicine
DX: I10 Essential (primary) hypertension (principal); I42.9 Cardiomyopathy, unspecified
CPT/HCPCS: 93306

== ENCOUNTER 2021-07-13 13:07 | Outpatient (CLI) | payer OTHER, SELFPAY ==
--- NOTE | 2021-07-13 13:00 | RT.EKG_ITS ---
APPROVED REPORT Exam: Resting ECG Reason for Exam: HF Patient Location: O HR:71 bpm ECG Measurements Heart Rate 71 AXIS NV 197 P 85 QRSd 101 QRS 50 QT 388 T 224 QTc 422 Conclusion Sinus rhythm...normal P axis, V-rate 50- 99 Probable LVH with secondary repol abnrm...multiple LVH criteria Baseline wander in lead(s) V3
== END 2021-07-13 13:08 | disposition home or self-care (01) ==
LOC: DI.CARD 13:09
PROVIDERS: PCP Nurse Practitioner; Visit Provider Internal Medicine Cardiovascular Disease
DX: I21.3 ST elevation (STEMI) myocardial infarction of unspecified site (principal); I25.10 Atherosclerotic heart disease of native coronary artery without angina pectoris; I48.0 Paroxysmal atrial fibrillation; I50.20 Unspecified systolic (congestive) heart failure
CPT/HCPCS: 93010

== ENCOUNTER → 2021-07-13 13:31 | Outpatient (BNVA) | payer OTHER, SELFPAY | PROVIDERS: PCP Nurse Practitioner; Referring Provider Nurse Practitioner; Visit Provider Internal Medicine Cardiovascular Disease | DX: I25.10 Atherosclerotic heart disease of native coronary artery without angina pectoris (principal); I42.9 Cardiomyopathy, unspecified; I10 Essential (primary) hypertension | CPT/HCPCS: 93005; 99203; 99214 ==

== ENCOUNTER → 2021-07-20 10:31 | Outpatient (BNVA) | payer OTHER, SELFPAY | PROVIDERS: PCP Nurse Practitioner; Referring Provider Nurse Practitioner; Visit Provider Physical Therapy Assistant | DX: R19.4 Change in bowel habit (principal) | CPT/HCPCS: 99214 ==

== ENCOUNTER 2021-08-03 09:13 | Day surgery (SDC) | payer OTHER, SELFPAY ==
--- NOTE | 2021-08-02 23:38 | W.COLOREPORT ---
Colonoscopy Report Date of procedure: 08/03/21 Pre-op diagnosis general: chnages in bowel habits/wt loss Surgeon: Kriss Alva Anesthesia Type: General:No Airway Estimated blood loss (mL): 0 Pathology: none sent Complications: None Disposition: same day Prep: Miralax/Dulcolax Retraction Time: 8 Procedure Description: After informed consent was obtained the patient was taken to the procedure room and placed in a left decubitous position. Monitors were applied and a time out was done. The patients name, date of , procedure, allergies to medications and metal in their body was reviewed. The patient was then sedated. Once sedated and comfortable a rectal exam was done. External exam was normal. Internal exam revealed a normal sphincter tone and no palpable masses. The scope was then introduced and retrofelexed. No internal hemorrhoids were identified. The scope was then advanced to the cecum with moderate difficulty. The TI and appendiceal orifice were identified. The prep was BB PS 1 in all segments for a total of 9.. The scope was then slowly retracted over 8 minutes back into the rectum. There are no AVMs, diverticula, or polyps visualized today. The mucosa is pink and healthy. The colon is extremely tortuous and redundant. The scope was removed and the patient was woken up and taken back to Same day surgery in stable condition. The patient tolerated the procedure well and there were no immediate complications. Follow up: The patient does not require further colonoscopies, unless they develop changes in bowel habits or other new gastrointestinal complaints.
--- NOTE | 2021-08-02 23:39 | PDOC.DSDIS_ITS ---
Discharge Plan Disposition Patient Disposition: HOME Condition: Good Discharge Details Reason For Visit: colon scope Attending Provider: Kriss Alva Primary Care Provider: Christel Godoy Home Meds and New Rx's Prescriptions: Continued albuterol sulfate [ProAir HFA] 90 mcg/actuation HFA aerosol inhaler 2 puff Inhalation Q4H PRN Qty: 3 4RF ibuprofen 800 mg tablet 800 mg PO DAILY PRN (Reason: back pain) Qty: 90 0RF fluticasone propionate [Flonase Allergy Relief] 50 mcg/actuation spray,suspension 2 spray DANDY DAILY Qty: 54.6 3RF cholecalciferol (vitamin D3) 10 mcg (400 unit) capsule 10 mcg PO DAILY Fish Oil 120-180 mg capsule 1 cap PO DAILY ascorbic acid (vitamin C) 500 mg capsule 500 mg PO DAILY diphenhydramine-acetaminophen [Tylenol PM Extra Strength] 25-500 mg tablet 1 tab PO QHS PRN venlafaxine 75 mg capsule,extended release 24hr 75 mg PO DAILY Qty: 90 4RF aspirin 81 MG tablet,delayed release (DR/EC) 81 mg PO HS Label Comments: 01/10/15 325 mg daily. si acetaminophen 500 mg capsule 1,000 mg PO Q6H PRN multivitamin Tablet 1 tab PO DAILY nitroglycerin [Nitrostat] 0.4 mg tablet, sublingual 0.4 mg sublingual Q5M PRN (Reason: chest pain) Qty: 30 0RF All Day Allergy (cetirizine) 10 mg capsule 10 mg PO DAILY Qty: 90 3RF ezetimibe [Zetia] 10 mg tablet 10 mg PO DAILY Qty: 90 3RF Rx Instructions: one pill WITH Simvastatin (for cholesterol) metformin 1,000 mg tablet 1,000 mg PO BID Qty: 180 3RF metoprolol tartrate 25 mg tablet 12.5 mg PO BID Qty: 180 3RF omeprazole 40 mg capsule,delayed release(DR/EC) 40 mg PO DAILY Qty: 90 3RF simvastatin 40 mg tablet 40 mg PO HS Qty: 90 3RF Rx Instructions: one pill with the Zetia tamsulosin [Flomax] 0.4 mg capsule 0.4 mg PO QHS Qty: 90 3RF (DME) blood sugar diagnostic Strip See Rx Instructions .ROUTE .MEDSUPPLY Qty: 50 11RF Rx Instructions: daily checks (DME) lancets [OneTouch Delica Plus Lancet] 30 gauge misc See Rx Instructions .ROUTE .MEDSUPPLY Qty: 100 4RF Rx Instructions: once daily fluticasone propionate [Flovent HFA] 110 mcg/actuation HFA aerosol inhaler 2 puff inhalation BID Qty: 36 4RF Discontinued bisacodyl [Dulcolax (bisacodyl)] 5 mg tablet,delayed release (DR/EC) 5 mg PO ONCE Qty: 4 0RF Rx Instructions: Take according to provider's instructions for colonoscopy prep. polyethylene glycol 3350 17 gram/dose powder 17 g PO ONCE Qty: 238 0RF Rx Instructions: To be taken as directed by prescriber's office for colonoscopy prep. Discharge Instructions Additional Instructions: D[facility] Colonoscopy Post- Op Instructions Instructions for Everyone who is given Anesthesia: For your safety, please do the following for the next twenty-four (24) hours: *Do Not operate a motor vehicle (car, truck, motorcycle, etc.) *Do Not drink alcoholic beverages or use any recreational drugs for the first 24 hours or while taking pain medications. The medications in your body may have a reaction that can be dangerous. *Do Not make any important decisions or sign any important papers. Findings: normal Recommendations: -Start of fiber such limits such as Benefiber or Citrucel daily See handout 1. No lifting over 20 pounds or strenuous activity for the first 24 hours after your procedure. After 24 hours there are no restrictions on your activity but you may feel fatigued for a few days. 2. After you arrive home you may have a light meal and return to your normal diet as you can tolerate it without feeling sick to your stomach. 3. You may have a bloated, gaseous feeling in your belly (abdomen) after a colonoscopy. Passing gas and belching will help. Walking or lying down on your left side with your knees flexed may relieve the discomfort. Call the office at [phone] (Office) or [phone] (Hospital) right away if you notice any of the following: a.Vomiting of blood or ?coffee ground stools?. b.Rectal bleeding 1Tbsp, blood clots or continuous bleeding. c.Severe belly (abdominal) pain. d.A hard distended belly (abdomen) and an inability to pass gas. 4. Please don?t expect to have a normal BM (bowel movement) for 2-3 days after your procedure. 5. If there are questions regarding the findings of your procedure, please contact your doctor 6. If you are unable to contact your doctor with a problem, contact the hospital at [phone]. 7. Continue all your regular medications unless directed otherwise. I understand the above instructions and have no questions. Signature of Patient or Adult Escort Name of Responsible Adult Escort Signature of Nurse Date/Time Stand Alone Forms: Etelvina Hood (DSU) Activity:: see above Diet:: see above Discharge Orders Discharge Orders: Discharge Order (Routine); Ordered 08/02/21 Ordered By: Kriss Alva
[2021-08-03 09:25] VITALS: BP 151/84; PULSE 66; RESP 18; TEMP 36.7; O2SAT 99
[2021-08-03] MEDS: Lactated Ringers 1,000 ML 80 ML IV (09:57)
--- NOTE | 2021-08-03 10:13 | W.ANESPRE ---
General Info Date of Service Date Performed: 08/03/21 Height: 5 ft 9 in Weight: 80.1 kg Body Mass Index (BMI): 26.0 Surgical Procedure: Operation Date: 08/03/21 09:50 Proposed Procedure Side Surgeon raul Alva, DO Meds Allergies and Home Medications Allergies Allergy/AdvReac Type Severity Reaction Status Date / Time celecoxib Allergy Severe SWELLING Verified 08/03/21 09:41 codeine phosphate Allergy Unknown Anaphylaxis, Verified 08/03/21 09:43 [From Robitussin A-C] flashes, unable to breathe rosuvastatin calcium AdvReac Severe DIARRHEA Verified 08/03/21 09:41 [From Crestor] atorvastatin AdvReac Intermediate myalgia Verified 08/03/21 09:41 seasonal Allergy Mild Uncoded 08/03/21 09:41 Home Medication Medication Instructions Recorded aspirin 81 mg tablet,delayed 81 mg PO HS 06/25/13 release acetaminophen 500 mg capsule 1,000 mg PO Q6H PRN 10/21/18 multivitamin 1 tab PO DAILY 10/21/18 albuterol sulfate 90 mcg/actuation 2 puff inhalation Q4H PRN ##3 10/07/19 aerosol inhaler (ProAir HFA) fluticasone propionate 50 2 spray intranasal DAILY #54.6 mL 10/07/19 mcg/actuation nasal spray,suspension (Flonase Allergy Relief) ibuprofen 800 mg tablet 800 mg PO DAILY PRN back pain #90 10/07/19 tabs nitroglycerin 0.4 mg sublingual 0.4 mg sublingual Q5M PRN chest 10/08/19 tablet (Nitrostat) pain #30 tabs cetirizine 10 mg capsule (All Day 10 mg PO DAILY #90 caps 09/19/20 Allergy (cetirizine)) ezetimibe 10 mg tablet (Zetia) 10 mg PO DAILY #90 tab-caps 09/19/20 metformin 1,000 mg tablet 1,000 mg PO BID #180 tabs 09/19/20 metoprolol tartrate 25 mg tablet 12.5 mg PO BID #180 tabs 09/19/20 omeprazole 40 mg capsule,delayed 40 mg PO DAILY #90 caps 09/19/20 release simvastatin 40 mg tablet 40 mg PO HS #90 tab-caps 09/19/20 tamsulosin 0.4 mg capsule (Flomax) 0.4 mg PO QHS #90 caps 09/19/20 blood sugar diagnostic #50 ea 01/30/21 lancets 30 gauge (OneTouch Delica #100 ea 02/08/21 Plus Lancet) ascorbic acid (vitamin C) 500 mg 500 mg PO DAILY 05/08/21 capsule cholecalciferol (vitamin D3) 10 10 mcg PO DAILY 05/08/21 mcg (400 unit) capsule docosahexaenoic acid (dha)-epa 120 1 cap PO DAILY 05/08/21 mg-180 mg capsule (Fish Oil) fluticasone propionate 110 2 puff inhalation BID #36 grams 05/09/21 mcg/actuation HFA aerosol inhaler (Flovent HFA) diphenhydramine 25 1 tab PO QHS PRN 06/08/21 mg-acetaminophen 500 mg tablet (Tylenol PM Extra Strength) venlafaxine 75 mg capsule,extended 75 mg PO DAILY #90 caps 06/08/21 release 24 hr bisacodyl 5 mg tablet,delayed 5 mg PO ONCE #4 tabs 07/26/21 release (Dulcolax (bisacodyl)) polyethylene glycol 3350 17 17 g PO ONCE #238 grams 07/26/21 gram/dose oral powder Current Visit Medications: Current Medications Generic Name Dose Route Start Last Admin Trade Name Freq PRN Reason Stop Dose Admin Hyoscyamine Sulfate 0.125 mg 08/02/21 23:35 Hyoscyamine 0.125 Mg Sl/Oral/Chew SL DIRECTED PRN Ringer's Solution 1,000 mls @ 80 mls/hr 08/03/21 06:00 08/03/21 09:57 IV 09/01/21 23:59 80 mls/hr INFUSION JAMSHID Administration IV Miscellaneous Supplies 1 each 08/03/21 06:00 Iv Access IV 09/01/21 23:59 DIRECTED JAMSHID Ondansetron HCl 4 mg 08/02/21 23:35 Ondansetron 4 Mg/2 Ml Vial IVP Q4H PRN PRN Nausea / Vomiting Sodium Chloride 0 ml 08/03/21 06:00 Normal Saline Flush 10 Ml Syr IV 09/01/21 23:59 PRN PRN Sodium Chloride 0 ml 08/03/21 06:00 Normal Saline 10 Ml Vial IJ 07/16/22 23:59 DIRECTED PRN Sterile Water 0 ml 08/03/21 06:00 Water,Injection,Sterile 10 Ml Vial IJ 09/01/21 23:59 DIRECTED PRN [facility] Active Problems Active Problems: Problem Status Onset Code Diabetes mellitus E11.9 Chronic obstructive lung disease J44.9 ASCVD (arteriosclerotic cardiovascular disease) I25.10 Cardiomyopathy I42.9 Chronic systolic CHF (congestive heart failure) I50.22 Systolic heart failure I50.20 Screening for colon cancer Z12.11 Medical History Medical History Acute right arterial ischemic stroke, middle cerebral artery (MCA) Anemia (10/28/12) iron deficiency 12/30 (Kelly) normal EGD and colonoscopy BPH (benign prostatic hyperplasia) Bradycardia (11/24/14) on Amiodarone and Metoprolol Carotid stenosis Cervical herniated disc Cervical stenosis of spinal canal Chronic back pain CVA (cerebral vascular accident) 2019 Decreased hearing Depressive disorder (11/06/12) Difficulty hearing Gastroesophageal reflux disease History of viral hepatitis, type A Hyperlipidemia Hypertension Left hemiparesis Low back pain Paroxysmal atrial fibrillation (11/24/14) after CABG on warfarin Paroxysmal atrial fibrillation (11/24/14) Sensorineural hearing loss STEMI (ST elevation myocardial infarction) (~11/14/15) 2015 Stroke 2019 Surgical History Surgical History S/P CABG x 3 2014 S/P carotid endarterectomy S/P coronary artery stent placement x1 S/P hernia repair (~2012) incisional umbilical hernia repair by Dr Abiel Rivera, [facility] on 07/16/2016, right inguinal hernia repair with Dr Lan Mendoza, [facility] on 01/29/13 and on 08/13/[address] [facility] by Dr Mendoza a repair of incisional hernia with hydrocele repair on the right. S/P repair of hydrocele S/P tonsillectomy Status post inguinal hernia repair VIDEO CAPSULE ENDOSCOPY (10/13/13) [facility] [place] Tobacco Smoking/Tobacco Use Status: Former Tobacco Use Alcohol Alcohol Intake: former Details: history of alcohol abuse Substance Use Substance use: Never Substance use type: does not use Vital Signs and Lab Results Vital Signs Most Recent Vital Signs in EMR: Most Recent Vital Signs Temp Pulse Resp BP Pulse Ox 36.7 C 66 18 151/84 H 99 08/03/21 09:25 08/03/21 09:25 08/03/21 09:25 08/03/21 09:25 08/03/21 09:25 Point of Care Results Point of Care Results: Finger Stick Blood Glucose 123 08/03/21 09:58 Lab Results Blood Type / Crossmatch: No Data to Display Complete Blood Count: No Data to Display Complete Metabolic Panel: No Data to Display Liver Function Panel: No Data to Display Coagulation Panel: No Data to Display Cardiac Panel: No Data to Display Arterial Blood Gas: No Data to Display Venous Blood Gas: No Data to Display Pancreas Panel: No Data to Display Thyroid Panel: No Data to Display Infectious Disease: No Data to Display Blood Cultures: No Data to Display Toxicology Panel: No Data to Display Imaging and Studies Imaging and Studies Study information below may be from another EMR and interpreted by another provider. Please see original notes in EMR for more complete details. EKG Summary: 07/13/2021: sinus rhythm, prob LVH with repol abnormality. Stress Test Summary: 06/2020: EKG portion nondiagnostic. LVEF 34% with stress, global hypokinesis, moderate sized nonreversible perfusion defect suggestive of scar. Echocardiogram Summary: 05/2020: LVEF 45-50%, mild AR, mild-mod MR. trace TR. Pulmonary Function Summary: 2017: mild obstructive airway dz with some bronchodilator response. Anesthesia Assessment and Plan Anesthesia History Personal History: No History of Anesthesia Complications Family History: No Family History of Anesthesia Complications Exercise Tolerance Exercise Tolerance: Metabolic Equivalents<4 Cardiac & Pulmonary Exam Cardiac Exam: Normal S1/S2 Heart Sounds Pulmonary Exam: Clear Bilateral Breath Sounds Implantable Cardiac Device Does patient have a Pacemaker or an ICD?: No Airway Exam Known Difficult Airway: No Mallampati Class: 2 Mouth Opening: Normal (> 3cm) Thyromental Distance: Greater than 3 cm Neck Range of Motion: Limited ROM Neck Circumference: Normal Teeth Condition: Edentulous ASA Classification ASA Score: ASA 3 Emergency Case?: No NPO Status NPO Status: NPO Clears >2 hours, Solids >8 hours Anesthesia Plan Resuscitation Status: Full Code Anesthesia Technique: General Anesthesia Airway Planned: Natural Airway Monitors Used: Standard Monitors Preoperative Comments:: 75 yo male with changes in bowel habits here for colonoscopy. Sig PMHx: cardiomyopathy (EF 45-50%), ASCVD (PCI followed by CABG x3 2014, negative stress 2020, prn nitro), s/p r CEA (right middle cerebral artery stroke), HTN (metoprolol), anxiety/depression, COPD (albuterol, DM (metformin), pAFIB. Has been doing well since all of his interventions. States that he has no major weakness, talks about occasional water/saliva coming of his mouth out and memory difficulties after his CVA. Previous Anes: Dalton 2 grade 1, difficult mask with 100 mm OPA and 2 hands. Mac 4 grade 1, difficult cuca with 100 mm OPA and 2 hands.
[2021-08-03 10:48] VITALS: BMI 26.0
[2021-08-03 12:23] VITALS: BP 150/62; PULSE 67; RESP 16; TEMP 36.5; O2SAT 97
[2021-08-03 12:50] VITALS: BP 165/80; PULSE 79; RESP 18; TEMP 36.7; O2SAT 97
--- NOTE | 2021-08-03 12:52 | W.ANESPOSTOP ---
Postoperative Evaluation Date, Time and Location Date Performed: 08/03/21 Time Performed: 12:52 Patient Location: Day Surgery Unit Vital Signs Most Recent Imported Vital Signs: Most Recent Vital Signs Temp Pulse Resp BP Pulse Ox 36.5 C 67 16 150/62 H 97 08/03/21 12:23 08/03/21 12:23 08/03/21 12:23 08/03/21 12:23 08/03/21 12:23 Assessment Mental Status: Awake (Alert & Oriented to Patient Baseline) Airway and Respiratory Function: Patent airway with normal (patient baseline) respiratory exam Cardiovascular Function: Hemodynamically Stable Hydration Status: Adequately Hydrated Nausea & Vomiting: No Nausea or Vomiting Pain: Pt. Denies Any Pain Peripheral Nerve Block: Patient did not receive a nerve block
== END 2021-08-03 13:35 | disposition home or self-care (01) ==
PROVIDERS: PCP Nurse Practitioner; Visit Provider Surgery
PROC: 0DJD8ZZ Inspection of Lower Intestinal Tract, Via Natural or Artificial Opening Endoscopic (ICD-10-PCS; CPT 45378; principal; 2021-08-03 09:45)
DX: R19.4 Change in bowel habit (principal); R63.4 Abnormal weight loss; I50.22 Chronic systolic (congestive) heart failure; E11.9 Type 2 diabetes mellitus without complications; J44.9 Chronic obstructive pulmonary disease, unspecified; I11.0 Hypertensive heart disease with heart failure; Z79.84 Long term (current) use of oral hypoglycemic drugs
CPT/HCPCS: 45378

== ENCOUNTER 2021-11-06 21:17 | Observation (INO) | payer OTHER, SELFPAY ==
[2021-11-06] VITALS (13 sets, daily range): BP systolic 139–171; BP diastolic 64–84; PULSE 67–85; RESP 12–19; TEMP 36.7; O2SAT 96–99
--- NOTE | 2021-11-06 21:15 | RT.EKG_ITS ---
APPROVED REPORT Exam: Resting ECG Reason for Exam: tia Patient Location: E HR:73 bpm ECG Measurements Heart Rate 73 AXIS TX 202 P 63 QRSd 111 QRS 48 QT 402 T 128 QTc 442 Conclusion Sinus rhythm...normal P axis, V-rate 60- 99 Probable LVH with secondary repol abnrm...multiple LVH criteria sinus rhythm, normal axis, slight st depressions V4-V6
--- NOTE | 2021-11-06 21:45 | DI.CT_ITS ---
Exam(s) CT BRAIN NECK CTA EXAM: CT BRAIN NECK CTA CLINICAL HISTORY: floating/spinning sensation, hx of stroke. TECHNIQUE: Imaging Protocol: Axial CT angiography was performed with multi-slice acquisition and mu lti-planar and/or 3D reconstructions. CONTRAST MATERIAL: Intravenous: Omnipaque 350 Contrast volume:100 mL COMPARISON: CT CT BRAIN NECK CTA from 11/08/2018 FINDINGS: CTA Neck W: Aortic arch anatomy: Sternotomy wires are noted. The aortic arch anatomy is conventional. No dissecti on flap. No significant stenosis at the origin the great vessels off the aortic arch. Anterior circulation: Both common carotid arteries ascend with normal luminal diameters. Significant improvement on the right side when compared to 1019 study implies that there is probably been interval endarterectomy. There is presently no evidence of significant plaque-stenosis at the right carotid bulb and proximal right internal carotid artery. Some calcified plaque is seen in the artery wall just below none base of the skull. On the opposite-left side there is some calcified plaque on the medial wall of the left common caroti d artery. There is moderate amount of calcified and noncalcified plaque at the left carotid bifurcati on proximal internal carotid artery. Appearance exhibits minimal if any significant change compared t o 11/08/2018. The amount of stenosis at this level is estimated at approximately 50 percent. Above th is level the left internal carotid artery is patent in the neck. Also in the skull base. Posterior circulation: Both vertebral arteries originated conventional fashion off of subclavian arteries. No significant st enosis in the subclavian arteries proximal to the vertebral artery takeoff points. Some calcified mian que is noted at the takeoff points of both vertebral arteries. The left vertebral artery is again noted be dominant and ascends in the foramen transverse area with a luminal diameter of 4.5 millimeters and no evidence of intraluminal thrombus nor dissection. It con tributes to the formation of the basilar artery at the skull base and appears similar to previous. The right vertebral artery is again noted to be a significantly thinner vessel, this on developmental basis. It is sends in the foramen transverse area with luminal diameter of 1.5 millimeters. At the s kull base it is very thin vessel with near occlusion, similar to the previous study. However, does co ntribute to the formation of the basilar artery. CTA Brain W: Anterior circulation: Both internal carotid arteries are patent in the skull base-carotid canals. These vessels exhibit mur al calcification in the cavernous sinuses. No significant stenosis in the intra cavernous left agriculture internship al carotid artery. On the right side there is also calcified mural plaque within the intracavernous p ortion. In the supraclinoid aspect of the right ICA there is a focal stenosis exhibiting approximatel y 60 percent narrowing, unchanged from the 2019 study. The left A1 segment is patent. Right A1 segment is either severely narrowed or developmentally hypopl astic., unchanged. Both anterior cerebral arteries are patent. Anterior communicating artery exhibits no evidence of aneurysm. Both middle cerebral arteries are patent. No tight stenosis nor occlusion. No aneurysms. Posterior circulation: Basilar artery ascends with normal luminal diameter and no evidence of significant stenosis nor disse ction. Distally the basilar artery gives off patent superior cerebellar arteries and above this level terminates as patent bilateral posterior cerebral arteries. There are no obvious posterior communica ting arteries on either side of the [id number]. There is no aneurysm of the tip of the basilar artery. CT BRAIN: There is no evidence of intracranial hemorrhage, mass effect, or shift of midline structures. There are no extra-axial fluid collections. Ventricles are not enlarged or shifted. There are no ring enh ancing lesions in the brain and no abnormal meningeal enhancement. Symmetrical bifrontal atrophy noted. There are no ring enhancing lesions in the brain and there is no abnormal meningeal enhancement, focal nor diffuse. IMPRESSION: 1. No significant stenosis in the right carotid artery in the neck. There appears to been probable en darterectomy with significant improvement compared to the 2019 study. 2. Approximately 50 percent stenosis again noted at the left carotid bifurcation-proximal left ICA. 3. Dominant left vertebral artery/narrow right vertebral artery again noted. 4. Significant stenosis again noted in the distal right vertebral artery at the skull base. The left vertebral artery is the dominant contributor to the normal diameter basilar artery. 5. Unchanged 60 percent stenosis in the supraclinoid right ICA., unchanged from 2019 study. 6. 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 7. Posterior cerebral arteries are patent. 8. No aneurysms. 9. No ring enhancing lesions in the brain and no abnormal meningeal enhancement. RADIATION DOSE DELIVERED: 2,249.63mGy.cm Total DLP DATA REPOSITORY: All CT scans at this facility are submitted to the National Radiology Data Registry (NRDR) Dose Index Registry (DIR) with the [employer] [place] [employer] ([employer]). RADIATION OPTIMIZATION: All CT scans at this facility use at least one of these dose optimization te chniques: automated exposure control; mA and/or kV adjustment per patient size (includes targeted exa ms where dose is matched to clinical indication); or iterative reconstruction.
--- NOTE | 2021-11-06 21:49 | DI.RAD_ITS ---
Exam(s) XR CHEST 2V PA LATERAL EXAM: XR CHEST 2V PA LATERAL CLINICAL HISTORY: AMS. TECHNIQUE: 2D digital imaging was performed. COMPARISON: CR,XR XR CHEST 2V PA LATERAL from 11/08/2018 FINDINGS: 2 views: Sternotomy wires again noted. Heart size is normal. The mediastinum is not widened. Lungs are clear. No infiltrates nor pleural effusions. No evidence of pulmonary edema. IMPRESSION: No acute pulmonary findings. DATA REPOSITORY: RADIATION DOSE DELIVERED:
--- NOTE | 2021-11-06 21:51 | W.ED.GENAD ---
Discharge Plan Disposition Patient Disposition: [facility] INPATIENT Condition: Stable Discharge Details Clinical Impression: Dizziness, Vertebral artery stenosis Primary Care Provider: Christel Godoy ED Provider: Ayaan Kumar Home Meds and New Rx's Prescriptions: No Action albuterol sulfate [ProAir HFA] 90 mcg/actuation HFA aerosol inhaler 2 puff Inhalation Q4H PRN Qty: 3 4RF ibuprofen 800 mg tablet 800 mg PO DAILY PRN (Reason: back pain) Qty: 90 0RF fluticasone propionate [Flonase Allergy Relief] 50 mcg/actuation spray,suspension 2 spray DANDY DAILY Qty: 54.6 3RF cholecalciferol (vitamin D3) 10 mcg (400 unit) capsule 10 mcg PO DAILY Fish Oil 120-180 mg capsule 1 cap PO DAILY ascorbic acid (vitamin C) 500 mg capsule 500 mg PO DAILY diphenhydramine-acetaminophen [Tylenol PM Extra Strength] 25-500 mg tablet 1 tab PO QHS PRN aspirin 81 MG tablet,delayed release (DR/EC) 81 mg PO HS Label Comments: 01/10/15 325 mg daily. si acetaminophen 500 mg capsule 1,000 mg PO Q6H PRN multivitamin Tablet 1 tab PO DAILY nitroglycerin [Nitrostat] 0.4 mg tablet, sublingual 0.4 mg sublingual Q5M PRN (Reason: chest pain) Qty: 30 0RF metformin 1,000 mg tablet 1,000 mg PO BID Qty: 180 3RF metoprolol tartrate 25 mg tablet 12.5 mg PO BID Qty: 180 3RF omeprazole 40 mg capsule,delayed release(DR/EC) 40 mg PO DAILY Qty: 90 3RF simvastatin 40 mg tablet 40 mg PO HS Qty: 90 3RF Rx Instructions: one pill with the Zetia (DME) blood sugar diagnostic Strip See Rx Instructions .ROUTE .MEDSUPPLY Qty: 50 11RF Rx Instructions: daily checks (DME) lancets [OneTouch Delica Plus Lancet] 30 gauge misc See Rx Instructions .ROUTE .MEDSUPPLY Qty: 100 4RF Rx Instructions: once daily fluticasone propionate [Flovent HFA] 110 mcg/actuation HFA aerosol inhaler 2 puff inhalation BID Qty: 36 4RF venlafaxine 75 mg capsule,extended release 24hr 75 mg PO DAILY Qty: 90 4RF All Day Allergy (cetirizine) 10 mg capsule 10 mg PO DAILY Qty: 90 3RF ezetimibe [Zetia] 10 mg tablet 10 mg PO DAILY Qty: 90 3RF Rx Instructions: one pill WITH Simvastatin (for cholesterol) tamsulosin [Flomax] 0.4 mg capsule 0.4 mg PO QHS Qty: 90 3RF Medical Decision Making 75-year-old male history of prior stroke, right carotid endarterectomy, on a daily aspirin presents brought in by son for evaluation of neurologic symptomatology that developed approximately 2 to 3 hours ago, patient developed sensation of flying through a wood/floating/spinning specifically when he closes his eyes, no speech deficit no weakness no numbness, patient is alert and oriented afebrile nontoxic cranial nerves intact 5 out of 5 strength upper and lower extremities no pronator drift no truncal ataxia, vital signs normal likely incomplete left bundle branch block on EKG with slight depressions in lateral leads; consider peripheral vertigo versus CVA versus metabolic derangement versus dehydration versus infectious etiology versus toxicologic process. Will obtain screening labs stat CTA head and neck. Trial of fluids and meclizine disposition pending reassessment and results 00: 28 patient resting comfortably no acute distress labs unremarkable. Evidence of stenosis of right vertebral system 90 to 95%, old occlusion of DOM unchanged since 2019, spoke with neurology at [facility] who agrees the patient benefit from MRI and observation can follow-up as an outpatient if negative MRI. No interventions at this time per neurology. HPI General Date/Time Provider Initiated Documentation: 11/06/21 21:42. HPI Narrative: 75-year-old male history of coronary artery disease, prior stroke, right carotid endarterectomy, on daily aspirin, presents brought in by son for several hours of strange sensation, patient Dors that when he closes his eyes he feels that he is floating through a casey as if he is flying, denies weakness or numbness, no change in speech, no trauma, no new medications, did have COVID approximately 3 weeks ago. Related Data Home Medications Medication Instructions Recorded Confirmed aspirin 81 mg tablet,delayed 81 mg PO HS 06/25/13 11/06/21 release acetaminophen 500 mg capsule 1,000 mg PO Q6H PRN 10/21/18 11/06/21 multivitamin 1 tab PO DAILY 10/21/18 11/06/21 albuterol sulfate 90 mcg/actuation 2 puff inhalation Q4H PRN ##3 10/07/19 11/06/21 aerosol inhaler (ProAir HFA) fluticasone propionate 50 2 spray intranasal DAILY #54.6 mL 10/07/19 11/06/21 mcg/actuation nasal spray,suspension (Flonase Allergy Relief) ibuprofen 800 mg tablet 800 mg PO DAILY PRN back pain #90 10/07/19 11/06/21 tabs nitroglycerin 0.4 mg sublingual 0.4 mg sublingual Q5M PRN chest 10/08/19 11/06/21 tablet (Nitrostat) pain #30 tabs metformin 1,000 mg tablet 1,000 mg PO BID #180 tabs 09/19/20 11/06/21 metoprolol tartrate 25 mg tablet 12.5 mg PO BID #180 tabs 09/19/20 11/06/21 omeprazole 40 mg capsule,delayed 40 mg PO DAILY #90 caps 09/19/20 11/06/21 release simvastatin 40 mg tablet 40 mg PO HS #90 tab-caps 09/19/20 11/06/21 blood sugar diagnostic #50 ea 01/30/21 08/07/21 lancets 30 gauge (OneTouch Delica #100 ea 02/08/21 08/07/21 Plus Lancet) ascorbic acid (vitamin C) 500 mg 500 mg PO DAILY 05/08/21 11/06/21 capsule cholecalciferol (vitamin D3) 10 10 mcg PO DAILY 05/08/21 11/06/21 mcg (400 unit) capsule docosahexaenoic acid (dha)-epa 120 1 cap PO DAILY 05/08/21 11/06/21 mg-180 mg capsule (Fish Oil) fluticasone propionate 110 2 puff inhalation BID #36 grams 05/09/21 11/06/21 mcg/actuation HFA aerosol inhaler (Flovent HFA) diphenhydramine 25 1 tab PO QHS PRN 06/08/21 11/06/21 mg-acetaminophen 500 mg tablet (Tylenol PM Extra Strength) venlafaxine 75 mg capsule,extended 75 mg PO DAILY #90 caps 08/23/21 11/06/21 release 24 hr cetirizine 10 mg capsule (All Day 10 mg PO DAILY #90 caps 09/20/21 11/06/21 Allergy (cetirizine)) ezetimibe 10 mg tablet (Zetia) 10 mg PO DAILY #90 tab-caps 09/20/21 11/06/21 tamsulosin 0.4 mg capsule (Flomax) 0.4 mg PO QHS #90 caps 09/20/21 11/06/21 Previous Rx's Medication Instructions Recorded albuterol sulfate 90 mcg/actuation 2 puff inhalation Q4H PRN ##3 10/07/19 aerosol inhaler (ProAir HFA) fluticasone propionate 50 2 spray intranasal DAILY #54.6 mL 10/07/19 mcg/actuation nasal spray,suspension (Flonase Allergy Relief) ibuprofen 800 mg tablet 800 mg PO DAILY PRN back pain #90 10/07/19 tabs nitroglycerin 0.4 mg sublingual 0.4 mg sublingual Q5M PRN chest 10/08/19 tablet (Nitrostat) pain #30 tabs metformin 1,000 mg tablet 1,000 mg PO BID #180 tabs 09/19/20 metoprolol tartrate 25 mg tablet 12.5 mg PO BID #180 tabs 09/19/20 omeprazole 40 mg capsule,delayed 40 mg PO DAILY #90 caps 09/19/20 release simvastatin 40 mg tablet 40 mg PO HS #90 tab-caps 09/19/20 blood sugar diagnostic #50 ea 01/30/21 lancets 30 gauge (OneTouch Delica #100 ea 02/08/21 Plus Lancet) fluticasone propionate 110 2 puff inhalation BID #36 grams 05/09/21 mcg/actuation HFA aerosol inhaler (Flovent HFA) venlafaxine 75 mg capsule,extended 75 mg PO DAILY #90 caps 08/23/21 release 24 hr cetirizine 10 mg capsule (All Day 10 mg PO DAILY #90 caps 09/20/21 Allergy (cetirizine)) ezetimibe 10 mg tablet (Zetia) 10 mg PO DAILY #90 tab-caps 09/20/21 tamsulosin 0.4 mg capsule (Flomax) 0.4 mg PO QHS #90 caps 09/20/21 Allergies Allergy/AdvReac Type Severity Reaction Status Date / Time celecoxib Allergy Severe SWELLING Verified 11/06/21 21:32 codeine phosphate Allergy Unknown Anaphylaxis, Verified 11/06/21 21:32 [From Robitussin A-C] flashes, unable to breathe rosuvastatin calcium AdvReac Severe DIARRHEA Verified 11/06/21 21:32 [From Crestor] atorvastatin AdvReac Intermediate myalgia Verified 11/06/21 21:32 seasonal Allergy Mild Uncoded 11/06/21 21:32 General Stated Complaint: Dizzy/Sync BELINDA: 2 Review of Systems Narrative: Review of Systems Constitutional: negative Eyes: negative ENT: negative Cardiovascular: negative Respiratory: negative Gastrointestinal: negative : negative Musculoskeletal: negative Skin: negative Neurologic: Flying/floating/spinning sensation Psych: negative PFSH All Active Problems (Updated 11/07/21 @ 00:34 by Ayaan Kumar MD) Diabetes mellitus (Acute) non-insulin dependent Chronic obstructive lung disease (Acute) quit smoking s; non-oxygen dependent ASCVD (arteriosclerotic cardiovascular disease) (Chronic) 11/[address] [facility] (after NSTEMI) 04/04 echo [facility] LVEF 60% Inferior FL 1998 Cardiomyopathy (Acute) Latest EF is 30-35% per echo 11/09/182021 EF 50% Chronic systolic CHF (congestive heart failure) (Acute) Systolic heart failure (Acute) Screening for colon cancer (Acute) Dizziness (Acute) Vertebral artery stenosis (Acute) Medical History (Updated 11/07/21 @ 00:34 by Ayaan Kumar MD) Acute right arterial ischemic stroke, middle cerebral artery (MCA) Anemia (10/28/12) iron deficiency 12/30 ([place]) normal EGD and colonoscopy BPH (benign prostatic hyperplasia) Bradycardia (11/24/14) on Amiodarone and Metoprolol Carotid stenosis Cervical herniated disc Cervical stenosis of spinal canal Chronic back pain CVA (cerebral vascular accident) 2019 Decreased hearing Depressive disorder (11/06/12) Difficulty hearing Gastroesophageal reflux disease History of viral hepatitis, type A Hyperlipidemia Hypertension Left hemiparesis Low back pain Paroxysmal atrial fibrillation (11/24/14) after CABG on warfarin Paroxysmal atrial fibrillation (11/24/14) Sensorineural hearing loss STEMI (ST elevation myocardial infarction) (~11/14/15) 2015 Stroke 2019 Surgical History S/P CABG x 3 2015 S/P carotid endarterectomy S/P coronary artery stent placement x1 S/P hernia repair (~2012) incisional umbilical hernia repair by Dr Abiel Rivera, [facility] on 07/16/2016, right inguinal hernia repair with Dr Lan Mendoza, [facility] on 01/29/13 and on 08/13/13 also at [facility] by Dr Mendoza a repair of incisional hernia with hydrocele repair on the right. S/P repair of hydrocele S/P tonsillectomy Status post inguinal hernia repair VIDEO CAPSULE ENDOSCOPY (10/13/13) [facility] Family History Mother Essential hypertension Heart disease Hyperlipidemia Father Heart disease Sister Essential hypertension Hyperlipidemia Brother , Farming accident No problems noted. Brother Stroke Brother Essential hypertension Heart disease Hyperlipidemia Brother Essential hypertension Hyperlipidemia Brother Heart disease bypass surgeries Grandfather Heart disease Grandfather No problems noted. Grandmother Personal history of malignant neoplasm Lung Heart disease Grandmother No problems noted. Social History Smoking/Tobacco Use Status: Former Tobacco Use Quit Date: 02/17/1967 Tobacco: How many years used: 7 Smoking risk assessment performed?: Yes Alcohol Intake: former Details: history of alcohol abuse Drug use: Never Substance use type: does not use Do you feel safe at home: Yes Do you feel safe in your relationship?: Yes Exam Narrative Exam Narrative: Physical Examination General: alert, awake, cooperative, resting comfortably, no acute distress HEENT: normocephalic, atraumatic; PERRL, EOM intact, conjunctiva normal; no nasal discharge; moist mucous membranes, oral and pharyngeal mucosa normal, tolerating secretions Neck: supple, trachea midline; full ROM Chest: normal to inspection Respiratory: normal respiratory effort, speaking in full sentences, clear to auscultation, no wheezing, rales or rhonchi Cardiac: regular rate, regular rhythm, S1S2 intact, no murmurs rubs or gallops GI: abdomen soft, non-tender, non-distended; no palpable mass or hepatosplenomegaly Skin: no lesions, rashes or trauma appreciated Neuro: AAOx3, cranial nerves II through XII intact, no pronator drift, no truncal ataxia, no nystagmus, 5 out of 5 strength upper and lower extremities Psych: Appropriate mood and affect Course Vital Signs Vital signs: Vital Signs Temperature 36.7 C 11/06/21 21:24 Pulse 77 11/06/21 21:24 Respiratory Rate 18 11/06/21 21:24 Blood Pressure 171/77 H 11/06/21 21:24 Pulse Oximetry 96 11/06/21 21:24 Temperature 36.7 C 11/06/21 21:24 Temperature Source Skin 11/06/21 21:24 Pulse 77 11/06/21 21:24 Respiratory Rate 18 11/06/21 21:24 Respiratory Effort 11/06/21 21:29 Blood Pressure 171/77 H 11/06/21 21:24 Blood Pressure Position Supine 11/06/21 21:24 Pulse Oximetry 96 11/06/21 21:24 Oxygen Delivery Method Room Air 11/06/21 21:24 Oxygen Flow Rate 0 11/06/21 21:24 Pain Level 0 11/06/21 21:24
[2021-11-06] MEDS: Normal Saline 500 ML 1000 ML IV (21:59)
[2021-11-06] MEDS: Meclizine 25 MG TAB PO (22:00)
[2021-11-06 22:13] LABS: Abs Immature Grans 0.02 10^3/uL (0.0-0.06); Absolute Basophil Count 0.07 10^3/uL (0.0-0.2); Absolute Eosinophil Count 0.65 10^3/uL (0.0-0.7); Absolute Lymphocyte Count 2.63 10^3/uL (1.2-3.4); Absolute Monocyte Count 0.81 10^3/uL (0.1-0.8); Absolute Neutrophil Count 2.32 10^3/uL (1.2-6.7); Basophils % 1.1; HGB 11.4 g/dL (13.5-17.5); Immature Grans % 0.3; Lymphocytes % 40.5; MCH 31.7 pg (27.0-33.0); MCHC 34.5 % (32.0-36.0); MCV 92 fL (80-95); MPV 9.4 fL (8.0-11.0); Monocytes % 12.5; Neutrophils % 35.6; Platelet Count 302 10^3/uL (130-400); RDW 12.3 % (11.8-14.1); RDW-SD 41.5 fL
[2021-11-06 22:14] LABS: PTT Activated 25.6 sec (21.0-27.5); Prothrombin Time 9.9 sec (9.3-11.0)
[2021-11-06 22:26] LABS: ALT 29 U/L (16-63); AST 15 U/L (15-37); Alkaline Phosphatase 112 U/L (46-116); Anion Gap 4.8 mmol/L (3-11); BUN 17 mg/dL (7-18); Bilirubin, Total 0.3 mg/dL (0.2-1.0); CO2 29.2 mmol/L (21.0-32.0); CREATININE 0.9 mg/dL (0.70-1.30); Calcium 8.9 mg/dL (8.5-10.1); Chloride 91 mmol/L (98-107); Estimated GFR 88.51 (mL/min/1.73m2); Glucose 116 mg/dL (74-106); Potassium 4.3 mmol/L (3.5-5.1); Sodium 125 mmol/L (136-145); TSH (W/Ref FT4) 4.21 uIU/mL (0.36-3.74); Total Protein 7.1 g/dL (6.4-8.2); Troponin I < 50 ng/L (<or=60)
[2021-11-06] MEDS: Omnipaque 350 MG/ML 100 ML BTL IJ (22:33)
[2021-11-06 22:46] LABS: Bilirubin Negative (Negative); Blood Negative (Negative); Clarity Clear (Clear); Glucose Negative (Negative); Ketones Negative (Negative); Leukocyte Esterase Negative (Negative); Nitrite Negative (Negative); Urobilinogen 0.2 EU/dL (Up TO 0.2); pH 6.5 (5-8)
[2021-11-06 22:52] LABS: FREE T4 1.09 ng/dL (0.76-1.46)
[2021-11-06 22:54] LABS: *AMPHETAMINES SCREEN URINE Negative (Negative); *BARBITURATES SCREEN URINE Negative (Negative); *BENZODIAZEPINES SCREEN URINE Negative (Negative); Cannabinoids THC Negative (Negative); Cocaine Screen,Urine Negative (Negative); METHADONE URINE SCREEN Negative (Negative); OPIATES URINE SCREEN Negative (Negative)
[2021-11-06 22:59] LABS: Tricyclic Antidepressants Negative (Negative)
[2021-11-06 23:12] LABS: ETHANOL BLOOD < 3.0 mg/dL (<10)
--- NOTE | 2021-11-06 23:31 | DI.VRAD_ITS ---
PROCEDURE INFORMATION: Exam: XR Chest Exam date and time: 11/06/2021 10:58 PM Age: 75 years old Clinical indication: Other: AMS TECHNIQUE: Imaging protocol: Radiologic exam of the chest. Views: 2 views. COMPARISON: CT CHEST WO 11/15/2020 2:35 PM FINDINGS: Lungs: Question slight hyperexpansion and hyperlucency with minimal diaphragmatic flattening suggesting possible COPD. Pulmonary vasculature grossly normal. No gross pulmonary infiltrates or edema pattern. Pleural spaces: No pleural effusion. No pneumothorax. Heart/Mediastinum: Heart size normal. Prior median sternotomy. No tracheal/mediastinal shift. Bones/joints: No acute osseous abnormalities are identified. Osteopenia. Mild-moderate thoracic spondylosis. IMPRESSION: 1. No acute thoracic process. 2. Suspect mild changes of COPD. 3. Prior median sternotomy. No radiographic evidence of acute cardiac decompensation. Dictated and Authenticated by: Boris Powell MD. Ordering:PRAVEEN Kuo MD
--- NOTE | 2021-11-06 23:43 | DI.VRAD_ITS ---
Addendum created by Boris Powell MD on 11/06/2021 11:42:27 PM EDT: Addendum: THIS REPORT CONTAINS FINDINGS THAT MAY BE CRITICAL TO PATIENT CARE. The findings were verbally communicated via telephone conference with Ayaan Kumar at 11:41 PM EDT on 11/06/2021. The findings were acknowledged and understood. Initial report created on 11/06/2021 11:29:40 PM EDT: PROCEDURE INFORMATION: Exam: CTA Head With Contrast, Arteriography Exam date and time: 11/06/2021 10:31 PM Age: 75 years old Clinical indication: Stroke-like symptoms; Altered mental status/memory loss and dizziness/giddiness and other: Floating/spinning sensation, HX of stroke TECHNIQUE: Imaging protocol: Computed tomographic angiography of the head with contrast. Exam focused on the arteries. 3D rendering (Not supervised by radiologist): MIP and/or 3D reconstructed images were created by the technologist. Radiation optimization: All CT scans at this facility use at least one of these dose optimization techniques: automated exposure control; mA and/or kV adjustment per patient size (includes targeted exams where dose is matched to clinical indication); or iterative reconstruction. Contrast material: OMNI 350; Contrast volume: 100 ml; Contrast route: INTRAVENOUS (IV); COMPARISON: MR ANGIO BRAIN WO 11/09/2018 7:45 AM FINDINGS: ANTERIOR CIRCULATION: Right internal carotid artery: The right ICA petrous segment is unremarkable. Moderate calcific plaque in the cavernous segment without evidence of high-grade stenosis. Short segment moderate soft plaque in the right ICA supraclinoid segment producing moderate stenosis of approximately 50%, unchanged from 11/08/2018. Right middle cerebral artery: Unremarkable. No occlusion or significant stenosis. No aneurysm. Right anterior cerebral artery: The right DOM A1 segment is either congenitally hypoplastic or severely stenotic, with more normal caliber distally near the level of the anterior communicating artery. Alternatively, this may represent an infundibulum related to a small branch vessel arising near the anterior communicating artery, with aplastic right A1 segment. This is unchanged from 11/08/2018. Aneurysm considered less likely given the elongated configuration and associated vessel at the tip. The anterior communicating artery is unremarkable. Left internal carotid artery: The left ICA petrous segment is unremarkable. Click cavernous left mild-moderate calcific atherosclerosis in the left ICA supraclinoid segment without significant stenosis. Left middle cerebral artery: Unremarkable. No occlusion or significant stenosis. No aneurysm. Left anterior cerebral artery: Unremarkable. No occlusion or significant stenosis. No aneurysm. POSTERIOR CIRCULATION: Right vertebral artery: Moderate-severe mixed plaque in the distal intracranial segment of the right vertebral artery with severe stenosis/near occlusion near the vertebrobasilar junction which appears mildly progressed since 2019. The right PICA enhances appropriately. No aneurysm. Left vertebral artery: Dominant left vertebral artery with mild-moderate distal calcific atherosclerosis. No occlusion or significant stenosis. No aneurysm. Basilar artery: Mild calcific atherosclerosis. No occlusion or significant stenosis. No aneurysm. Right posterior cerebral artery: Unremarkable. No occlusion or significant stenosis. No aneurysm. Left posterior cerebral artery: Unremarkable. No occlusion or significant stenosis. No aneurysm. Other arteries: Moderate calcific atherosclerosis. Cavernous Sinus: The dural venous sinuses and major cortical veins enhance appropriately without evidence of thrombosis. Brain: Mild bilateral white matter hypodensities which are nonspecific but most commonly associated with chronic microvascular ischemia in this age group. The IACs are grossly normal. No extra-axial fluid collections. Mild prominence of the peripheral CSF spaces, felt to be related to generalized atrophy. No evidence of acute intracranial hemorrhage. No CT evidence of large territory acute or subacute intracranial ischemia/infarct. No intracranial mass lesions. No midline shift or herniation. No enhancing brain lesions or vascular malformations are identified. Cerebral ventricles: Mild compensatory ventriculomegaly secondary to central atrophy. Pituitary gland and sella: The sella is grossly normal. Orbital cavities: No acute intraorbital findings. Mastoid air cells: Partially opacified right mastoid air cells suggesting mild mastoiditis. No gross coalescence. Left mastoid air cells are clear. Paranasal sinuses: Mucosal thickening in the right maxillary sinus suggesting mild changes of chronic sinusitis. The other paranasal sinuses are clear. No fluid levels. Bones/joints: The calvarium and visualized facial bones are intact. Soft tissues: The scalp and visualized soft tissues demonstrate no acute abnormality. Other findings: Moderate generalized atrophy. No asymmetric vascular hyperdensities suggestive of thrombosis are identified. Lundberg-white differentiation is well maintained. IMPRESSION: 1. No acute findings. No evidence of acute large vessel occlusion. No evidence of arterial dissection or aneurysm/pseudoaneurysm. 2. 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 3. Chronic short segment moderate stenosis of the right ICA supraclinoid segment estimated at 50%, unchanged. 4. Severe stenosis in the distal right vertebral artery near the vertebrobasilar confluence, estimated at greater than 90% and progressed since 11/08/2018, without reba occlusion. 5. Atrophy consistent with age. 6. These findings initiated a critical results reporting process per stroke protocol. An addendum will be issued at the time of clinician notification. PROCEDURE INFORMATION: Exam: CTA Neck With Contrast Exam date and time: 11/06/2021 10:31 PM Age: 75 years old Clinical indication: Stroke-like symptoms; Altered mental status/memory loss and dizziness/giddiness and other: Floating/spinning sensation, HX of stroke TECHNIQUE: Imaging protocol: Computed tomographic angiography of the neck with contrast. 3D rendering (Not supervised by radiologist): MIP and/or 3D reconstructed images were created by the technologist. Radiation optimization: All CT scans at this facility use at least one of these dose optimization techniques: automated exposure control; mA and/or kV adjustment per patient size (includes targeted exams where dose is matched to clinical indication); or iterative reconstruction. Contrast material: OMNI 350; Contrast volume: 100 ml; Contrast route: INTRAVENOUS (IV); COMPARISON: CT BRAIN NECK CTA 11/08/2018 1:18 PM FINDINGS: Right common carotid artery: Mild-moderate distal mixed calcific plaque. No stenosis. No dissection or occlusion. Right internal carotid artery: Mild calcific plaque in the proximal segment and mild-moderate calcific plaque in the distal segment near the skull base. No stenosis. No dissection or occlusion. Right external carotid artery: Normal. No stenosis. No dissection or occlusion. Left common carotid artery: Mild proximal and distal calcific plaque. No stenosis. No dissection or occlusion. Left internal carotid artery: Moderate mixed calcific plaque in the left carotid bulb and mild-moderate calcific plaque in the proximal left ICA. No stenosis. No dissection or occlusion. Left external carotid artery: Mild mixed plaque in the left ECA post ostial segment producing mild stenosis of less than 50%. No dissection or occlusion. Right vertebral artery: Very small/hypoplastic right vertebral artery again noted. Moderate plaque in the distal intracranial segment with multifocal severe stenosis which is most pronounced near the vertebrobasilar junction, estimated at greater than 90% and demonstrating progression since 11/08/2018. No dissection or occlusion. The right PICA enhances appropriately. Left vertebral artery: Dominant left vertebral artery. Mild stenosis of less than 50% in the proximal left vertebral artery. Mild calcific atherosclerosis. No dissection or occlusion. Brachiocephalic artery: The brachiocephalic artery demonstrates mild calcific plaque without stenosis. Right subclavian artery: The right subclavian artery demonstrates mild calcific plaque without stenosis. Left subclavian artery: The left subclavian artery demonstrates mild calcific plaque without stenosis. Aorta: The visualized aortic arch demonstrates aneurysmal dilatation of the ascending segment measuring 4.1 cm diameter which is unchanged. No dissection. Thyroid: The thyroid gland is unremarkable. Soft tissues: No significant soft tissue swelling or hematoma. Bones/joints: No acute osseous abnormalities are identified. Moderate multilevel cervical disc space narrowing with bilateral uncovertebral spurring and bilateral foraminal stenoses. Pleural spaces: Mild bilateral apical pleural/parenchymal scarring. IMPRESSION: 1. No evidence of carotid stenosis. No aneurysm or pseudoaneurysm. No dissection. 2. Short segment severe stenosis of the distal most right vertebral artery near the vertebrobasilar confluence estimated at greater than 90% and progressed since 2019. 3. 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 4. These findings initiated a critical results reporting process per stroke protocol. An addendum will be issued at the time of clinician notification. REFERENCES: NASCET CRITERIA. The degree of stenosis in the cervical segment of the internal carotid artery is based on NASCET criteria. Normal is no stenosis. Mild is less than 50% stenosis. Moderate is 50-69% stenosis. Severe is 70% to 99% stenosis. Total occlusion is no detectable patent lumen. Dictated and Authenticated by: Boris Powell MD. Ordering:PRAVEEN Kuo MD
[2021-11-07] VITALS (12 sets, daily range): BP systolic 117–151; BP diastolic 71–77; PULSE 66–77; RESP 14–18; TEMP 36.5–36.9; O2SAT 96–99
--- NOTE | 2021-11-07 | DI.MRI_ITS ---
Exam(s) MR BRAIN WO EXAM: MR BRAIN WO CLINICAL HISTORY: suspected stroke TECHNIQUE: Multiplanar multisequence MRI of the brain was performed. COMPARISON: CT CT BRAIN NECK CTA from 11/06/2021 FINDINGS: CEREBRAL PARENCHYMA: There is no evidence of intracranial hemorrhage, mass effect, or shift of midline structures. There are no extra-axial fluid collections. Ventricles are not enlarged or shifted. There is no significant focal signal abnormality in the cerebellar hemispheres nor within the nilda, m idbrain, and thalami. There is mild bilateral periventricular signal abnormality consistent with some chronic small vessel disease. No evidence of hemorrhage nor surrounding edema at these levels. There is symmetrical bila teral frontal atrophy. There is no significant focal signal abnormality evident on diffusion imaging to suggest acute ischem ic event. SWI: No evidence of microhemorrhages. PITUITARY GLAND: No mass nor parasellar abnormality. No obvious abnormality in the cavernous sinuses. FLOW VOIDS: The expected flow void are noted. No evidence of obvious aneurysm nor obvious vascular ma lformation. PARANASAL SINUSES: The visualized paranasal sinuses appear unremarkable. No obvious finding ORBITS: No obvious findings. IMPRESSION: No acute intracranial findings. Mild bilateral periventricular white matter chronic signal abnormali ty. No evidence of acute infarct nor intra-axial hemorrhage Symmetrically enlarged CSF space over both frontal lobes either due to atrophy or small bifrontal hyg romas. DATA REPOSITORY:
--- NOTE | 2021-11-07 01:03 | W.PM.HP.N ---
Date of service: 11/07/21 Time of Service: 01:04 Assessment and Plan Assessment and plan (1) Stroke: Status: Chronic Assessment and plan: I think he has probably had a small posterior fossa (left cerebellar) stroke, manifesting with atypical vertigo-like symptoms. Will give full dose aspirin for tonight (usually on baby ASA) and obtain MRI in AM. Usual meds as is otherwise. Reviewed ADs, requests Full Code. History of Present Illness History of Present Illness Chief Complaint: vertigo Narrative: 75 male with h/o CVA, CAD, DM -- here tonight with sudden onset sensation of being impelled across the landscape, like he is floating through the casey. No nausea or vomiting. No [place]. No lateralizing weakness or sensory changes, no change in vision. No ear pain or D/C, no recent URI. In ER w/u of note for CT head w/o acute findings, CTA head and neck showing severe distal right vertebral artery occlusion; baseline anemia (Hct 33) and baseline hyponatremia (125). Patient was given Meclizine w/o effect. Case reviewed with Neuro at [facility] [place], advise MRI brain in AM. I was asked to evaluate for admission. Review of Systems Narrative: per HPI PFSH All Active Problems (Updated 11/07/21 @ 01:14 by Saman Blanca MD) Stroke (Chronic) Diabetes mellitus (Acute) non-insulin dependent Chronic obstructive lung disease (Acute) quit smoking ; non-oxygen dependent ASCVD (arteriosclerotic cardiovascular disease) (Chronic) 11/01 CABG x 3 at [facility] [place] (after NSTEMI) 04/04 echo [facility] LVEF 60% Inferior [place] 1998 Cardiomyopathy (Acute) Latest EF is 30-35% per echo 11/09/182021 EF 50% Chronic systolic CHF (congestive heart failure) (Acute) Systolic heart failure (Acute) Screening for colon cancer (Acute) Dizziness (Acute) Vertebral artery stenosis (Acute) Medical History Acute right arterial ischemic stroke, middle cerebral artery (MCA) Anemia (10/28/12) iron deficiency 12/30 ([place]) normal EGD and colonoscopy BPH (benign prostatic hyperplasia) Bradycardia (11/24/14) on Amiodarone and Metoprolol Carotid stenosis Cervical herniated disc Cervical stenosis of spinal canal Chronic back pain CVA (cerebral vascular accident) 2019 Decreased hearing Depressive disorder (11/06/12) Difficulty hearing Gastroesophageal reflux disease History of viral hepatitis, type A Hyperlipidemia Hypertension Left hemiparesis Low back pain Paroxysmal atrial fibrillation (11/24/14) after CABG on warfarin Paroxysmal atrial fibrillation (11/24/14) Sensorineural hearing loss STEMI (ST elevation myocardial infarction) (~11/14/15) 2015 Stroke 2019 Surgical History S/P CABG x 3 2014 S/P carotid endarterectomy S/P coronary artery stent placement x1 S/P hernia repair (~2012) incisional umbilical hernia repair by Dr Abiel Rivera, [facility] on 07/16/2016, right inguinal hernia repair with Dr Lan Mendoza, [facility] on 01/29/13 and on 08/13/13 also at [facility] by Dr Mendoza a repair of incisional hernia with hydrocele repair on the right. S/P repair of hydrocele S/P tonsillectomy Status post inguinal hernia repair VIDEO CAPSULE ENDOSCOPY (10/13/13) [facility] [place] Family History Mother Essential hypertension Heart disease Hyperlipidemia Father Heart disease Sister Essential hypertension Hyperlipidemia Brother , Farming accident No problems noted. Brother Stroke Brother Essential hypertension Heart disease Hyperlipidemia Brother Essential hypertension Hyperlipidemia Brother Heart disease bypass surgeries Grandfather Heart disease Grandfather No problems noted. Grandmother Personal history of malignant neoplasm Lung Heart disease Grandmother No problems noted. Social History Smoking/Tobacco Use Status: Former Tobacco Use Quit Date: 02/17/1967 Tobacco: How many years used: 7 Smoking risk assessment performed?: Yes Alcohol Intake: former Details: history of alcohol abuse Drug use: Never Substance use type: does not use Do you feel safe at home: Yes Do you feel safe in your relationship?: Yes Meds Allergies and Home Medications Allergies Allergy/AdvReac Type Severity Reaction Status Date / Time celecoxib Allergy Severe SWELLING Verified 11/06/21 21:32 codeine phosphate Allergy Unknown Anaphylaxis, Verified 11/06/21 21:32 [From Robitussin A-C] flashes, unable to breathe rosuvastatin calcium AdvReac Severe DIARRHEA Verified 11/06/21 21:32 [From Crestor] atorvastatin AdvReac Intermediate myalgia Verified 11/06/21 21:32 seasonal Allergy Mild Uncoded 11/06/21 21:32 Home Medications Medication Instructions Recorded Confirmed Type aspirin 81 mg tablet,delayed 81 mg PO HS 06/25/13 11/06/21 History release acetaminophen 500 mg capsule 1,000 mg PO Q6H PRN 10/21/18 11/06/21 History multivitamin 1 tab PO DAILY 10/21/18 11/06/21 History albuterol sulfate 90 mcg/actuation 2 puff inhalation Q4H PRN ##3 10/07/19 11/06/21 Rx aerosol inhaler (ProAir HFA) fluticasone propionate 50 2 spray intranasal DAILY #54.6 mL 10/07/19 11/06/21 Rx mcg/actuation nasal spray,suspension (Flonase Allergy Relief) ibuprofen 800 mg tablet 800 mg PO DAILY PRN back pain #90 10/07/19 11/06/21 Rx tabs nitroglycerin 0.4 mg sublingual 0.4 mg sublingual Q5M PRN chest 10/08/19 11/06/21 Rx tablet (Nitrostat) pain #30 tabs metformin 1,000 mg tablet 1,000 mg PO BID #180 tabs 09/19/20 11/06/21 Rx metoprolol tartrate 25 mg tablet 12.5 mg PO BID #180 tabs 09/19/20 11/06/21 Rx omeprazole 40 mg capsule,delayed 40 mg PO DAILY #90 caps 09/19/20 11/06/21 Rx release simvastatin 40 mg tablet 40 mg PO HS #90 tab-caps 09/19/20 11/06/21 Rx blood sugar diagnostic #50 ea 01/30/21 08/07/21 Rx lancets 30 gauge (OneTouch Delica #100 ea 02/08/21 08/07/21 Rx Plus Lancet) ascorbic acid (vitamin C) 500 mg 500 mg PO DAILY 05/08/21 11/06/21 History capsule cholecalciferol (vitamin D3) 10 10 mcg PO DAILY 05/08/21 11/06/21 History mcg (400 unit) capsule docosahexaenoic acid (dha)-epa 120 1 cap PO DAILY 05/08/21 11/06/21 History mg-180 mg capsule (Fish Oil) fluticasone propionate 110 2 puff inhalation BID #36 grams 05/09/21 11/06/21 Rx mcg/actuation HFA aerosol inhaler (Flovent HFA) diphenhydramine 25 1 tab PO QHS PRN 06/08/21 11/06/21 History mg-acetaminophen 500 mg tablet (Tylenol PM Extra Strength) venlafaxine 75 mg capsule,extended 75 mg PO DAILY #90 caps 08/23/21 11/06/21 Rx release 24 hr cetirizine 10 mg capsule (All Day 10 mg PO DAILY #90 caps 09/20/21 11/06/21 Rx Allergy (cetirizine)) ezetimibe 10 mg tablet (Zetia) 10 mg PO DAILY #90 tab-caps 09/20/21 11/06/21 Rx tamsulosin 0.4 mg capsule (Flomax) 0.4 mg PO QHS #90 caps 09/20/21 11/06/21 Rx Exam Narrative Exam Narrative: 117/77, 74, 36.7, 16, 99% RA. HEENT atraumatic; neck supple, w/o carotid bruit; lungs clear; heart RRR; abdomen soft and NT; extremities w/o edema; neuro Ox3, lucid, EOMI, PERRL, no facial asymmetry, tongue midline; motor 5/5, sensory intact light touch, FTN slight dysmetria left, ANABELLA fair-poor on left, HTS WNL Results Labs Result diagrams: 11/06/21 21:40 11/06/21 21:49 Labs: Laboratory Results - last 24 hr 11/06/21 11/06/21 11/06/21 21:40 21:40 21:49 WBC 6.50 RBC 3.60 L Hgb 11.4 L Hct 33.0 L MCV 92 MCH 31.7 MCHC 34.5 RDW 12.3 Plt Count 302 MPV 9.4 Immature Gran % 0.3 Neutrophils % 35.6 Lymphocytes % 40.5 Monocytes % 12.5 Eosinophils % 10.0 Basophils % 1.1 Nucleated RBC % 0.0 Absolute Neutrophils 2.32 Absolute Lymphocytes 2.63 Absolute Monocytes 0.81 H Absolute Eosinophils 0.65 Absolute Basophils 0.07 PT 9.9 INR 1.0 APTT 25.6 Sodium 125 L Potassium 4.3 Chloride 91 L Carbon Dioxide 29.2 Anion Gap 4.8 BUN 17 Creatinine 0.9 Est GFR (CKD-EPI 2020) 88.51 Glucose 116 H Calcium 8.9 Total Bilirubin 0.3 AST 15 ALT 29 Alkaline Phosphatase 112 Troponin I < 50 Total Protein 7.1 Albumin 4.0 TSH 4.21 H Free T4 1.09 Urine Color Urine Clarity Urine pH Ur Specific [place] Urine Protein Urine Ketones Urine Blood Urine Nitrite Urine Bilirubin Urine Urobilinogen Ur Leukocyte Esterase Urine Glucose Urine Opiates Screen Urine Methadone Screen Ur Barbiturates Screen Ur Tricyclics Screen Ur Amphetamines Screen U Benzodiazepines Scrn Urine Cocaine Screen Ur THC Screen Ethyl Alcohol < 3.0 11/06/21 11/06/21 22:37 22:37 WBC RBC Hgb Hct MCV MCH MCHC RDW Plt Count MPV Immature Gran % Neutrophils % Lymphocytes % Monocytes % Eosinophils % Basophils % Nucleated RBC % Absolute Neutrophils Absolute Lymphocytes Absolute Monocytes Absolute Eosinophils Absolute Basophils PT INR APTT Sodium Potassium Chloride Carbon Dioxide Anion Gap BUN Creatinine Est GFR (CKD-EPI 2020) Glucose Calcium Total Bilirubin AST ALT Alkaline Phosphatase Troponin I Total Protein Albumin TSH Free T4 Urine Color Yellow Urine Clarity Clear Urine pH 6.5 Ur Specific [place] 1.020 Urine Protein Negative Urine Ketones Negative Urine Blood Negative Urine Nitrite Negative Urine Bilirubin Negative Urine Urobilinogen 0.2 Ur Leukocyte Esterase Negative Urine Glucose Negative Urine Opiates Screen Negative Urine Methadone Screen Negative Ur Barbiturates Screen Negative Ur Tricyclics Screen Negative Ur Amphetamines Screen Negative U Benzodiazepines Scrn Negative Urine Cocaine Screen Negative Ur THC Screen Negative Ethyl Alcohol Last Vital Signs Temp 36.7 C 11/06/21 21:24 Pulse 75 11/07/21 00:19 Resp 16 11/07/21 00:20 BP 117/77 11/07/21 00:19 Pulse Ox 99 11/07/21 00:20
[2021-11-07] MEDS: LORazepam 1 MG TAB PO (01:42)
[2021-11-07 02:12] LABS: Source Nasal/Nares
[2021-11-07 03:13] LABS: COVID-19 PCR POSITIVE (Negative)
[2021-11-07 07:46] LABS: Sodium 126 mmol/L (136-145)
[2021-11-07] MEDS: Omeprazole 20 MG CAPCR 40 MG PO (07:46)
[2021-11-07] MEDS: metFORMIN 500 MG TAB 1000 MG PO ×2 (07:47→16:54)
[2021-11-07] MEDS: Acetaminophen 500 MG TAB 1000 MG PO (07:47)
[2021-11-07] MEDS: Metoprolol 12.5 MG TAB PO (07:58)
[2021-11-07] MEDS: Cetirizine 10 MG TAB PO (07:58)
[2021-11-07] MEDS: Venlafaxine 75 MG CAPCR PO (07:58)
[2021-11-07] MEDS: Mometasone 220 MCG 14 DOSE INHALER 2 PUFF IH (08:07)
[2021-11-07 08:46] LABS: Lab Add On Test DONE
[2021-11-07 09:03] LABS: Hemoglobin A1C 6.2 % (<5.7)
[2021-11-07 09:27] LABS: Calculated LDL 68 mg/dL (<100); Cholesterol 131 mg/dL (<200); HDL Cholesterol 57 mg/dL (40-60); Triglyceride 31 mg/dL (<150); Vitamin B12 245 pg/mL (193-986)
--- NOTE | 2021-11-07 10:39 | DI.US_ITS ---
APPROVED REPORT EXAM: Comprehensive 2D, Doppler, and color-flow Echocardiogram Patient Location: In-Patient Room/Bed: [address] [employer] Processor: Savannah Granda RDCS (AE) Indications: Suspected stroke, CAD, Bypass 11[place]01 [place] [facility] [place] Other Information Study Quality: Fair. Technically limited study due to body habitus, exam done bedide. Conclusion Technically difficult study Normal left ventricular wall thickness and chamber size. Estimated ejection fraction is 40 to 45%. There are segmental wall motion abnormalities Normal right ventricular size and systolic function Both atria are normal in size The aortic valve is sclerotic with mild regurgitation Normal mitral valve with trace to mild regurgitation Normal tricuspid valve with trace regurgitation Wall motion Left Ventricle The left ventricle is normal size. Left ventricular systolic function is mild to moderately decreased . There is normal left ventricular wall thickness. Regional wall motion abnormalities are noted. Ther e is no ventricular septal defect visualized. LVEF is 40-45%. Right Ventricle Right ventricle is grossly normal in size. Right ventricular systolic function is grossly normal. Atria The left atrium size is normal. The right atrium size is normal. The interatrial septum is intact wit h no evidence for an atrial septal defect. Aortic Valve The Aortic valve is sclerotic. Number of aortic valve leaflets could not be assessed. There is no aor tic valvular stenosis. Mild aortic regurgitation. Mitral Valve The mitral valve is normal in structure. No evidence of mitral valve stenosis. Trace to mild mitral r egurgitation. Tricuspid Valve The tricuspid valve is normal in structure. There is no tricuspid valve stenosis. Trace tricuspid reg urgitation. Unable to assess PA pressure. Pulmonic Valve The pulmonary valve is normal in structure. There is no pulmonic valvular stenosis. Trace pulmonic re gurgitation. Great Vessels The aortic root is normal in size. Ascending aorta is not well visualized. Aortic arch is not well vi sualized. IVC is normal in size and collapses >50% with inspiration. Pericardium There is no pericardial effusion. 2D Dimensions IVSD d PLAX 0.92 cm M: 0.6-1.2 LV Vol A2C d MOD 131.7 mL LVPW d PLAX 1.02 cm M: 0.6 - 1.2 LV Vol A4C d MOD 179.0 mL LVID d PLAX 4.80 cm M: 4.2 - 5.8 LA vol/ BSA A2C s A-L 31.7 mL/m2 LVDs 3.70 cm M: 2.5 - 4.0 LA vol/ BSA A4C s A-L 24.1 mL/m2 Ao Root d 3.73 cm M: 3.1 - 3.7 LA Vol/ BSA Biplane s A-L 30.0 mL/m2 RA Area A4C 12.28 cm2 LA Area A4C s MOD 16.87 cm2 RA Vol/ BSA A4C s A-L 15.1 mL/m2 LA Area A2C s MOD 20.95 cm2 LV EF Teichholz 44.7 % LV EF A4C MOD 45.0 % LVEF (Chavez's) 42.80 % M: 52 - 72 LV EF A2C MOD 40.0 % LV Volume 117.82 mL M: 62 - 150 LV EF Biplane MOD 42.8 % LV Volume Index 59.50 mL/m2 M: 34 - 74 SV 67.01 mL LV Vol Biplane MOD 156.6 mL SV Index 33.85 mL/m2 FS 22.20 % LV Diastology E/A Ratio 0.8 MV E Vmax 0.60 (0.4-1.3 m/s) MV A Vmax 0.80 (0.4-1.3 m/s) MV E/A Ratio 0.74 Aortic Valve LVOT Area 3.78 cm2 AoV Area Vmax 3.25 cm2 LVOT Vmax 0.97 m/s AoV Area/ BSA (Vmax) 1.64 cm2/m2 LVOT Mean Ruslan. 0.58 m/s TOBY Mean Ruslan. 2.62 cm2 LVOT Peak Grad 3.7 mmHg TOBY Mean Ruslan. Index 1.32 cm2/m2 LVOT Mean Grad 1.7 mmHg AR DT 2351 msec LVOT VTI 0.206 m AR PHT 682 msec LVOT Diam s 2.15 cm AoV Vmax 1.12 m/s Velocity Ratio 0.86 AoV Mean Ruslan. 0.84 m/s AoV Peak Grad 5.1 mmHg LVOT SV 77.73 mL AoV Mean Grad 3.1 mmHg AoV VTI 0.248 m AoV Area VTI 3.14 cm2 AoV Area/ BSA (VTI) 1.58 cm/m2 Mitral Valve MV DT 303 (160-240 msec) MV PHT 88 msec MV Area PHT 2.51 cm2 Pulmonary Valve PV Vmax 1.12 (0.5-1.5 m/s) RVOT Peak Gr. 0.77 mmHg PV Peak Grad 5.1 mmHg RVOT Mean Gr. 0.40 mmHg PV Mean Grad 3.1 mmHg RVOT VTI 0.082 m PV VTI 0.217 m RVOT Vmax 0.44 m/s
--- NOTE | 2021-11-07 12:08 | INITIAL_ITS ---
- If Service Date Differs Date of service: 11/07/21 Time of Service: 12:08 Care Management Initial Assess REASON FOR HOSPITALIZATION:: Stroke PAST MEDICAL HISTORY/PAST SURGICAL HISTORY:: All Active Problems (Updated 11/07/21 @ 01:14 by Saman Blanca MD). Stroke (Chronic). Diabetes mellitus (Acute). non-insulin dependent. Chronic obstructive lung disease (Acute). quit smoking ; non-oxygen dependent. ASCVD (arteriosclerotic cardiovascular disease) (Chronic). 11/01 CABG x 3 at [facility] [place] (after NSTEMI). 04/04 echo [facility] LVEF 60%. Inferior [place] 1998. Cardiomyopathy (Acute). Latest EF is 30- 35% per echo 11/09/18. 2021 EF 50%. Chronic systolic CHF (congestive heart failure) (Acute). Systolic heart failure (Acute). Screening for colon cancer (Acute). Dizziness (Acute). Vertebral artery stenosis (Acute). Medical History . Acute right arterial ischemic stroke, middle cerebral artery (MCA). Anemia (10/28/12). iron deficiency. 12/30 ([place]) normal EGD and colonoscopy. BPH (benign prostatic hyperplasia). Bradycardia (11/24/14). on Amiodarone and Metoprolol. Carotid stenosis. Cervical herniated disc. Cervical stenosis of spinal canal. Chronic back pain. CVA (cerebral vascular accident). 2019. Decreased hearing. Depressive disorder (11/06/12). Difficulty hearing. Gastroesophageal reflux disease. History of viral hepatitis, type A. Hyperlipidemia. Hypertension. Left hemiparesis. Low back pain. Paroxysmal atrial fibrillation (11/24/14). after CABG. on warfarin. Paroxysmal atrial fibrillation (11/24/14). Sensorineural hearing loss. STEMI (ST elevation myocardial infarction) (~11/14/15). 2015. Stroke. 2019. Surgical History . S/P CABG x 3. 2015. S/P carotid endarterectomy. S/P coronary artery stent placement. x1. S/P hernia repair (~2012). incisional umbilical hernia repair by Dr Abiel Rivera, [facility] on 07/16/2016, right inguinal hernia repair with Dr Lan Mendoza, [facility] on 01/29/13 and on 08/13/13 also at [facility] by Dr Mendoza a repair of incisional hernia with hydrocele repair on the right. S/P repair of hydrocele. S/P tonsillectomy. Status post inguinal hernia repair. VIDEO CAPSULE ENDOSCOPY (10/13/13). [facility] PREVIOUS FUNCTIONAL STATUS/SOCIAL/FAMILY SUPPORTS:: Ramses lives at home in [place] with his , Coty. His son, Rajesh lives nearby and provides support. He has a large, supportive family in the area. Ramses is retired and independent at baseline. CURRENT FUNCTIONAL STATUS:: CM was unable to meet with Ramses as he was off the unit for testing and later was evaluated by PT and Neurology. When CM returned late in the day, Ramses had been discharged. ADVANCE DIRECTIVES:: none on file Has patient been provided with info about the portal/API?: Yes Did the patient sign up for the portal?: No CODE STATUS:: Full Code INSURANCE COVERAGE / FINANCIAL ISSUES:: [employer]. Financial Assist 100 PRIMARY CARE PHYSICIAN:: Christel Godoy POTENTIAL DISCHARGE NEEDS:: follow up with PCP, neurology and plan of care PATIENT/FAMILY EDUCATION NEEDS:: Review of discharge instructions, limitations, activity, medications, follow up plan, Ask Me Three TRANSPORTATION:: to be determined by disposition PLAN:: Ramses will be discharged home with no new services. He will follow up with his community providers and plan of care and transport with family.
--- NOTE | 2021-11-07 14:51 | PT.INIE ---
Date of service: 11/07/21 Time of Service: 14:51 PT Notes Visit Reasons: Stroke Physical Therapy Inpatient Initial Evaluation Date: 11/07/2021 Referring Doctor: Teresa Colon MD PT Orders: PT CONSULT: Limited ability Precautions: Fall. Standard. Activity as tolerated. Patient Profile/Admitting Diagnosis: Ramses is a 75-year-old male who presented to the ED due to complaints of spinning, floating, and sensation of flying through the casey. Patient is admitted for further testing and work-up for CVA. MRI of the head showed no intracranial findings. Head/Neck CT showed: 1. No significant stenosis in the right carotid artery in the neck. There appears to been probable endarterectomy with significant improvement compared to the 2019 study. 2.? Approximately 50 percent stenosis again noted at the left carotid bifurcation-proximal left ICA. 3. ? Dominant left vertebral artery/narrow right vertebral artery again noted. 4. Significant stenosis again noted in the distal right vertebral artery at the skull base. The left vertebral artery is the dominant contributor to the normal diameter basilar artery. 5. Unchanged 60 percent stenosis in the supraclinoid right ICA., unchanged from 2019 study. 6. 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 7. Posterior cerebral arteries are patent. 8. No aneurysms. 9. No ring enhancing lesions in the brain and no abnormal meningeal enhancement. PMHX: All Active Problems?(Updated 11/07/21 @ 01:14 by Saman Blanca MD) Stroke (Chronic) Diabetes mellitus (Acute) non-insulin dependentChronic obstructive lung disease (Acute) quit smoking ; non-oxygen dependent ASCVD (arteriosclerotic cardiovascular disease) (Chronic) 11/01 CABG x 3 [place] [facility] [place] (after NSTEMI) 04/04 echo [facility] LVEF 60% Inferior [place] 1998 Cardiomyopathy (Acute) Latest EF is 30-35% per echo 11/09/182021 EF 50% Chronic systolic CHF (congestive heart failure) (Acute) Systolic heart failure (Acute) Screening for colon cancer (Acute) Dizziness (Acute) Vertebral artery stenosis (Acute) Medical History? Acute right arterial ischemic stroke, middle cerebral artery (MCA) Anemia (10/28/12) iron deficiency 12/30 ([place]) normal EGD and colonoscopy BPH (benign prostatic hyperplasia) Bradycardia (11/24/14) on Amiodarone and Metoprolol Carotid stenosis Cervical herniated disc Cervical stenosis of spinal canal Chronic back pain CVA (cerebral vascular accident) 2019 Decreased hearing Depressive disorder (11/06/12) Difficulty hearing Gastroesophageal reflux disease History of viral hepatitis, type A Hyperlipidemia Hypertension Left hemiparesis Low back pain Paroxysmal atrial fibrillation (11/24/14) after CABG on warfarin Paroxysmal atrial fibrillation (11/24/14) Sensorineural hearing loss STEMI (ST elevation myocardial infarction) (~11/14/15) 2015 Stroke 2019 Surgical History? S/P CABG x 3 2014 S/P carotid endarterectomy S/P coronary artery stent placement x1S/P hernia repair (~2012) incisional umbilical hernia repair by Dr Abiel Rivera, [facility] on 07/16/2016, right inguinal hernia repair with Dr Lan Mendoza, [facility] on 01/29/13 and on 08/13/13 also at [facility] by Dr Mendoza a repair of incisional hernia with hydrocele repair on the right. S/P repair of hydrocele S/P tonsillectomy Status post inguinal hernia repair VIDEO CAPSULE ENDOSCOPY (10/13/13) [facility] [place] Social History/Home Situation: Lives with in a private hoe with a rampt to enter. Independent with all aspects of ADLs. Equipment Owned/DME: [facility] Subjective: Patient denies any spinning, sensation of moving through the casey or on snow, being off-balance through out session today. Denies headache, chest pain, and dizziness. Hopeful that he could go home as soon as he is medically cleared. Objective: General Observation: Supine in bed. Telemetry monitoring in place. IV access through R UE. No facila asymmetry obeserved. Mental Status: Alert and oriented as to person, place, time, and purpose. Able to pay attention, focus, and respond appropriately. Pain: Denies Vital Signs: WNL as closely monitored by nursing staff ROM: Right Upper Extremity: Shoulder Flexion WFL. Shoulder abduction WFL. Elbow flexion WFL. Wrist flexion WFL. Functional opening and closing of hand WFL. Left Upper Extremity: Shoulder Flexion WFL. Shoulder abduction WFL. Elbow flexion WFL. Wrist flexion WFL. Functional opening and closing of hand WFL. Right Lower Extremity: Hip flexion WFL. Hip abduction WFL. Knee flexion WFL. Ankle dorsiflexion WFL. Ankle plantarflexion WFL. Left Lower Extremity: Hip flexion WFL. Hip abduction WFL. Knee flexion WFL. Ankle dorsiflexion WFL. Ankle plantarflexion WFL. Strength: Right Upper Extremity: Shoulder flexors 5/5. Shoulder abductors 5/5. Elbow flexors 5/5. Elbow extensors 5/5. Travel Ot strong. Left Upper Extremity: Shoulder flexors 5/5. Shoulder abductors 5/5. Elbow flexors 5/5. Elbow extensors 5/5. Travel Ot strong. Right Lower Extremity: Hip flexors 4/5. Hip abductors 4/5. Knee flexor 5/5. Knee extensors 4/5. Ankle dorsiflexors 4/5. Ankle plantarflexors 4/5. Left Lower Extremity: Hip flexors 4/5. Hip abductors 4/5. Knee flexor 5/5. Knee extensors 4/5. Ankle dorsiflexors 4/5. Ankle plantarflexors 4/5. Bed Mobility/Transfers: Rolling independent Supine to sit independent Sit to supine independent Sit to stand independent Stand to sit independent Bed to reclining chair independent Reclining chair to bed independent Gait: Instructed patient with level surface ambulation of 300 feet requiring supervision assist. No assistive device needed. No loss of balance. No shortness of breath. No path deviation. Balance: Static Sitting: Normal Dynamic Sitting: Normal Static Standing: Normal Dynamic Standing: Good 30-Second Chair Rise score: 12x 4-stage balance Test: Able to maintain feet together but unable to do so with semi-tandem, full tandem, and one-legged stance. Patietn feels unsafe tryin this out. Romberg Test: Negative Pronator Drift: Negative Special Tests: Mobility Limitations Standardized Measure [facility] AM-PAC 6 clicks Basic Mobility Inpatient Short Form: Raw Score: 24 CMS Score: 0% deficit Informed Consent/Education: Patient was instructed in purpose of PT consult. Assessment: Strength symmetric in B UE. No facial asymmetry observed. Gait pattern unremarkable. Patient at low risk for falls due to 4-stage balance result. Patient is assessed as a 21740 low complexity based on the following: History: 75-year-old male with past medical history as indicated above Examination: No demonstrable impairment in strength and mobility level with underlying impairments and functional limitations as exhibited with a deficit score of 0% utilizing the [facility] Mobility Inpatient Short Form. Some impairment in balance which patient states he has had for quite a while Presentation: Stable Decision Makin low complexity Goals: N/A. PT evaluation and 1 treatment session only for functional mobility training. Plan of Care/Treatment Plan: N/A. PT evaluation and 1 treatment session only for functional mobility training. DISCHARGE RECOMMENDATIONS: [X] Home with no services. Home when medically cleared by hospitalist. No ambulatory devices needed at this time. [] Home with services [specify] [] Home with outpatient PT [] [] SNF for continued rehabilitation [] [] [facility] [] [] SNF versus LTC based on ability to participate and progress [] TREATMENT CODE/TIME: 53089 x 20 minutes, 51216 x 15 minutes beginning at 14:51 PM. Thank you for the opportunity to participate in the care of this patient. Ronda Ledesma PT, DPT, CLT [facility] [place], [place]
--- NOTE | 2021-11-07 16:00 | W.NEUROCONSU ---
Date of service: 11/07/21 Time of Service: 16:00 Assessment and Plan Assessment and plan (1) Atypical migraine: Status: Acute (2) Cerebral atherosclerosis: Status: Acute Assessment and plan: #1. Suspect presenting symptoms are due to an atypical vertiginous migraine following a stressful day of over 7hours of driving and in the setting of dehydration. No further treatment needed. #2. Cerebral atherosclerosis. Intracranial disease noted in R vertebral and R internal carotid arteries. Recommend medical management with anti-platelets, statin, and good BP and glucose control. Next month he will be leaving for [place] where he will spend the next 6months. No neurological follow-up at this time. He will get a PCP in [place]. History of Present Illness History of Present Illness Chief Complaint: vertigo Narrative: Handedness: right. HPI: Mr. Walker is a 75 year-old man with CAD s/p AL and CABG, paroxysmal atrial fibrillation not on anticoagulation (he says coumadin is rat poison), diabetes, hypertension, hyperlipidemia, depression, COPD, and chronic hyponatremia. He had a prior stroke in Oct 2018 manifested by L arm and leg weakness and numbness secondary to R carotid stenosis s/p CEA. He is on aspirin 81mg and simvastatin 40mg daily at baseline. Mr. Walker had a long day yesterday driving to [place] and then back (~7hr round trip). He returned home around 730pm. He sat down to watch television after which he had a sensation that his chair was moving. He closed his eyes and then had a sensation as if he was moving forward through the forest. When he opened his eyes, this sensation of movement abruptly resolved. However, every time he closed his eyes, the sensation would return. He had no associated headaches, weakness, sensory loss, etc. He presented to the ER for these symptoms and underwent the work-up as below. He still had symptoms as of midnight last night when he took a sleep aid and then slept through the night. When he awoke this morning, he was asymptomatic and has had no recurrence of symptoms since then. He has never had anything like this before. He has chronic hyponatremia. Notes that he drinks 3 cups of coffee daily as his only fluid intake daily. Work-up: -CTH (11/06/21): No acute findings. I reviewed these images personally and this is my personal interpretation. -CTA head/neck (11/06/21): small R vetebral artery with intracranial stenosis. Further intracranial stenosis of the supraclinoid R ICA. Complex L ICA plaque without significant stenosis. I reviewed these images personally and this is my personal interpretation. -MRI brain (11/07/21): No acute findings. Small bilateral frontal hygromas. I reviewed these images personally and this is my personal interpretation. -Labs: Hgb 11.4 (baseline ~12), Na 125-126 (Baseline 125-130), A1c 6.2, LDL 68, TSH 4.21 -> 2.9, FT4 1.09, trop x 1 neg, UDS/ETOH neg, urine spec grav 1.020 Review of Systems All systems reviewed & are unremarkable except as noted in HPI and below PFSH All Active Problems (Updated 11/07/21 @ 17:12 by Emily Carrera MD) Cerebral atherosclerosis (Acute) Hyponatremia (Acute) Atypical migraine (Acute) Stroke (Chronic) Diabetes mellitus (Acute) non-insulin dependent Chronic obstructive lung disease (Acute) quit smoking ; non-oxygen dependent ASCVD (arteriosclerotic cardiovascular disease) (Chronic) 11/[place] [facility] [place]04 [place] [facility] LVEF 60% Inferior [place] 1998 Cardiomyopathy (Acute) Latest EF is 30-35% per echo 11/09/182021 EF 50% Chronic systolic CHF (congestive heart failure) (Acute) Systolic heart failure (Acute) Screening for colon cancer (Acute) Dizziness (Acute) Vertebral artery stenosis (Acute) Medical History Acute right arterial ischemic stroke, middle cerebral artery (MCA) Anemia (10/28/12) iron deficiency 12/30 ([place]) normal EGD and colonoscopy BPH (benign prostatic hyperplasia) Bradycardia (11/24/14) on Amiodarone and Metoprolol Carotid stenosis Cervical herniated disc Cervical stenosis of spinal canal Chronic back pain CVA (cerebral vascular accident) 2019 Decreased hearing Depressive disorder (11/06/12) Difficulty hearing Gastroesophageal reflux disease History of viral hepatitis, type A Hyperlipidemia Hypertension Left hemiparesis Low back pain Paroxysmal atrial fibrillation (11/24/14) after CABG on warfarin Paroxysmal atrial fibrillation (11/24/14) Sensorineural hearing loss STEMI (ST elevation myocardial infarction) (~11/14/15) 2014 Stroke 2019 Surgical History S/P CABG x 3 2014 S/P carotid endarterectomy S/P coronary artery stent placement x1 S/P hernia repair (~2012) incisional umbilical hernia repair by Dr Abiel Rivera, [facility] on 07/16/2016, right inguinal hernia repair with Dr Lan Mendoza, [facility] on 01/29/13 and on 08/13/13 also at [facility] by Dr Mendoza a repair of incisional hernia with hydrocele repair on the right. S/P repair of hydrocele S/P tonsillectomy Status post inguinal hernia repair V[place] CAPSULE ENDOSCOPY (10/13/13[place] [facility] [place] History Mother Essential hypertension Heart disease Hyperlipidemia Father Heart disease Sister Essential hypertension Hyperlipidemia Brother , Farming accident No problems noted. Brother Stroke Brother Essential hypertension Heart disease Hyperlipidemia Brother Essential hypertension Hyperlipidemia Brother Heart disease bypass surgeries Grandfather Heart disease Grandfather No problems noted. Grandmother Personal history of malignant neoplasm Lung Heart disease Grandmother No problems noted. Social History Smoking/Tobacco Use Status: Former Tobacco Use Quit Date: 02/17/1967 Tobacco: How many years used: 7 Smoking risk assessment performed?: Yes Alcohol Intake: former Details: history of alcohol abuse Drug use: Never Substance use type: does not use Do you feel safe at home: Yes Do you feel safe in your relationship?: Yes Visit Medication and Allergies Active Medications Generic Name Dose Route Start Last Admin Trade Name Freq PRN Reason Stop Dose Admin Acetaminophen 1,000 mg 11/07/21 02:31 11/07/21 07:47 Acetaminophen 500 Mg Tab PO 1,000 mg Q6H PRN Administration Acetaminophen 500 mg 11/07/21 02:41 Acetaminophen 500 Mg Tab PO HS PRN PRN Albuterol Sulfate 2 puff 11/07/21 07:30 Albuterol Hfa 8 Gm 60 Puff Inh IH Q4H PRN PRN Aspirin 81 mg 11/07/21 22:00 Aspirin E.C. 81 Mg Tabec PO HS JAMSHID Cetirizine HCl 10 mg 11/07/21 08:30 11/07/21 07:58 Cetirizine 10 Mg Tab PO 10 mg DAILY [facility] Administration Device 1 each 11/07/21 02:00 Inhaler, Assist Device DIRECTED [facility] Dimethicone/Zinc Oxide 0 gm 11/07/21 01:17 Renata Protect Cream 142 Gm Tube TP PRN PRN Diphenhydramine HCl 25 mg 11/07/21 02:42 Diphenhydramine 25 Mg Cap PO HS PRN PRN Ezetimibe 10 mg 11/07/21 22:00 Ezetimibe 10 Mg Tab PO HS JAMSHID Ibuprofen 800 mg 11/07/21 07:30 Ibuprofen 800 Mg Tab PO DAILY PRN PRN back pain Metformin HCl 1,000 mg 11/07/21 08:00 11/07/21 07:47 Metformin 500 Mg Tab PO 1,000 mg BID@0800,1700 JAMSHID Administration Metoprolol Tartrate 12.5 mg 11/07/21 08:30 11/07/21 07:58 Metoprolol 12.5 Mg Tab PO 12.5 mg BID JAMSHID Administration Mometasone Furoate 2 puff 11/07/21 08:30 11/07/21 08:07 Mometasone 220 Mcg 14 Dose Inhaler IH 1 inh BID JAMSHID Administration Omeprazole 40 mg 11/07/21 07:30 11/07/21 07:46 Omeprazole 20 Mg Capcr PO 40 mg DAILY@0730 JAMSHID Administration Simvastatin 40 mg 11/07/21 22:00 Simvastatin 40 Mg Tab PO HS [facility] Sodium Chloride 50 ml 11/06/21 22:45 11/06/21 22:38 Normal Saline 250 Ml Bag IJ 250 ml DIRECTED JAMSHID Administration Tamsulosin HCl 0.4 mg 11/07/21 22:00 Tamsulosin 0.4 Mg Capcr PO HS [facility] Venlafaxine HCl 75 mg 11/07/21 08:30 11/07/21 07:58 Venlafaxine 75 Mg Capcr PO 75 mg DAILY JAMSHID Administration Allergies celecoxib Allergy (Severe, Verified 11/06/21 21:32) SWELLING codeine phosphate [From Robitussin A-C] Allergy (Unknown, Verified 11/06/21 21:32) Anaphylaxis, flashes, unable to breathe rosuvastatin calcium [From Crestor] Adverse Reaction (Severe, Verified 11/06/21 21:32) DIARRHEA atorvastatin Adverse Reaction (Intermediate, Verified 11/06/21 21:32) myalgia seasonal Allergy (Mild, Uncoded 11/06/21 21:32) Exam Narrative Exam Narrative: Physical Exam: Gen: Patient of apparent stated age, NAD Head and face: no facial or cranial abnormalities Neck: Supple, no meningismus, no occipital tenderness CV: + S1, S2, RRR, no murmur Resp: CTA B/L Abd: soft, nontender, nondistended Ext: No edema. No clubbing or cyanosis. No bony deformity. Neuro Exam: Language: fluency, naming, repetition, and comprehension intact; Mental Status: AAOx3, current events intact, fund of knowledge intact; Speech: no dysarthria Cranial nerves: Funduscopy: not performed CN II: visual oquendo intact CN III, IV, : extraocular movements intact, no nystagmus, pupils symmetric and reactive to light CN V: face sensation intact to LT and PP CN VII: no facial asymmetry noted CN VIII: hearing intact bilaterally CN IX, X: palate rises symmetrically CN XI: trapezius/SCM 5/5 bilaterally CN XII: protrudes tongue symmetrically Sensory: intact to LT, PP, and joint position in all extremities; reduced vibration in the toes bilaterally Motor: bulk and tone intact. Fine motor movements intact bilaterally. No pronator drift. Strength 5/5 throughout including the deltoids, biceps, triceps, wrist extensors, hip flexors, knee flexors, knee extensors, ankle flexors, and ankle extensors. Reflexes: 2+ at the biceps, triceps, brachioradialis; reduced at the patella and achilles tendons bilaterally; toes down going bilaterally; Coordination: FTN and HTS intact bilaterally Gait: not tested Results Last Vital Signs Temp 98.1 F 11/07/21 11:59 Pulse 66 11/07/21 11:59 Resp 16 11/07/21 11:59 BP 130/74 11/07/21 11:59 Pulse Ox 98 11/07/21 11:59 Labs Result diagrams: 11/06/21 21:40 11/07/21 06:55 Labs: Laboratory Results - last 24 hr 11/06/21 11/06/21 11/06/21 21:40 21:40 21:40 WBC 6.50 RBC 3.60 L Hgb 11.4 L Hct 33.0 L MCV 92 MCH 31.7 MCHC 34.5 RDW 12.3 Plt Count 302 MPV 9.4 Immature Gran % 0.3 Neutrophils % 35.6 Lymphocytes % 40.5 Monocytes % 12.5 Eosinophils % 10.0 Basophils % 1.1 Nucleated RBC % 0.0 Absolute Neutrophils 2.32 Absolute Lymphocytes 2.63 Absolute Monocytes 0.81 H Absolute Eosinophils 0.65 Absolute Basophils 0.07 PT 9.9 INR 1.0 APTT 25.6 Sodium Potassium Chloride Carbon Dioxide Anion Gap BUN Creatinine Est GFR (CKD-EPI 2020) Glucose Hemoglobin A1c 6.2 H Calcium Total Bilirubin AST ALT Alkaline Phosphatase Troponin I Total Protein Albumin Triglycerides Total Cholesterol LDL Cholesterol, Calc HDL Cholesterol Vitamin B12 TSH Free T4 Urine Color Urine Clarity Urine pH Ur Specific [place] Urine Protein Urine Ketones Urine Blood Urine Nitrite Urine Bilirubin Urine Urobilinogen Ur Leukocyte Esterase Urine Glucose Urine Opiates Screen Urine Methadone Screen Ur Barbiturates Screen Ur Tricyclics Screen Ur Amphetamines Screen U Benzodiazepines Scrn Urine Cocaine Screen Ur THC Screen Ethyl Alcohol COVID-19 Source SARS-CoV-2 (PCR) Add-On Test Request 11/06/21 11/06/21 11/06/21 21:49 22:37 22:37 WBC RBC Hgb Hct MCV MCH MCHC RDW Plt Count MPV Immature Gran % Neutrophils % Lymphocytes % Monocytes % Eosinophils % Basophils % Nucleated RBC % Absolute Neutrophils Absolute Lymphocytes Absolute Monocytes Absolute Eosinophils Absolute Basophils PT INR APTT Sodium 125 L Potassium 4.3 Chloride 91 L Carbon Dioxide 29.2 Anion Gap 4.8 BUN 17 Creatinine 0.9 Est GFR (CKD-EPI 2020) 88.51 Glucose 116 H Hemoglobin A1c Calcium 8.9 Total Bilirubin 0.3 AST 15 ALT 29 Alkaline Phosphatase 112 Troponin I < 50 Total Protein 7.1 Albumin 4.0 Triglycerides Total Cholesterol LDL Cholesterol, Calc HDL Cholesterol Vitamin B12 TSH 4.21 H Free T4 1.09 Urine Color Yellow Urine Clarity Clear Urine pH 6.5 Ur Specific [place] 1.020 Urine Protein Negative Urine Ketones Negative Urine Blood Negative Urine Nitrite Negative Urine Bilirubin Negative Urine Urobilinogen 0.2 Ur Leukocyte Esterase Negative Urine Glucose Negative Urine Opiates Screen Negative Urine Methadone Screen Negative Ur Barbiturates Screen Negative Ur Tricyclics Screen Negative Ur Amphetamines Screen Negative U Benzodiazepines Scrn Negative Urine Cocaine Screen Negative Ur THC Screen Negative Ethyl Alcohol < 3.0 COVID-19 Source SARS-CoV-2 (PCR) Add-On Test Request 11/07/21 11/07/21 11/07/21 02:02 06:55 06:55 WBC RBC Hgb Hct MCV MCH MCHC RDW Plt Count MPV Immature Gran % Neutrophils % Lymphocytes % Monocytes % Eosinophils % Basophils % Nucleated RBC % Absolute Neutrophils Absolute Lymphocytes Absolute Monocytes Absolute Eosinophils Absolute Basophils PT INR APTT Sodium 126 L Potassium Chloride Carbon Dioxide Anion Gap BUN Creatinine Est GFR (CKD-EPI 2020) Glucose Hemoglobin A1c Calcium Total Bilirubin AST ALT Alkaline Phosphatase Troponin I Total Protein Albumin Triglycerides 31 Total Cholesterol 131 LDL Cholesterol, Calc 68 HDL Cholesterol 57 Vitamin B12 245 TSH 2.90 Free T4 Urine Color Urine Clarity Urine pH Ur Specific [place] Urine Protein Urine Ketones Urine Blood Urine Nitrite Urine Bilirubin Urine Urobilinogen Ur Leukocyte Esterase Urine Glucose Urine Opiates Screen Urine Methadone Screen Ur Barbiturates Screen Ur Tricyclics Screen Ur Amphetamines Screen U Benzodiazepines Scrn Urine Cocaine Screen Ur THC Screen Ethyl Alcohol COVID-19 Source Nasal/Nares SARS-CoV-2 (PCR) POSITIVE A* Add-On Test Request 11/07/21 08:43 WBC RBC Hgb Hct MCV MCH MCHC RDW Plt Count MPV Immature Gran % Neutrophils % Lymphocytes % Monocytes % Eosinophils % Basophils % Nucleated RBC % Absolute Neutrophils Absolute Lymphocytes Absolute Monocytes Absolute Eosinophils Absolute Basophils PT INR APTT Sodium Potassium Chloride Carbon Dioxide Anion Gap BUN Creatinine Est GFR (CKD-EPI 2020) Glucose Hemoglobin A1c Calcium Total Bilirubin AST ALT Alkaline Phosphatase Troponin I Total Protein Albumin Triglycerides Total Cholesterol LDL Cholesterol, Calc HDL Cholesterol Vitamin B12 TSH Free T4 Urine Color Urine Clarity Urine pH Ur Specific [place] Urine Protein Urine Ketones Urine Blood Urine Nitrite Urine Bilirubin Urine Urobilinogen Ur Leukocyte Esterase Urine Glucose Urine Opiates Screen Urine Methadone Screen Ur Barbiturates Screen Ur Tricyclics Screen Ur Amphetamines Screen U Benzodiazepines Scrn Urine Cocaine Screen Ur THC Screen Ethyl Alcohol COVID-19 Source SARS-CoV-2 (PCR) Add-On Test Request DONE
--- NOTE | 2021-11-07 16:52 | W.PM.DS.N ---
Date of service: 11/07/21 Time of Service: 16:52 DS: Diagnosis Discharge Diagnosis (1) Atypical migraine: Status: Acute (2) Hyponatremia: Status: Acute (3) Hypertension: Status: Inactive (4) Hyperlipidemia: Status: Inactive Discharge Plan Disposition Patient Disposition: HOME Condition: Stable Discharge Details Reason For Visit: Stroke Admit Date/Time: 11/07/21 01:17 Admit Provider: Saman Blanca Attending Provider: Saman Blanca [facility] Hospital Course: Mr Walker is a 75 year old male with PMHx of CAD, NIDDM2, chronic systolic CHF with LVEF of 45-50% per echo in 05/24/21, COPD, who was observed on [facility] hospitalist service on 11/07/21 for transient sensation of vertigo after a long drive. He ruled out for acute CVA with negative CTs and MRI. and did not have recurrence of symptoms after sleeping. He was evaluated by Dr Carrera who felt that the patient likely had an atypical migraine. He is stable for discharge today from this stand point as he is symptom free. Due to his chronic hyponatremia, the patient may try using salt tablets. His PCP is to follow his sodium as outpatient. Care for patient as well as completion of his discharge summary took 40 minutes. Home Meds and New Rx's Prescriptions: New sodium chloride 1 gram tablet 1,000 mg PO BID Qty: 30 0RF cyanocobalamin (vitamin B-12) 1,000 mcg capsule 1,000 mcg PO DAILY Qty: 30 0RF Continued albuterol sulfate [ProAir HFA] 90 mcg/actuation HFA aerosol inhaler 2 puff Inhalation Q4H PRN Qty: 3 4RF ibuprofen 800 mg tablet 800 mg PO DAILY PRN (Reason: back pain) Qty: 90 0RF fluticasone propionate [Flonase Allergy Relief] 50 mcg/actuation spray,suspension 2 spray DANDY DAILY Qty: 54.6 3RF cholecalciferol (vitamin D3) 10 mcg (400 unit) capsule 10 mcg PO DAILY Fish Oil 120-180 mg capsule 1 cap PO DAILY ascorbic acid (vitamin C) 500 mg capsule 500 mg PO DAILY diphenhydramine-acetaminophen [Tylenol PM Extra Strength] 25-500 mg tablet 1 tab PO QHS PRN aspirin 81 MG tablet,delayed release (DR/EC) 81 mg PO HS Label Comments: 01/10/15 325 mg daily. si acetaminophen 500 mg capsule 1,000 mg PO Q6H PRN multivitamin Tablet 1 tab PO DAILY nitroglycerin [Nitrostat] 0.4 mg tablet, sublingual 0.4 mg sublingual Q5M PRN (Reason: chest pain) Qty: 30 0RF metformin 1,000 mg tablet 1,000 mg PO BID Qty: 180 3RF metoprolol tartrate 25 mg tablet 12.5 mg PO BID Qty: 180 3RF omeprazole 40 mg capsule,delayed release(DR/EC) 40 mg PO DAILY Qty: 90 3RF simvastatin 40 mg tablet 40 mg PO HS Qty: 90 3RF Rx Instructions: one pill with the Zetia (DME) blood sugar diagnostic Strip See Rx Instructions .ROUTE .MEDSUPPLY Qty: 50 11RF Rx Instructions: daily checks (DME) lancets [OneTouch Delica Plus Lancet] 30 gauge misc See Rx Instructions .ROUTE .MEDSUPPLY Qty: 100 4RF Rx Instructions: once daily fluticasone propionate [Flovent HFA] 110 mcg/actuation HFA aerosol inhaler 2 puff inhalation BID Qty: 36 4RF venlafaxine 75 mg capsule,extended release 24hr 75 mg PO DAILY Qty: 90 4RF All Day Allergy (cetirizine) 10 mg capsule 10 mg PO DAILY Qty: 90 3RF ezetimibe [Zetia] 10 mg tablet 10 mg PO DAILY Qty: 90 3RF Rx Instructions: one pill WITH Simvastatin (for cholesterol) tamsulosin [Flomax] 0.4 mg capsule 0.4 mg PO QHS Qty: 90 3RF Discharge Instructions Instructions: Migraine Headache (ED) Additional Instructions: Return to the hospital if you have a recurrence of neurological symptoms, if you have a fever, bleeding, chest pain, or shortness of breath. Stand Alone Forms: Nursing Discharge Form Referrals: Christel Godoy NP [Primary Care Provider] - (Call to make an appointment in the next 2 weeks ) Activity:: Activity as Tolerated Equipment/Supplies:: No Equipment Needed Diet:: As Tolerated Discharge Orders Discharge Orders: Discharge Order (Routine); Ordered 11/07/21 Ordered By: Teresa Colon DS: Summary Time Spent with Patient providing and/or coordinating discharge services: Greater than 30 minutes Status at Discharge Functional status at discharge: independent ambulation Overall status at discharge: patient is back to baseline Mental Status: mental status grossly normal Speech and Movement: speech and movement normal Mood: congruent mood Affect: normal affect Exam Narrative Exam Narrative: General: Pleasant elderly male, A&Ox3, NAD HEENT: EOMI, MMM Heart: RRR, no m/r/g Lungs: CTAB Abdomen: soft, nontender, nondistended Extremities: no edema BLEs Psych Mental Status: mental status grossly normal Speech and Movement: speech and movement normal Mood: congruent mood Affect: normal affect DS: Data Vitals/I&O Vitals and I&O: Vital Signs Temperature 36.5 C 11/07/21 15:35 Temperature Source Tympanic 11/07/21 15:35 Pulse 72 11/07/21 15:35 Pulse Rhythm Regular 11/07/21 15:35 Pulse 74 11/07/21 00:20 Respiratory Rate 17 11/07/21 15:35 Respiratory Effort 11/07/21 15:35 Respiratory Depth Normal 11/07/21 15:35 Respiratory Pattern Normal 11/07/21 15:35 Blood Pressure 151/72 H 11/07/21 15:35 Blood Pressure Mean 85 11/07/21 00:19 Blood Pressure Position Supine 11/06/21 21:24 Pulse Oximetry 98 11/07/21 15:35 Oxygen Delivery Method Room Air 11/07/21 15:35 Oxygen Flow Rate 0 11/07/21 15:35 Pain Level 0 11/07/21 15:35 Intake & Output 11/06/21 11/07/21 11/07/21 23:59 11:59 23:59 Intake Total 500 / 740 240 / 740 Output Total 950 / 1250 300 / 1250 Balance -450 / -510 -60 / -510 Weight 81.647 kg 82.3 kg Intake: IV 500 / 500 Oral 240 / 240 Output: Urine 950 / 1250 300 / 1250 Other: Urine Color Yellow Straw Urine Appearance Clear Clear Urine Odor Normal Voiding Methods Urinal Urinal Data Completed and Pending Completed studies during hospitalization [Text1]: CT/CTA brain: 1. No significant stenosis in the right carotid artery in the neck. There appears to been probable endarterectomy with significant improvement compared to the 2019 study. 2.? Approximately 50 percent stenosis again noted at the left carotid bifurcation-proximal left ICA. 3. ? Dominant left vertebral artery/narrow right vertebral artery again noted. 4. Significant stenosis again noted in the distal right vertebral artery at the skull base. The left vertebral artery is the dominant contributor to the normal diameter basilar artery. 5. Unchanged 60 percent stenosis in the supraclinoid right ICA., unchanged from 2019 study. 6. 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 7. Posterior cerebral arteries are patent. 8. No aneurysms. 9. No ring enhancing lesions in the brain and no abnormal meningeal enhancement. CXR: No acute pulmonary findings. MRI brain : No acute intracranial findings.? Mild bilateral periventricular white matter chronic signal abnormality.? No evidence of acute infarct nor intra-axial hemorrhage Symmetrically enlarged CSF space over both frontal lobes either due to atrophy or small bifrontal hygromas. Pending studies at discharge: Echo read Labs on day of discharge: Labs from last 24 hours 11/07/21 11/07/21 11/07/21 08:43 06:55 06:55 WBC RBC Hgb Hct MCV MCH MCHC RDW Plt Count MPV Immature Gran % Neutrophils % Lymphocytes % Monocytes % Eosinophils % Basophils % Nucleated RBC % Absolute Neutrophils Absolute Lymphocytes Absolute Monocytes Absolute Eosinophils Absolute Basophils PT INR APTT Sodium 126 L Potassium Chloride Carbon Dioxide Anion Gap BUN Creatinine Est GFR (CKD-EPI 2020) Glucose Hemoglobin A1c Calcium Total Bilirubin AST ALT Alkaline Phosphatase Troponin I Total Protein Albumin Triglycerides 31 Total Cholesterol 131 LDL Cholesterol, Calc 68 HDL Cholesterol 57 Vitamin B12 245 TSH 2.90 Free T4 Urine Color Urine Clarity Urine pH Ur Specific Cameron Urine Protein Urine Ketones Urine Blood Urine Nitrite Urine Bilirubin Urine Urobilinogen Ur Leukocyte Esterase Urine Glucose Urine Opiates Screen Urine Methadone Screen Ur Barbiturates Screen Ur Tricyclics Screen Ur Amphetamines Screen U Benzodiazepines Scrn Urine Cocaine Screen Ur THC Screen Ethyl Alcohol COVID-19 Source SARS-CoV-2 (PCR) Add-On Test Request DONE 11/07/21 11/06/21 11/06/21 02:02 22:37 22:37 WBC RBC Hgb Hct MCV MCH MCHC RDW Plt Count MPV Immature Gran % Neutrophils % Lymphocytes % Monocytes % Eosinophils % Basophils % Nucleated RBC % Absolute Neutrophils Absolute Lymphocytes Absolute Monocytes Absolute Eosinophils Absolute Basophils PT INR APTT Sodium Potassium Chloride Carbon Dioxide Anion Gap BUN Creatinine Est GFR (CKD-EPI 2020) Glucose Hemoglobin A1c Calcium Total Bilirubin AST ALT Alkaline Phosphatase Troponin I Total Protein Albumin Triglycerides Total Cholesterol LDL Cholesterol, Calc HDL Cholesterol Vitamin B12 TSH Free T4 Urine Color Yellow Urine Clarity Clear Urine pH 6.5 Ur Specific Cameron 1.020 Urine Protein Negative Urine Ketones Negative Urine Blood Negative Urine Nitrite Negative Urine Bilirubin Negative Urine Urobilinogen 0.2 Ur Leukocyte Esterase Negative Urine Glucose Negative Urine Opiates Screen Negative Urine Methadone Screen Negative Ur Barbiturates Screen Negative Ur Tricyclics Screen Negative Ur Amphetamines Screen Negative U Benzodiazepines Scrn Negative Urine Cocaine Screen Negative Ur THC Screen Negative Ethyl Alcohol COVID-19 Source Nasal/Nares SARS-CoV-2 (PCR) POSITIVE A* Add-On Test Request 11/06/21 11/06/21 11/06/21 21:49 21:40 21:40 WBC RBC Hgb Hct MCV MCH MCHC RDW Plt Count MPV Immature Gran % Neutrophils % Lymphocytes % Monocytes % Eosinophils % Basophils % Nucleated RBC % Absolute Neutrophils Absolute Lymphocytes Absolute Monocytes Absolute Eosinophils Absolute Basophils PT 9.9 INR 1.0 APTT 25.6 Sodium 125 L Potassium 4.3 Chloride 91 L Carbon Dioxide 29.2 Anion Gap 4.8 BUN 17 Creatinine 0.9 Est GFR (CKD-EPI 2020) 88.51 Glucose 116 H Hemoglobin A1c 6.2 H Calcium 8.9 Total Bilirubin 0.3 AST 15 ALT 29 Alkaline Phosphatase 112 Troponin I < 50 Total Protein 7.1 Albumin 4.0 Triglycerides Total Cholesterol LDL Cholesterol, Calc HDL Cholesterol Vitamin B12 TSH 4.21 H Free T4 1.09 Urine Color Urine Clarity Urine pH Ur Specific Cameron Urine Protein Urine Ketones Urine Blood Urine Nitrite Urine Bilirubin Urine Urobilinogen Ur Leukocyte Esterase Urine Glucose Urine Opiates Screen Urine Methadone Screen Ur Barbiturates Screen Ur Tricyclics Screen Ur Amphetamines Screen U Benzodiazepines Scrn Urine Cocaine Screen Ur THC Screen Ethyl Alcohol < 3.0 COVID-19 Source SARS-CoV-2 (PCR) Add-On Test Request 11/06/21 21:40 WBC 6.50 RBC 3.60 L Hgb 11.4 L Hct 33.0 L MCV 92 MCH 31.7 MCHC 34.5 RDW 12.3 Plt Count 302 MPV 9.4 Immature Gran % 0.3 Neutrophils % 35.6 Lymphocytes % 40.5 Monocytes % 12.5 Eosinophils % 10.0 Basophils % 1.1 Nucleated RBC % 0.0 Absolute Neutrophils 2.32 Absolute Lymphocytes 2.63 Absolute Monocytes 0.81 H Absolute Eosinophils 0.65 Absolute Basophils 0.07 PT INR APTT Sodium Potassium Chloride Carbon Dioxide Anion Gap BUN Creatinine Est GFR (CKD-EPI 2020) Glucose Hemoglobin A1c Calcium Total Bilirubin AST ALT Alkaline Phosphatase Troponin I Total Protein Albumin Triglycerides Total Cholesterol LDL Cholesterol, Calc HDL Cholesterol Vitamin B12 TSH Free T4 Urine Color Urine Clarity Urine pH Ur Specific Cameron Urine Protein Urine Ketones Urine Blood Urine Nitrite Urine Bilirubin Urine Urobilinogen Ur Leukocyte Esterase Urine Glucose Urine Opiates Screen Urine Methadone Screen Ur Barbiturates Screen Ur Tricyclics Screen Ur Amphetamines Screen U Benzodiazepines Scrn Urine Cocaine Screen Ur THC Screen Ethyl Alcohol COVID-19 Source SARS-CoV-2 (PCR) Add-On Test Request PFSH All Active Problems Cerebral atherosclerosis (Acute) Hyponatremia (Acute) Atypical migraine (Acute) Stroke (Chronic) Diabetes mellitus (Acute) non-insulin dependent Chronic obstructive lung disease (Acute) quit smoking s; non-oxygen dependent ASCVD (arteriosclerotic cardiovascular disease) (Chronic) 11/01 CABG x 3 at [facility] [place] [place] (after NSTEMI) 04/[address] [facility] LVEF 60% Inferior HI 1998 Cardiomyopathy (Acute) Latest EF is 30-35% per echo 11/09/182021 EF 50% Chronic systolic CHF (congestive heart failure) (Acute) Systolic heart failure (Acute) Screening for colon cancer (Acute) Dizziness (Acute) Vertebral artery stenosis (Acute) Medical History Acute right arterial ischemic stroke, middle cerebral artery (MCA) Anemia (10/28/12) iron deficiency 12/30 ([place]) normal EGD and colonoscopy BPH (benign prostatic hyperplasia) Bradycardia (11/24/14) on Amiodarone and Metoprolol Carotid stenosis Cervical herniated disc Cervical stenosis of spinal canal Chronic back pain CVA (cerebral vascular accident) 2019 Decreased hearing Depressive disorder (11/06/12) Difficulty hearing Gastroesophageal reflux disease History of viral hepatitis, type A Hyperlipidemia Hypertension Left hemiparesis Low back pain Paroxysmal atrial fibrillation (11/24/14) after CABG on warfarin Paroxysmal atrial fibrillation (11/24/14) Sensorineural hearing loss STEMI (ST elevation myocardial infarction) (~11/14/15) 2015 Stroke 2019 Surgical History S/P CABG x 3 2014 S/P carotid endarterectomy S/P coronary artery stent placement x1 S/P hernia repair (~2012) incisional umbilical hernia repair by Dr Abiel Rivera, [facility] on 07/16/2016, right inguinal hernia repair with Dr Lan Mendoza, [facility] on 01/29/13 and on 08/13/[address] [facility] by Dr Mendoza a repair of incisional hernia with hydrocele repair on the right. S/P repair of hydrocele S/P tonsillectomy Status post inguinal hernia repair VIDEO CAPSULE ENDOSCOPY (10/13/13) [facility] [place] Family History Mother Essential hypertension Heart disease Hyperlipidemia Father Heart disease Sister Essential hypertension Hyperlipidemia Brother , Farming accident No problems noted. Brother Stroke Brother Essential hypertension Heart disease Hyperlipidemia Brother Essential hypertension Hyperlipidemia Brother Heart disease bypass surgeries Grandfather Heart disease Grandfather No problems noted. Grandmother Personal history of malignant neoplasm Lung Heart disease Grandmother No problems noted. Social History Smoking/Tobacco Use Status: Former Tobacco Use Quit Date: 02/17/1967 Tobacco: How many years used: 7 Smoking risk assessment performed?: Yes Alcohol Intake: former Details: history of alcohol abuse Drug use: Never Substance use type: does not use Do you feel safe at home: Yes Do you feel safe in your relationship?: Yes
--- NOTE | 2021-11-07 18:26 | PDOC.CMDIS ---
- If Service Date Differs Date of service: 11/07/21 Time of Service: 18:26 LACE Index Scoring Tool - Questions: Length of Stay (in days): 1 Acuity (Admit via E.D.?): Yes Comorbidities: Previous M.I., Cerebrovascular Disease, Diabetes w/o Complication E.D. Visits: 1 - Answers: Total Score: 8 Risk of Readmission: Low Risk Care Management Discharge Reason for Hospitalization: Stroke Discharge Plan: Ramses will be discharged home with no new services. He will follow up with his community providers and plan of care and transport with family. Patient/Family Education Needs: Review of discharge instructions, limitations, activity, medications, follow up plan, Ask Me Three
== END 2021-11-07 18:00 | disposition home or self-care (01) ==
LOC: ER 11-07 01:43 → MS 11-07 02:21
PROVIDERS: Internal Medicine; Admitting Provider General Practice; Emergency Provider Emergency Medicine; PCP Nurse Practitioner; Visit Provider General Practice
DX: G43.009 Migraine without aura, not intractable, without status migrainosus; E87.1 Hypo-osmolality and hyponatremia; E78.5 Hyperlipidemia, unspecified; I25.10 Atherosclerotic heart disease of native coronary artery without angina pectoris; E11.9 Type 2 diabetes mellitus without complications; I50.22 Chronic systolic (congestive) heart failure; R42 Dizziness and giddiness; Z79.84 Long term (current) use of oral hypoglycemic drugs; Z79.899 Other long term (current) drug therapy; I65.02 Occlusion and stenosis of left vertebral artery; I65.23 Occlusion and stenosis of bilateral carotid arteries; Z20.822 Contact with and (suspected) exposure to COVID-19; I11.0 Hypertensive heart disease with heart failure; Z86.73 Personal history of transient ischemic attack (TIA), and cerebral infarction without residual deficits; J44.9 Chronic obstructive pulmonary disease, unspecified; Z95.1 Presence of aortocoronary bypass graft; I42.9 Cardiomyopathy, unspecified; D50.9 Iron deficiency anemia, unspecified; N40.0 Benign prostatic hyperplasia without lower urinary tract symptoms; G89.29 Other chronic pain; M54.9 Dorsalgia, unspecified; I48.0 Paroxysmal atrial fibrillation; I25.2 Old myocardial infarction; I67.2 Cerebral atherosclerosis
CPT/HCPCS: 36415; 70496; 70498; 80053; 80061; 80307; 87635; 93005; 93306; 94640; 96360; 96361; 97161; 97530; 99215; 99285; 70551; 71046; 80320; 81003; 82607; 83036; 84295; 84439; 84443; 84484; 85025; 85610; 85730; 93010; 99235; G0378; J3490

== ENCOUNTER 2022-07-10 05:47 | Outpatient (CLI) | payer OTHER, SELFPAY ==
[2022-07-10 12:37] LABS: Sodium 130 mmol/L (136-145)
[2022-07-10 13:12] LABS: Lab Add On Test DONE
[2022-07-10 13:14] LABS: Potassium 4.6 mmol/L (3.5-5.1)
== END 2022-07-10 05:48 | disposition home or self-care (01) ==
LOC: LOS 05:48
PROVIDERS: PCP Family Medicine; Visit Provider Family Medicine
DX: E87.1 Hypo-osmolality and hyponatremia (principal); E11.9 Type 2 diabetes mellitus without complications
CPT/HCPCS: 36415; 83036; 84132; 84295

== ENCOUNTER → 2022-07-25 13:01 | Outpatient (BNVA) | payer OTHER, SELFPAY | PROVIDERS: PCP Family Medicine; Referring Provider Nurse Practitioner; Visit Provider Internal Medicine Cardiovascular Disease | DX: I25.10 Atherosclerotic heart disease of native coronary artery without angina pectoris (principal); I42.9 Cardiomyopathy, unspecified | CPT/HCPCS: 99214 ==

== ENCOUNTER 2022-11-19 15:43 | Outpatient (CLI) | payer OTHER, SELFPAY ==
--- NOTE | 2022-11-19 15:30 | RT.EKG_ITS ---
APPROVED REPORT Exam: Resting ECG Reason for Exam: Annual/SOB Patient Location: O HR:74 bpm ECG Measurements Heart Rate 74 AXIS [place] [id number] P [id number] QRSd 111 QRS 39 QT 362 T 212 QTc 402 Conclusion Atrial fibrillation...V-rate 64- 99, irreg A-activity Ventricular bigeminy...bigeminy string>4 w/ V complexes Probable LVH with secondary repol abnrm...multiple LVH criteria
== END 2022-11-19 15:44 | disposition home or self-care (01) ==
LOC: DI.CM 15:44
PROVIDERS: PCP Family Medicine; Visit Provider Family Medicine
DX: R06.02 Shortness of breath (principal)
CPT/HCPCS: 93010

== ENCOUNTER 2022-11-21 05:02 | Outpatient (CLI) | payer OTHER, SELFPAY ==
[2022-11-21 12:56] LABS: HCT 31.4 % (40.0-50.0); HGB 10.6 g/dL (13.5-17.5); MCHC 33.8 % (32.0-36.0); MCV 95 fL (80-95); MPV 10.3 fL (8.0-11.0); Platelet Count 264 10^3/uL (130-400); RBC 3.31 10^6/uL (4.36-5.78); RDW 13.8 % (11.8-14.1); RDW-SD 48.2 fL; WBC 6.59 10^3/uL (4.4-10.8)
[2022-11-21 13:30] LABS: Sodium 128 mmol/L (136-145)
[2022-11-24 09:46] LABS: Lab Add On Test DONE
[2022-11-24 10:05] LABS: Iron 54 ug/dL (65-175)
[2022-11-24 10:18] LABS: Ferritin 108 ng/mL (26-388)
== END 2022-11-21 05:03 | disposition home or self-care (01) ==
LOC: LOS 05:03
PROVIDERS: PCP Family Medicine; Visit Provider Family Medicine
DX: R53.83 Other fatigue (principal); E87.1 Hypo-osmolality and hyponatremia; Z12.5 Encounter for screening for malignant neoplasm of prostate
CPT/HCPCS: 36415; 85027; 82728; 83540; 84295